=== PATIENT | female | born 2000 | race Caucasian/White ===

== ENCOUNTER 2018-07-16 19:07 | Emergency (ER) | payer MEDICAID, OTHER ==
[~2018-07-16] VITALS: Ht 167.6 cm; Wt 76.2 kg
[~2018-07-16 19:07] MED LIST: NORG1TAB7 PO
[2018-07-16 20:35] LABS: BASOPHILS % (AUTO) 0 % (0-10); EOSINOPHILS # (AUTO) 0.3 10^3/uL (0.0-0.3); EOSINOPHILS % (AUTO) 2 % (0-10); HEMATOCRIT 40 % (35-52); HEMOGLOBIN 13.4 G/DL (11.5-16.0); LYMPHOCYTES # (AUTO) 2.2 X 10^3 (1.0-4.0); LYMPHOCYTES % (AUTO) 22 % (12-44); MEAN CORPUSCULAR HEMOGLOBIN 30 PG (25-34); MEAN CORPUSCULAR HGB CONC 34 G/DL (32-36); MEAN CORPUSCULAR VOLUME 88 FL (80-99); MEAN PLATELET VOLUME 9.8 FL (7.4-10.4); MONOCYTES # (AUTO) 0.6 X 10^3 (0.0-1.0); MONOCYTES % (AUTO) 6 % (0-12); NEUTROPHILS # (AUTO) 7.2 X 10^3 (1.8-7.8); NEUTROPHILS % (AUTO) 70 % (42-75); PLATELET COUNT 308 10^3/uL (130-400); RED BLOOD COUNT 4.53 10^6/uL (4.35-5.85); RED CELL DISTRIBUTION WIDTH 12.2 % (10.0-14.5); WHITE BLOOD COUNT 10.3 10^3/uL (4.3-11.0)
[2018-07-16 20:56] LABS: BILIRUBIN,URINE NEGATIVE (NEGATIVE); CLARITY,URINE CLEAR; COLOR,URINE YELLOW; GLUCOSE, URINE (UA) NEGATIVE (NEGATIVE); KETONES,URINE NEGATIVE (NEGATIVE); LEUKOCYTE ESTERASE ,URINE 1+ (NEGATIVE); NITRITE,URINE NEGATIVE (NEGATIVE); PH,URINE 7 (5-9); PROTEIN,URINE NEGATIVE (NEGATIVE); UROBILINOGEN,URINE NORMAL (NORMAL)
[2018-07-16 21:00] LABS: ALANINE AMINOTRANSFERASE 8 U/L (0-55); ALBUMIN 4.4 GM/DL (3.2-4.5); ALKALINE PHOSPHATASE 69 U/L (40-136); AMYLASE 46 U/L (25-125); BILIRUBIN,TOTAL 0.4 MG/DL (0.1-1.0); CALCIUM 9.8 MG/DL (8.5-10.1); CARBON DIOXIDE 25 MMOL/L (21-32); CHLORIDE 104 MMOL/L (98-107); GLUCOSE 78 MG/DL (70-105); LIPASE 50 U/L (8-78); POTASSIUM 3.6 MMOL/L (3.6-5.0); SODIUM 141 MMOL/L (135-145); TOTAL PROTEIN 8.2 GM/DL (6.4-8.2)
[2018-07-16 21:10] LABS: AMPHETAMINE SCREEN, URINE NEGATIVE (NEGATIVE); BACTERIA,URINE FEW /HPF; BARBITURATE SCREEN URINE NEGATIVE (NEGATIVE); BENZODIAZEPINES SCREEN URINE NEGATIVE (NEGATIVE); CANNABINOID SCREEN, URINE NEGATIVE (NEGATIVE); COCAINE SCREEN URINE NEGATIVE (NEGATIVE); METHADONE STAT NEGATIVE (NEGATIVE); METHAMPHETAMINE SCREEN URINE S NEGATIVE (NEGATIVE); OPIATE SCREEN URINE NEGATIVE (NEGATIVE); OXYCODONE STAT NEGATIVE (NEGATIVE); PROPOXYPHENE STAT NEGATIVE (NEGATIVE); TRICYCLIC ANTIDEPRESSANTS SCRE NEGATIVE (NEGATIVE)
[2018-07-16 21:11] LABS: AMORPHOUS SEDIMENT,UR MOD AMOR PHOSPHATE /LPF
[2018-07-16 21:20] LABS: BUN/CREATININE RATIO 13; CREATININE SERUM 0.82 MG/DL (0.60-1.30); GFR ESTIMATED > 60; MAGNESIUM 2.3 MG/DL (1.8-2.4)
[2018-07-16] MEDS ORDERED: NS 250 ML (IVPB) BAG IV ONE (21:30)
[2018-07-16] MEDS ORDERED: IOHEXOL 350 MG/ML 100 ML (OMNIPAQUE 350) VIAL IV ONE (21:30)
[2018-07-16] MEDS ORDERED: RECEIVED CONTRAST (Hold Metformin) IV SCH (21:30)
--- NOTE | 2018-07-16 21:38 | ED General ---
General Chief Complaint: Cough/Cold/Flu Symptoms Stated Complaint: ABD PAIN Nursing Triage Note: PT STATES THAT FOR THE LAST MONTH AND A HALF, SHE HAS HAD ABDOMINAL PAIN AND NAUSEA INTERMITTENTLY. DENIES DIARRHEA OR VOMITING Source of Information: Patient (MULTIPLE COMPLAINTS, DIFFICULT TO KEEP ON SUBJECT, GIVES MUCH INCONSISTENT/CONFLICTING INFORMATION) History of Present Illness Date Seen by Provider: Jul 16, 2018 Time Seen by Provider: 20:05 Initial Comments MULTIPLE COMPLAINTS PT C/O MID ABDOMINAL PAIN OFF AND ON --STATES SHE HAS "HAD IT OFF AND ON FOR A LONG TIME" STATES IT HAS BEEN WORSE FOR THE LAST 1 1/2 MONTHS C/O NAUSEA 2 WEEKS AGO, BUT NONE SINCE. NO VOMITING NO DIARRHEA LAST BM 2 DAYS AGO, NORMAL NO URINARY SYMPTOMS C/O COUGH AND NASAL CONGESTION FOR A COUPLE OF WEEKS DOES NOT KNOW IS SHE HAS HAD FEVER OR NOT. NONE OF THESE SYMPTOMS ARE DIFFERENT TODAY IN ANY WAY HAS NOT SOUGHT CARE AT ANY TIME FOR THESE COMPLAINTS HAS NOT TAKEN ANYTHING FOR SYMPTOMS AT ANY TIME PT STATES "MY DAD WANTED ME TO SEE IF I WAS WITH TWINS" LMP BEGINNING OF JUNE. NO CONTROL. STATES PERIODS ARE ALWAYS IRREGULAR. NO PERIOD IN MAY PT MOVED HERE TO [place] FROM [place], [place] ABOUT A MONTH AGO PT'S 18 MONTH OLD CHILD WAS ADMITTED LAST WEEK 07/11 FOR PNEUMONIA AND IS STILL IN THE HOSPITAL. PT GIVES MUCH CONFLICTING INFORMATION TO WHO LIVES AT THE RESIDENCE--FIRST PT STATES "6" TOTAL, THEN STATES 5 ADULTS AND 3 KIDS. 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 REPORTEDLY ALL ADULTS IN HOME SMOKE PCP: NONE Allergies and Home Medications Allergies Coded Allergies: amoxicillin (Verified Allergy, Unknown, 05/22/15) penicillin (Verified Allergy, Unknown, 05/22/15) Home Medications Cefdinir 300 Mg Capsule, 300 MG PO BID Prescribed by: LILLY CASTREJON on 07/16/182241 Hyoscyamine Sulfate 0.125 Mg Tab.subl, 1-2 TAB SL Q4H Prescribed by: LILLY CASTREJON on 07/16/182241 Norgestimate-Ethinyl Estradiol 1 Each Tablet, 1 EACH PO UD Prescribed by: SAMANTHA FAY on 05/22/15 1725 Pantoprazole Sodium 40 Mg Tablet.dr, 40 MG PO DAILY Prescribed by: LILLY CASTREJON on 07/16/182241 Patient Home Medication List Home Medication List Reviewed: Yes Review of Systems Review of Systems Constitutional: see HPI, malaise EENTM: see HPI, nose congestion Respiratory: see HPI, cough; No short of breath, No wheezing Cardiovascular: no symptoms reported Gastrointestinal: see HPI, abdominal pain; No constipation, No diarrhea; nausea ; No vomiting Genitourinary: no symptoms reported : No LMP: Jun 24, 2018 Musculoskeletal: no symptoms reported Skin: no symptoms reported Psychiatric/Neurological: No Symptoms Reported Hematologic/Lymphatic: No Symptoms Reported Immunological/Allergic: no symptoms reported Past Vjimiin-Kdetqc-Xznicx Hx Patient Social History Alcohol Use: Denies Use Recreational Drug Use: No Smoking Status: Current Everyday Smoker (1 PPD) Type Used: Cigarettes Recent Foreign Travel: No Contact w/Someone Who Travel: No Recent Infectious Disease Expo: No Recent Hopitalizations: No Immunizations Up To Date PED Vaccines UTD: Yes Seasonal Allergies Seasonal Allergies: No Past Medical History Surgeries: No Respiratory: Yes Asthma Cardiac: No Neurological: No Reproductive Disorders: No Female Reproductive Disorders: Menstrual Problems Genitourinary: Yes Kidney Stones, UTI-Chronic Gastrointestinal: No Musculoskeletal: No Endocrine: No HEENT: No Cancer: No Psychosocial: Yes Anxiety, Depression Integumentary: No Blood Disorders: No Family Medical History No Pertinent Family Hx Physical Exam Vital Signs Vital Signs - First Documented 07/16/18 19:52 Temp 98.0 Pulse 100 Resp 20 B/P (MAP) 126/83 Pulse Ox 99 O2 Delivery Room Air Capillary Refill : Height, Weight, BMI Height: 5'6" Weight: 168lbs. oz. 76.973460ui; 27.11 BMI Method:Stated General Appearance: No Apparent Distress, WD/WN, Other ("SOBBING" BUT NO TEARS. DRAMATIC. DIFFICULT TO KEEP ON SUBJECT--ACTS VERY "SPACEY". REEKS OF CIGARETTES ) HEENT: PERRL/EOMI Neck: Full Range of Motion, Normal Inspection, Non Tender, Supple Respiratory: Normal Breath Sounds, No Accessory Muscle Use, No Respiratory Distress Cardiovascular: Regular Rate, Rhythm, No Edema, No JVD, No Murmur, Normal Peripheral Pulses Gastrointestinal: Normal Bowel Sounds, No Organomegaly, No Pulsatile Mass, Soft ; No Distended, No Guarding, No Hernia, No Mass; Tenderness (DIFFUSE TENDERNESS , MOST TENDER IN EPIGASTRIC AND RUQ. ) Back: Normal Inspection, No CVA Tenderness, No Vertebral Tenderness Extremity: Normal Capillary Refill, Normal Inspection, Normal Range of Motion, Non Tender, No Calf Tenderness, No Pedal Edema Neurologic/Psychiatric: Alert, Oriented x3, No Motor/Sensory Deficits, acid tank cleaner II- XII Norm as Tested Skin: Normal Color, Warm/Dry; No Rash Focused Exam Lactate Level 07/16/18 20:23: Lactic Acid Level 0.85 Lactic Acid Level Progress/Results/Core Measures Suspected Sepsis SIRS Temperature:98.0 Pulse: Respiratory Rate: Laboratory Tests 07/16/18 20:23: White Blood Count 10.3 Blood Pressure / Mean: 07/16/18 20:23: Lactic Acid Level 0.85 Laboratory Tests 07/16/18 20:23: Creatinine 0.82, Platelet Count 308, Total Bilirubin 0.4 Results/Orders Lab Results Laboratory Tests Test 07/16/18 20:11 07/16/18 20:23 Range/Units Urine Color YELLOW Urine Clarity CLEAR Urine pH 7 5-9 Urine Specific [place] 1.020 1.016-1.022 Urine Protein NEGATIVE NEGATIVE Urine Glucose (UA) NEGATIVE NEGATIVE Urine Ketones NEGATIVE NEGATIVE Urine Nitrite NEGATIVE NEGATIVE Urine Bilirubin NEGATIVE NEGATIVE Urine Urobilinogen NORMAL NORMAL MG/DL Urine Leukocyte Esterase 1+ H NEGATIVE Urine RBC (Auto) NEGATIVE NEGATIVE Urine RBC NONE /HPF Urine WBC 2-5 /HPF Urine Crystals PRESENT H /LPF Urine Amorphous Sediment MOD SHANIQUE PHOSPHATE H /LPF Urine Bacteria FEW H /HPF Urine Casts NONE /LPF Urine Mucus NEGATIVE /LPF Urine Culture Indicated NO Urine Opiates Screen NEGATIVE NEGATIVE Urine Oxycodone Screen NEGATIVE NEGATIVE Urine Methadone Screen NEGATIVE NEGATIVE Urine Propoxyphene Screen NEGATIVE NEGATIVE Urine Barbiturates Screen NEGATIVE NEGATIVE Ur Tricyclic Antidepressants Screen NEGATIVE NEGATIVE Urine Phencyclidine Screen NEGATIVE NEGATIVE Urine Amphetamines Screen NEGATIVE NEGATIVE Urine Methamphetamines Screen NEGATIVE NEGATIVE Urine Benzodiazepines Screen NEGATIVE NEGATIVE Urine Cocaine Screen NEGATIVE NEGATIVE Urine Cannabinoids Screen NEGATIVE NEGATIVE White Blood Count 10.3 4.3-11.0 10^3/uL Red Blood Count 4.53 4.35-5.85 10^6/uL Hemoglobin 13.4 11.5-16.0 G/DL Hematocrit 40 35-52 % Mean Corpuscular Volume 88 80-99 FL Mean Corpuscular Hemoglobin 30 25-34 PG Mean Corpuscular Hemoglobin Concent 34 32-36 G/DL Red Cell Distribution Width 12.2 10.0-14.5 % Platelet Count 308 130-400 10^3/uL Mean Platelet Volume 9.8 7.4-10.4 FL Neutrophils (%) (Auto) 70 42-75 % Lymphocytes (%) (Auto) 22 12-44 % Monocytes (%) (Auto) 6 0-12 % Eosinophils (%) (Auto) 2 0-10 % Basophils (%) (Auto) 0 0-10 % Neutrophils # (Auto) 7.2 1.8-7.8 X 10^3 Lymphocytes # (Auto) 2.2 1.0-4.0 X 10^3 Monocytes # (Auto) 0.6 0.0-1.0 X 10^3 Eosinophils # (Auto) 0.3 0.0-0.3 10^3/uL Basophils # (Auto) 0.0 0.0-0.1 10^3/uL Sodium Level 141 135-145 MMOL/L Potassium Level 3.6 3.6-5.0 MMOL/L Chloride Level 104 98-107 MMOL/L Carbon Dioxide Level 25 21-32 MMOL/L Anion Gap 12 5-14 MMOL/L Blood Urea Nitrogen 11 7-18 MG/DL Creatinine 0.82 0.60-1.30 MG/DL Estimat Glomerular Filtration Rate > 60 BUN/Creatinine Ratio 13 Glucose Level 78 70-105 MG/DL Lactic Acid Level 0.85 0.50-2.00 MMOL/L Calcium Level 9.8 8.5-10.1 MG/DL Corrected Calcium 9.5 8.5-10.1 MG/DL Magnesium Level 2.3 1.8-2.4 MG/DL Total Bilirubin 0.4 0.1-1.0 MG/DL Aspartate Amino Transf (AST/SGOT) 14 5-34 U/L Alanine Aminotransferase (ALT/SGPT) 8 0-55 U/L Alkaline Phosphatase 69 40-136 U/L Total Protein 8.2 6.4-8.2 GM/DL Albumin 4.4 3.2-4.5 GM/DL Amylase Level 46 25-125 U/L Lipase 50 8-78 U/L Serum Test, Qualitative NEGATIVE NEGATIVE Serum Alcohol < 10 <10 MG/DL Micro Results Microbiology 07/16/18 Influenza Types A,B Antigen (GABI) - Final, Complete My Orders Orders - LUCÍALILLY Katherine DO Saline Lock/Iv-Start (07/16/18 20:15) Urine Bedside (07/16/18 20:15) Amylase (07/16/18 20:15) Cbc With Automated Diff (07/16/18 20:15) Comprehensive Metabolic Panel (07/16/18 20:15) Drug Screen Stat (Urine) (07/16/18 20:15) Lactic Acid Analyzer (07/16/18 20:15) Magnesium (07/16/18 20:15) Ua Culture If Indicated (07/16/18 20:15) Blood Culture (07/16/18 20:15) Influenza A And B Antigens (07/16/18 20:15) Chest Pa/Lat (2 View) (07/16/18 20:15) Alcohol (07/16/18 20:15) Lipase (07/16/18 20:15) Hcg,Qualitative Serum (07/16/18 20:48) Ct Abdomen/Pelvis W (07/16/18 21:17) Iohexol Injection (Omnipaque 350 Mg/Ml 1 (07/16/18 21:30) Contrast Received (Contrast Received) (07/16/18 21:30) Ns (Ivpb) (Sodium Chloride 0.9%) (07/16/18 21:30) Medications Given in ED Current Medications Medications Dose Ordered Sig/Albin Route Start Time Stop Time Status Last Admin Dose Admin Iohexol 100 ml ONCE ONCE IV 07/16/18 21:30 07/16/18 21:45 DC 07/16/18 21:36 100 ML Sodium Chloride 250 ml ONCE ONCE IV 07/16/18 21:30 07/16/18 21:45 DC 07/16/18 21:36 80 ML Vital Signs/I&O 07/16/18 07/16/18 19:52 23:10 Temp 98.0 98.0 Pulse 100 100 Resp 20 20 B/P (MAP) 126/83 Pulse Ox 99 99 O2 Delivery Room Air Room Air Capillary Refill : Progress Note : Progress Note NO COUGH NOTED AT ANY TIME NO FURTHER C/O ABDOMINAL PAIN OR ANY OTHER SYMPTOMS FOR REMAINDER OF ER STAY STRESSED THE IMPORTANCE OF ESTABLISHING WITH LOCAL DR SOON POSSIBLE--PT SEEMED TO HAVE DIFFICULTY UNDERSTANDING THIS CONCEPT. Diagnostic Imaging Comments CT ABDOMEN/PELVIS--NO ACUTE PROCESS, SMALL RIGHT OVARIAN CYST AND TRACE FREE PELVIC FLUID, PER RADIOLOGIST REPORT @ 2238 CXR-NO ACUTE PROCESS, PER RADIOLOGIST REPORT AT 2238 Reviewed: Reviewed by Me Departure Impression Primary Impression: Abdominal pain Additional Impression: Upper respiratory infection Disposition: HOME, SELF-CARE Condition: Stable Departure-Patient Inst. Referrals: NO,LOCAL PHYSICIAN (PCP/Family) Primary Care Physician Patient Instructions: Acute Abdomen (Belly Pain), Adult (DC), Cough, Runny Nose , and the Common Cold (DC) Add. Discharge Instructions: LOTS OF CLEAR LIQUIDS TYLENOL AND MOTRIN NEEDED FOR PAIN OR FEVER OVER THE COUNTER MEDICATIONS FOR COUGH AND CONGESTION FOLLOW UP WITH DR. OF [place] IN 4-5 DAYS IF NO BETTER, OTHERWISE CALL IN AM TO ARRANGE FOR FOLLOW UP APPOINTMENT TO ESTABLISH CARE WITH DR OF CHOICE All discharge instructions reviewed with patient and/or family. Voiced understanding. Scripts Pantoprazole Sodium (Protonix) 40 Mg Tablet.dr 40 MG PO DAILY, #15 TAB Prov: LILLY CASTREJON DO 07/16/18 Hyoscyamine Sulfate (Levsin-Sl) 0.125 Mg Tab.subl 1-2 TAB SL Q4H for Abdominal Pain, #10 TAB Prov: LILLY CASTREJON DO 07/16/18 Cefdinir (Cefdinir) 300 Mg Capsule 300 MG PO BID for FOR INFECTION, #20 CAP Prov: LILLY CASTREJON DO 07/16/18 LILLY CASTREJON DO Jul 16, 2018 21:37
--- NOTE | 2018-07-16 21:41 | Diagnostic Imaging Report ---
INDICATION: Cough. Fever. Shortness of air. COMPARISON: None FINDINGS: Frontal and lateral views of the chest demonstrate normal heart size and pulmonary vascularity. The lungs are clear. There are no signs of infiltrate, pleural effusions or pneumothoraces. The visualized osseous structures show no acute abnormalities. IMPRESSION: 1. No acute process. No signs of infiltrates, effusions or pneumothoraces. Dictated by: Dictated on workstation # [id number]
--- NOTE | 2018-07-16 22:32 | Diagnostic Imaging Report ---
PROCEDURE: CT abdomen and pelvis with contrast. TECHNIQUE: Multiple contiguous axial images were obtained through the abdomen and pelvis after administration of intravenous contrast. INDICATION: Right upper quadrant and right-sided flank pain. COMPARISON: None. FINDINGS: The included portions of the lung bases are clear. CT ABDOMEN: Small bowel loops are nondistended. Normal appendix is identified. Bilateral kidneys, adrenal glands, spleen, pancreas, and liver have an unremarkable CT appearance. There is focal fatty infiltrate of the liver along the falciform ligament anteriorly. There is no loculated fluid collection, free fluid, or free air within the abdomen. No abnormal mesenteric or retroperitoneal adenopathy is seen. Bony structures show no acute abnormalities. CT PELVIS: Right adnexal cystic structure measures 1.7 x 2.5 cm. There is small amount of free fluid within the pelvis. There is no loculated fluid collection or free air. No abnormal adenopathy is seen. Bony structures show no acute abnormalities. IMPRESSION: 1. Small amount of free fluid in the pelvis; likely physiologic. 2. Probable right ovarian cyst. Dictated by: Dictated on workstation # [id number]
[2018-07-16] MEDS ORDERED: HYOS0.1283 SL (22:42)
[2018-07-16] MEDS ORDERED: PANT40TA2 PO (22:42)
[2018-07-16] MEDS ORDERED: CEFD300C3 PO (22:42)
== END 2018-07-16 23:14 | disposition home or self-care (01) ==
LOC: EDUNIT# 19:07 → ER 19:08
DX: R10.13 Epigastric pain (principal); J06.9 Acute upper respiratory infection, unspecified; J45.909 Unspecified asthma, uncomplicated; F41.9 Anxiety disorder, unspecified; F32.9 Major depressive disorder, single episode, unspecified; F17.210 Nicotine dependence, cigarettes, uncomplicated; Z88.0 Allergy status to penicillin; Z87.442 Personal history of urinary calculi; Z87.440 Personal history of urinary (tract) infections
CPT/HCPCS: 36415; 71046; 74177; 80053; 80306; 80320; 81000; 82150; 83605; 83690; 83735; 84703; 85025; 87040; 87804

== ENCOUNTER → 2018-08-20 | Emergency (ER) | payer MEDICAID ==
[~2018-08-20] VITALS: Ht 167.6 cm; Wt 76.2 kg
[~2018-08-20] MED LIST changes: +CEFD300C3 PO; +HYOS0.1283 SL; +NITR-65 PO; +ONDANSETRON 4 MG (ZOFRAN) ORAL DISSOLVE TAB PO ONE; +PANT40TA2 PO; +RX-NITROFURANTOIN 100 MG (MACROBID) CAP PPK#2 PO STA
--- OUTSIDE RECORDS SUMMARY | 2018-08-20 18:18 | XMS REPORT | Referral Summary ---
Author Author [facility] Organization [facility] Address Unknown Phone Unavailable Care Team Providers Care Adjunct Instructor Name Role Phone Kosta Painter PCP Encounter VC Date(s): 12/14/16 - 12/14/16 [facility] [address] [place], [place] [address] Discharge Disposition: 01-Home or Self Care Attending Physician: Kosta Painter MD Admitting Physician: Kosta Painter MD Vital Signs Most recent to 1 oldest [Reference Range]: Temperature Oral 36.4 degC [35.8-37.3 degC] (12/14/16 6:38 PM) Peripheral Pulse 75 bpm Rate [60-100 bpm] (12/14/16 6:38 PM) Heart Rate Monitored 67 bpm [60-100 bpm] (12/14/16 8:15 PM) Respiratory Rate 18 br/min [14-20 br/min] (12/14/16 6:38 PM) Blood Pressure 88/59 mmHg [90-140/60-90 mmHg] *LOW* (12/14/16 8:15 PM) Problem List Condition Effective Dates Status Health Status Informant Beta lactam Active resistant bacterial infection(Confirmed) 1 Methicillin Active resistant Staphylococcus aureus(Confirmed)2 (Confirmed) 03/21/16 Active 1Skin from Arm L collected 07/11/16 16:06:00 CERTIFIED ATHLETIC TRAINER 2Skin from Arm L collected 07/11/16 16:06:00 CERTIFIED ATHLETIC TRAINER Allergies, Adverse Reactions, Alerts Substance Reaction Severity Status amoxicillin HIVES Active Medications ferrous sulfate Oral, 0 Refill(s) Start Date: 11/04/16 Status: Ordered FLUoxetine Oral, 0 Refill(s) Start Date: 11/04/16 Status: Ordered Multivitamins 1 tabs, Oral, Daily, 0 Refill(s) Start Date: 05/26/16 Status: Ordered ProAir HFA 90 mcg/inh inhalation aerosol 2 puffs, Inhalation, QID, as needed for wheezing, # 8.5 g, 11 Refill(s), Pharmacy: [facility] Start Date: 06/17/16 Status: Ordered Results Urinalysis Most recent to 1 oldest [Reference Range]: UA Color Yellow (12/14/16 7:55 PM) UA Appear Cloudy *ABN* (12/14/16 7:55 PM) UA pH [5.0-8.0] 6.0 (12/14/16 7:55 PM) UA Leuk Est Negative [Negative] (12/14/16 7:55 PM) UA Nitrite Negative [Negative] (12/14/16 7:55 PM) UA Protein Negative [Negative] (12/14/16 7:55 PM) UA Glucose Pos 1+ [Negative] *ABN* (12/14/16 7:55 PM) UA Ketones Negative [Negative] (12/14/16 7:55 PM) UA Urobilinogen Negative [<1.0] (12/14/16 7:55 PM) UA Bili [Negative] Negative (12/14/16 7:55 PM) UA Blood [Negative] Negative (12/14/16 7:55 PM) UA Spec Grav 1.015 [1.003-1.030] (12/14/16 7:55 PM) Type Clean Catch (12/14/16 7:55 PM) Microbiology Reports TEST: Affirm Vaginitis Panel STATUS: Auth (Verified) BODY SITE: SOURCE: Cervix/Vaginal COLLECTED DATE/TIME: 12/14/16 7:55 PM Affirm Vaginitis Panel Negative for Trichomonas vaginalis Negative for Gardnerella vaginalis Negative for Shira species Immunizations Given and Recorded Vaccine Date Status Refusal Reason tetanus/diphth/pertuss (Tdap) adult/adol 11/23/16 Given influenza virus vaccine, inactivated 05/26/16 Given Procedures No data available for this section Social History Social History Type Response Smoking Status Never smoker Assessment and Plan No data available for this section
--- OUTSIDE RECORDS SUMMARY | 2018-08-20 18:18 | XMS REPORT | Referral Summary ---
Author Author [facility] Organization [facility] Address Unknown Phone Unavailable Care Team Providers Care Hammer Fitter Name Role Phone Kosta Painter PCP Encounter VC Date(s): 01/04/17 - 01/04/17 [facility] [address], [address] [address] Discharge Diagnosis: Superficial thrombophlebitis Discharge Disposition: 01-Home or Self Care Attending Physician: Kosta Painter MD Vital Signs Most recent to 1 oldest [Reference Range]: Blood Pressure 100/70 mmHg [90-140/60-90 mmHg] (01/04/17 4:15 PM) Problem List Condition Effective Dates Status Health Status Informant Acute Active pain(Confirmed) Beta lactam Active resistant bacterial infection(Confirmed) 1 Methicillin Active resistant Staphylococcus aureus(Confirmed)2 (Confirmed) 03/21/16 - 12/31/16 Resolved 1Skin from Arm L collected 07/11/16 16:06:00 SENIOR GL ACCOUNTANT 2Skin from Arm L collected 07/11/16 16:06:00 SENIOR GL ACCOUNTANT Allergies, Adverse Reactions, Alerts Substance Reaction Severity Status amoxicillin HIVES Active Medications Colace 100 mg oral capsule 100 mg 1 caps, Oral, Daily, as needed for constipation, # 30 caps, 5 Refill(s) Start Date: 01/01/17 Status: Ordered FLUoxetine 10 mg oral capsule 10 mg 1 caps, Oral, Daily, # 30 caps, 0 Refill(s) Start Date: 01/02/17 Status: Ordered ibuprofen 800 mg oral tablet 800 mg 1 tabs, Oral, q8hr, as needed for pain, # 30 tabs, 0 Refill(s) Start Date: 01/01/17 Stop Date: 02/01/17 Status: Ordered Keflex 500 mg oral capsule 500 mg 1 caps, Oral, TID, X 7 days, # 21 caps, 0 Refill(s), Pharmacy: [facility], 1 caps Oral TID,x7 days Start Date: 01/04/17 Stop Date: 01/11/17 Status: Ordered Results No data available for this section Immunizations Given and Recorded Vaccine Date Status Refusal Reason tetanus/diphth/pertuss (Tdap) adult/adol 11/23/16 Given influenza virus vaccine, inactivated 05/26/16 Given Procedures No data available for this section Social History Social History Type Response Smoking Status Never smoker Assessment and Plan Extracted from: Title: Office Visit Note Author: Kosta Painter MD Date: 01/04/17 Assessment/Plan Superficial thrombophlebitis Keflex for a week and warm compresses, careful observation and call if this persists or worsens, her baby is still in the NICU at with suspected congenital CMV. Ordered: Office Visit Level 3 Est [address]902
--- OUTSIDE RECORDS SUMMARY | 2018-08-20 18:18 | XMS REPORT | Referral Summary ---
Author Author [facility] Organization [facility] Address Unknown Phone Unavailable Care Team Providers Care Synthetic Staple Extruder Name Role Phone Kosta Painter PCP Encounter VC Date(s): 05/27/16 - 05/27/[address] [facility] [address] [place], [place] [address] Discharge Diagnosis: Threatened miscarriage Final: Threatened Final: Less than 8 weeks gestation of Discharge Diagnosis: Threatened miscarriage Discharge Disposition: 01-Home or Self Care Attending Physician: Shannen Choudhury MD Admitting Physician: Shannen Choudhury MD Vital Signs Most recent to 1 oldest [Reference Range]: Temperature Oral 37.0 degC [36.0-37.6 degC] (05/27/16 11:42 AM) Peripheral Pulse 78 bpm Rate [55-90 bpm] (05/27/16 2:39 PM) Respiratory Rate 16 br/min [14-20 br/min] (05/27/16 2:39 PM) Blood Pressure 101/60 mmHg [90-138/45-84 mmHg] (05/27/16 2:39 PM) SpO2 100 % (05/27/16 2:39 PM) Problem List Condition Effective Dates Status Health Status Informant (Confirmed) 03/21/16 Active Allergies, Adverse Reactions, Alerts Substance Reaction Severity Status amoxicillin HIVES Active Medications Multivitamins 1 tabs, Oral, Daily, 0 Refill(s) Start Date: 05/26/16 Status: Ordered Zofran 0 Refill(s) Start Date: 05/27/16 Status: Ordered Results Chemistry Most recent to 1 oldest [Reference Range]: [place] [address] mIU/mL 1 (05/27/16 12:40 PM) 1Result Comment: Normal Ranges for Quantitative Beta-HCG are as follows: Non- Females: 0 - 5 Gestation Wks 95% Range 0.2 - 1 4 - 50 1 - 2 50 - 500 2 - 3 100 - 5000 3 - 4 500 - 10,000 4 - 5 1,000 - 50,000 5 - 6 10,000 - 100,000 6 - 8 15,000 - 200,000 8 - 12 10,000 - 100,000 Urinalysis Most recent to 1 oldest [Reference Range]: UA Color Yellow (05/27/16 12:22 PM) UA Appear Clear (05/27/16 12:22 PM) UA pH [5.0-8.0] 6.0 (05/27/16 12:22 PM) UA Leuk Est Pos 1+ [Negative] *ABN* (05/27/16 12:22 PM) UA Nitrite Negative [Negative] (05/27/16 12:22 PM) UA Protein Negative [Negative] (05/27/16 12:22 PM) UA Glucose Negative [Negative] (05/27/16 12:22 PM) UA Ketones Negative [Negative] (05/27/16 12:22 PM) UA Urobilinogen Negative [<1.0] (05/27/16 12:22 PM) UA Bili [Negative] Negative (05/27/16 12:22 PM) UA Blood [Negative] Negative (05/27/16 12:22 PM) UA Spec Grav 1.010 [1.003-1.030] (05/27/16 12:22 PM) Type Clean Catch (05/27/16 12:22 PM) UA WBC [0-4] 0-2 (05/27/16 12:22 PM) UA RBC [0-2] 0-2 (05/27/16 12:22 PM) Epithelial Cells 0-2 (05/27/16 12:22 PM) UA Bacteria Moderate *ABN* (05/27/16 12:22 PM) UA Mucous Present (05/27/16 12:22 PM) Blood Bank Results Most recent to 1 oldest [Reference Range]: Rh Type POS (05/27/16 12:40 PM) Microbiology Reports TEST: Affirm Vaginitis Panel STATUS: Auth (Verified) BODY SITE: SOURCE: Cervix/Vaginal COLLECTED DATE/TIME: 05/27/16 12:40 PM Affirm Vaginitis Panel Negative for Trichomonas vaginalis Negative for Gardnerella vaginalis Negative for Shira species Immunizations Vaccine Date Refusal Reason influenza virus vaccine, inactivated 05/26/16 Procedures No data available for this section Social History Social History Type Response Smoking Status Never smoker Assessment and Plan No data available for this section
--- OUTSIDE RECORDS SUMMARY | 2018-08-20 18:18 | XMS REPORT | Referral Summary ---
Author Author [facility] Organization [facility] Address Unknown Phone Unavailable Care Team Providers Care Print Finishing Worker Name Role Phone Kosta Painter PCP Encounter VC Date(s): 07/11/16 - 07/11/16 [facility] [address], [facility] [address] [place], [place] [address] Discharge Disposition: 01-Home or Self Care Attending Physician: Subhash Watts MD Admitting Physician: Subhash Watts MD Referring Physician: Kosta Painter MD Vital Signs No data available for this section Problem List Condition Effective Dates Status Health Status Informant (Confirmed) 03/21/16 Active Allergies, Adverse Reactions, Alerts Substance Reaction Severity Status amoxicillin HIVES Active Medications Bactrim DS 800 mg-160 mg oral tablet 1 tabs, Oral, BID, X 10 days, # 20 tabs, 0 Refill(s), Pharmacy: [facility] Start Date: 07/06/16 Stop Date: 07/16/16 Status: Ordered clindamycin 300 mg oral capsule 300 mg 1 caps, Oral, q8hr, # 30 caps, 0 Refill(s), Pharmacy: [facility], 1 caps Oral q8hr Start Date: 07/11/16 Stop Date: 07/21/16 Status: Ordered Multivitamins 1 tabs, Oral, Daily, 0 Refill(s) Start Date: 05/26/16 Status: Ordered ProAir HFA 90 mcg/inh inhalation aerosol 2 puffs, Inhalation, QID, as needed for wheezing, # 8.5 g, 11 Refill(s), Pharmacy: [facility] Start Date: 06/17/16 Status: Ordered Zofran 0 Refill(s) Start Date: 05/27/16 Status: Ordered Results No data available for this section Immunizations Vaccine Date Refusal Reason influenza virus vaccine, inactivated 05/26/16 Procedures No data available for this section Social History Social History Type Response Smoking Status Never smoker Assessment and Plan No data available for this section
--- OUTSIDE RECORDS SUMMARY | 2018-08-20 18:18 | XMS REPORT | Referral Summary ---
Author Author [facility] Organization [facility] Address Unknown Phone Unavailable Care Team Providers Care Director Targeted Marketing Name Role Phone Kosta Painter PCP Encounter VC Date(s): 08/16/16 - 08/16/16 [facility] [address], [facility] [address] [place], [place] [address] Discharge Diagnosis: Primigravida in second trimester Discharge Disposition: 01-Home or Self Care Attending Physician: Kosta Painter MD Admitting Physician: Kosta Painter MD Vital Signs Most recent to 1 oldest [Reference Range]: Blood Pressure 110/60 mmHg [90-138/45-84 mmHg] (08/16/16 3:55 PM) Problem List Condition Effective Dates Status Health Status Informant Beta lactam Active resistant bacterial infection(Confirmed) 1 Methicillin Active resistant Staphylococcus aureus(Confirmed)2 (Confirmed) 03/21/16 Active 1Skin from Arm L collected 07/11/16 16:06:00 LEGAL ANALYST 2Skin from Arm L collected 07/11/16 16:06:00 LEGAL ANALYST Allergies, Adverse Reactions, Alerts Substance Reaction Severity Status amoxicillin HIVES Active Medications Multivitamins 1 tabs, Oral, Daily, 0 Refill(s) Start Date: 05/26/16 Status: Ordered ProAir HFA 90 mcg/inh inhalation aerosol 2 puffs, Inhalation, QID, as needed for wheezing, # 8.5 g, 11 Refill(s), Pharmacy: [facility] Start Date: 06/17/16 Status: Ordered Zofran 0 Refill(s) Start Date: 05/27/16 Status: Ordered Results No data available for this section Immunizations Given and Recorded Vaccine Date Status Refusal Reason influenza virus vaccine, inactivated 05/26/16 Given Procedures No data available for this section Social History Social History Type Response Smoking Status Never smoker Assessment and Plan Extracted from: Title: Office Visit Note Author: Kosta Painter MD Date: 08/16/16 Assessment/Plan Primigravida in second trimester routine care, RTC 4 weeks, see ob flow Ordered: services 3003 Return to Clinic Referrals to Other Providers Referred by: Kosta Painter MD
--- OUTSIDE RECORDS SUMMARY | 2018-08-20 18:18 | XMS REPORT | Referral Summary ---
Author Author [facility] Organization [facility] Address Unknown Phone Unavailable Care Team Providers Care Wardrobe Consultant Name Role Phone Kosta Painter PCP Encounter VC Date(s): 05/26/16 - 05/26/16 [facility] [address], [facility] [address] [place], [place] [address] Discharge Diagnosis: Primigravida in first trimester Discharge Disposition: 01-Home or Self Care Attending Physician: Kosta Painter MD Admitting Physician: Kosta Painter MD Vital Signs Most recent to 1 oldest [Reference Range]: Peripheral Pulse 85 bpm Rate [55-90 bpm] (05/26/16 3:08 PM) Blood Pressure 82/50 mmHg [90-138/45-84 mmHg] *LOW* (05/26/16 3:08 PM) SpO2 98 % (05/26/16 3:08 PM) Problem List Condition Effective Dates Status Health Status Informant (Confirmed) 03/21/16 Active Allergies, Adverse Reactions, Alerts Substance Reaction Severity Status amoxicillin HIVES Active Medications Multivitamins 1 tabs, Oral, Daily, 0 Refill(s) Start Date: 05/26/16 Status: Ordered Results Hematology Most recent to 1 oldest [Reference Range]: WBC [4.5-13.0 7.0 10*3/uL 10*3/uL] (05/26/16 3:56 PM) RBC [4.10-5.10] 3.89 *LOW* (05/26/16 3:56 PM) Hgb [11.5-15.5 11.1 gm/dL gm/dL] *LOW* (05/26/16 3:56 PM) Hct [36.0-46.0 %] 32.5 % *LOW* (05/26/16 3:56 PM) MCV [78.0-102.0 fL] 83.5 fL (05/26/16 3:56 PM) MCH [25.0-35.0 pg] 28.5 pg (05/26/16 3:56 PM) MCHC [31.0-37.0 34.2 gm/dL gm/dL] (05/26/16 3:56 PM) RDW [11.5-14.5 %] 13.0 % (05/26/16 3:56 PM) Platelet [150-400 197 10*3/uL 10*3/uL] (05/26/16 3:56 PM) MPV [8.8-14.8 fL] 10.2 fL (05/26/16 3:56 PM) Neutrophils [51-75 29 % %] *LOW* (05/26/16 3:56 PM) Band Man [0-8 %] 3 % (05/26/16 3:56 PM) Lymphocytes [20-46 64 % %] *HI* (05/26/16 3:56 PM) Monocytes [4-11 %] 4 % (05/26/16 3:56 PM) Eosinophils [0-4 %] 0 % (05/26/16 3:56 PM) Basophils [0-2 %] 0 % (05/26/16 3:56 PM) Neutro Absolute 2.24 10*3 [1.80-8.00 10*3] (05/26/16 3:56 PM) Lymph Absolute 4.48 10*3 [1.20-5.20 10*3] (05/26/16 3:56 PM) [place] Absolute 0.28 10*3 [0.00-0.80 10*3] (05/26/16 3:56 PM) Eos Absolute 0.00 10*3 [0.00-0.60 10*3] (05/26/16 3:56 PM) Baso Absolute 0.00 10*3 [0.00-0.20 10*3] (05/26/16 3:56 PM) Differential Manual *ABN* (05/26/16 3:56 PM) Chemistry Most recent to 1 oldest [Reference Range]: Hep Bs Ag Negative (05/26/16 3:56 PM) HIV 1 and 2 Abs Negative (05/26/16 3:56 PM) Blood Bank Results Most recent to 1 oldest [Reference Range]: ABO/Rh B POS (05/26/16 3:56 PM) Antibody Screen Tube NEG (05/26/16 3:56 PM) Immunizations Vaccine Date Refusal Reason influenza virus vaccine, inactivated 05/26/16 Procedures No data available for this section Social History Social History Type Response Smoking Status Former smoker; Type: Cigarettes Assessment and Plan Extracted from: Title: Office Visit Note Author: Kosta Painter MD Date: 05/26/16 Assessment/Plan Primigravida in first trimester IOB, PNV, lab, instructions and booklet, RTC 3 weeks, flu shot today, call if problems. Ordered: influenza virus vaccine, inactivated, 0.5 mL, IntraMuscular, Once, First Dose: 05/26/16 15:46:00 CDT, Stop Date: 05/26/16 15:46:00 CDT Chlamydia/GC Nucleic Acid Screen HIV Antigen/Antibody Initial ob visit 3001 Obstetric Panel Return to Clinic Urine Culture
--- OUTSIDE RECORDS SUMMARY | 2018-08-20 18:18 | XMS REPORT | Referral Summary ---
Author Author [facility] Organization [facility] Address Unknown Phone Unavailable Care Team Providers Care Youth Ministry Director Name Role Phone Kosta Painter PCP Encounter VC Date(s): 11/23/16 - 11/23/16 [facility] [address], [facility] [address] [place], [place] [address] Discharge Diagnosis: Primigravida in third trimester Discharge Disposition: 01-Home or Self Care Attending Physician: Kosta Painter MD Vital Signs Most recent to 1 oldest [Reference Range]: Blood Pressure 112/60 mmHg [90-140/60-90 mmHg] (11/23/16 4:03 PM) Problem List Condition Effective Dates Status Health Status Informant Beta lactam Active resistant bacterial infection(Confirmed) 1 Methicillin Active resistant Staphylococcus aureus(Confirmed)2 (Confirmed) 03/21/16 Active 1Skin from Arm L collected 07/11/16 16:06:00 APPEALS EXAMINER 2Skin from Arm L collected 07/11/16 16:06:00 APPEALS EXAMINER Allergies, Adverse Reactions, Alerts Substance Reaction Severity Status amoxicillin HIVES Active Medications ferrous sulfate Oral, 0 Refill(s) Start Date: 11/04/16 Status: Ordered FLUoxetine Oral, 0 Refill(s) Start Date: 11/04/16 Status: Ordered Multivitamins 1 tabs, Oral, Daily, 0 Refill(s) Start Date: 05/26/16 Status: Ordered ProAir HFA 90 mcg/inh inhalation aerosol 2 puffs, Inhalation, QID, as needed for wheezing, # 8.5 g, 11 Refill(s), Pharmacy: [facility] Start Date: 06/17/16 Status: Ordered Results No data available for this section Immunizations Given and Recorded Vaccine Date Status Refusal Reason tetanus/diphth/pertuss (Tdap) adult/adol 11/23/16 Given influenza virus vaccine, inactivated 05/26/16 Given Procedures No data available for this section Social History Social History Type Response Smoking Status Never smoker Assessment and Plan Extracted from: Title: Office Visit Note Author: Kosta Painter MD Date: 11/23/16 Assessment/Plan Primigravida in third trimester routine care, Tdap, RTC 2 weeks, call if problems. Ordered: tetanus/diphth/pertuss (Tdap) adult/adol, 0.5 mL, IntraMuscular, Once, First Dose: 11/23/16 17:00:00 CDT, Stop Date: 11/23/16 17:00:00 CDT services 3003 Return to Clinic Referrals to Other Providers Referred by: Kosta Painter MD
--- OUTSIDE RECORDS SUMMARY | 2018-08-20 18:19 | XMS REPORT | Referral Summary ---
Author Author [facility] Organization [facility] Address Unknown Phone Unavailable Care Team Providers Care Cooper Apprentice Name Role Phone Kosta Painter PCP Encounter VC Date(s): 12/27/16 - 12/27/16 [facility] [address], [address] [address] Discharge Diagnosis: Primigravida in third trimester Discharge Disposition: 01-Home or Self Care Attending Physician: Kosta Painter MD Vital Signs Most recent to 1 oldest [Reference Range]: Blood Pressure 102/64 mmHg [90-140/60-90 mmHg] (12/27/16 3:00 PM) Problem List Condition Effective Dates Status Health Status Informant Beta lactam Active resistant bacterial infection(Confirmed) 1 Methicillin Active resistant Staphylococcus aureus(Confirmed)2 (Confirmed) 03/21/16 Active 1Skin from Arm L collected 07/11/16 16:06:00 CHAIR PAD MAKER 2Skin from Arm L collected 07/11/16 16:06:00 CHAIR PAD MAKER Allergies, Adverse Reactions, Alerts Substance Reaction Severity Status amoxicillin HIVES Active Medications ferrous sulfate Oral, 0 Refill(s) Start Date: 11/04/16 Status: Ordered FLUoxetine Oral, 0 Refill(s) Start Date: 11/04/16 Status: Ordered Multivitamins 1 tabs, Oral, Daily, 0 Refill(s) Start Date: 05/26/16 Status: Ordered ProAir HFA 90 mcg/inh inhalation aerosol 2 puffs, Inhalation, QID, as needed for wheezing, # 8.5 g, 11 Refill(s), Pharmacy: [facility] Start Date: 06/17/16 Status: Ordered Results Urinalysis Most recent to 1 oldest [Reference Range]: Leukocytes Urine Negative Dipstick (12/27/16 4:11 PM) Nitrite Urine Negative Dipstick (12/27/16 4:11 PM) Urobilinogen Urine 1 mg/dl Dipstick (12/27/16 4:11 PM) Protein Urine Negative Dipstick (12/27/16 4:11 PM) pH Urine Dipstick 7 (12/27/16 4:11 PM) Ketones Urine Negative Dipstick (12/27/16 4:11 PM) Blood Urine Dipstick Negative (12/27/16 4:11 PM) Bilirubin Urine Negative Dipstick (12/27/16 4:11 PM) Specific [place] 1.025 Urine Dipstick (12/27/16 4:11 PM) Glucose Urine Negative Dipstick (12/27/16 4:11 PM) Urine Color Urine Yellow Dipstick (12/27/16 4:11 PM) Urine Appearance Clear Urine Dipstick (12/27/16 4:11 PM) Immunizations Given and Recorded Vaccine Date Status Refusal Reason tetanus/diphth/pertuss (Tdap) adult/adol 11/23/16 Given influenza virus vaccine, inactivated 05/26/16 Given Procedures No data available for this section Social History Social History Type Response Smoking Status Never smoker Assessment and Plan Extracted from: Title: Office Visit Note Author: Kosta Painter MD Date: 12/27/16 Assessment/Plan Primigravida in third trimester routine care, one week, call if problems Ordered: services 3003 Return to Clinic
--- OUTSIDE RECORDS SUMMARY | 2018-08-20 18:19 | XMS REPORT | Referral Summary ---
Author Author [facility] Organization [facility] Address Unknown Phone Unavailable Care Team Providers Care Fringe Weaver Name Role Phone Kosta Painter PCP Encounter VC Date(s): 11/04/16 - 11/04/16 [facility] [address] [place], [place] [address] Discharge Disposition: 01-Home or Self Care Attending Physician: Kosta Painter MD Admitting Physician: Alannah Elkins MD Vital Signs Most recent to 1 oldest [Reference Range]: Temperature Oral 36.7 degC [35.8-37.3 degC] (11/04/16 6:38 PM) Peripheral Pulse 77 bpm Rate [60-100 bpm] (11/04/16 6:38 PM) Heart Rate Monitored 72 bpm [60-100 bpm] (11/04/16 8:30 PM) Respiratory Rate 20 br/min [14-20 br/min] (11/04/16 6:38 PM) Blood Pressure 99/56 mmHg [90-140/60-90 mmHg] (11/04/16 8:30 PM) Problem List Condition Effective Dates Status Health Status Informant Beta lactam Active resistant bacterial infection(Confirmed) 1 Methicillin Active resistant Staphylococcus aureus(Confirmed)2 (Confirmed) 03/21/16 Active 1Skin from Arm L collected 07/11/16 16:06:00 COMPUTER SYSTEMS ARCHITECT 2Skin from Arm L collected 07/11/16 16:06:00 COMPUTER SYSTEMS ARCHITECT Allergies, Adverse Reactions, Alerts Substance Reaction Severity Status amoxicillin HIVES Active Medications ferrous sulfate Oral, 0 Refill(s) Start Date: 11/04/16 Status: Ordered FLUoxetine Oral, 0 Refill(s) Start Date: 11/04/16 Status: Ordered Multivitamins 1 tabs, Oral, Daily, 0 Refill(s) Start Date: 05/26/16 Status: Ordered ProAir HFA 90 mcg/inh inhalation aerosol 2 puffs, Inhalation, QID, as needed for wheezing, # 8.5 g, 11 Refill(s), Pharmacy: [facility] Start Date: 06/17/16 Status: Ordered Results Urinalysis Most recent to 1 oldest [Reference Range]: UA Color Yellow (11/04/16 7:56 PM) UA Appear Cloudy *ABN* (11/04/16 7:56 PM) UA pH [5.0-8.0] 8.0 (11/04/16 7:56 PM) UA Leuk Est Negative [Negative] (11/04/16 7:56 PM) UA Nitrite Negative [Negative] (11/04/16 7:56 PM) UA Protein Negative [Negative] (11/04/16 7:56 PM) UA Glucose Negative [Negative] (11/04/16 7:56 PM) UA Ketones Pos 1+ [Negative] *ABN* (11/04/16 7:56 PM) UA Urobilinogen Negative [<1.0] (11/04/16 7:56 PM) UA Bili [Negative] Negative (11/04/16 7:56 PM) UA Blood [Negative] Negative (11/04/16 7:56 PM) UA Spec Grav 1.020 [1.003-1.030] (11/04/16 7:56 PM) Type Clean Catch (11/04/16 7:56 PM) Microbiology Reports TEST: Affirm Vaginitis Panel STATUS: Auth (Verified) BODY SITE: SOURCE: Vaginal COLLECTED DATE/TIME: 11/04/16 7:56 PM Affirm Vaginitis Panel Negative for Trichomonas [...]
--- OUTSIDE RECORDS SUMMARY | 2018-08-20 18:19 | XMS REPORT | Referral Summary ---
Author Author [facility] Organization [facility] Address Unknown Phone Unavailable Care Team Providers Care Dentures Lab Technician Name Role Phone Kosta Painter PCP Encounter VC Date(s): 07/06/16 - 07/06/16 [facility] [address], [facility] [address] [place], [place] [address] Discharge Diagnosis: Boil Discharge Disposition: 01-Home or Self Care Attending Physician: Kosta Painter MD Vital Signs No data available for this section Problem List Condition Effective Dates Status Health Status Informant (Confirmed) 03/21/16 Active Allergies, Adverse Reactions, Alerts Substance Reaction Severity Status amoxicillin HIVES Active Medications Bactrim DS 800 mg-160 mg oral tablet 1 tabs, Oral, BID, X 10 days, # 20 tabs, 0 Refill(s), Pharmacy: [facility] Start Date: 07/06/16 Stop Date: 07/16/16 Status: Ordered Multivitamins 1 tabs, Oral, Daily, 0 Refill(s) Start Date: 05/26/16 Status: Ordered ProAir HFA 90 mcg/inh inhalation aerosol 2 puffs, Inhalation, QID, as needed for wheezing, # 8.5 g, 11 Refill(s), Pharmacy: [facility] Start Date: 06/17/16 Status: Ordered Zofran 0 Refill(s) Start Date: 05/27/16 Status: Ordered Results No data available for this section Immunizations Vaccine Date Refusal Reason influenza virus vaccine, inactivated 05/26/16 Procedures No data available for this section Social History Social History Type Response Smoking Status Never smoker Assessment and Plan Extracted from: Title: Office Visit Note Author: Kosta Painter MD Date: 07/06/16 Assessment/Plan Boil this could be MRSA, Bactrim DS bid for 10d and RTC one week, call if problems Ordered: Office Visit Level 3 Est [id number]
--- OUTSIDE RECORDS SUMMARY | 2018-08-20 18:19 | XMS REPORT | Referral Summary ---
Author Author [facility] Organization [facility] Address Unknown Phone Unavailable Care Team Providers Care Manager State Name Role Phone Kosta Painter PCP Encounter VC Date(s): 02/13/17 - 02/13/17 [facility] [address], [address] [address] Discharge Diagnosis: exam Discharge Disposition: 01-Home or Self Care Attending Physician: Kosta Painter MD Vital Signs Most recent to 1 oldest [Reference Range]: Blood Pressure 118/78 mmHg [90-140/60-90 mmHg] (02/13/17 2:32 PM) Problem List Condition Effective Dates Status Health Status Informant Acute Active pain(Confirmed) Beta lactam Active resistant bacterial infection(Confirmed) 1 Methicillin Active resistant Staphylococcus aureus(Confirmed)2 (Confirmed) 03/21/16 - 12/31/16 Resolved 1Skin from Arm L collected 07/11/16 16:06:00 SCRUMMASTER 2Skin from Arm L collected 07/11/16 16:06:00 SCRUMMASTER Allergies, Adverse Reactions, Alerts Substance Reaction Severity Status amoxicillin HIVES Active Medications Colace 100 mg oral capsule 100 mg 1 caps, Oral, Daily, as needed for constipation, # 30 caps, 5 Refill(s) Start Date: 01/01/17 Status: Ordered FLUoxetine 10 mg oral capsule 10 mg 1 caps, Oral, Daily, # 30 caps, 0 Refill(s) Start Date: 01/02/17 Status: Ordered Results No data available for this section Immunizations Given and Recorded Vaccine Date Status Refusal Reason tetanus/diphth/pertuss (Tdap) adult/adol 11/23/16 Given influenza virus vaccine, inactivated 05/26/16 Given Procedures No data available for this section Social History Social History Type Response Smoking Status Never smoker Assessment and Plan Extracted from: Title: Office Visit Note Author: Kosta Painter MD Date: 02/13/17 Assessment/Plan exam continue current therapies and meds, sensible diet and exercise, Depo today , routine f/u Ordered: medroxyPROGESTERone, 150 mg, IntraMuscular, Once, First Dose: 02/13/17 16:00 :00 CDT, Stop Date: 02/13/17 16:00:00 CDT Services 3007
--- OUTSIDE RECORDS SUMMARY | 2018-08-20 18:19 | XMS REPORT | Referral Summary ---
Author Author [facility] Organization [facility] Address Unknown Phone Unavailable Care Team Providers Care Watermelon Harvesting Supervisor Name Role Phone Kosta Painter PCP Encounter VC Date(s): 10/11/16 - 10/11/16 [facility] [address], [facility] 100 [place], [place] [address] Discharge Diagnosis: Primigravida in second trimester Discharge Disposition: 01-Home or Self Care Attending Physician: Kosta Painter MD Vital Signs Most recent to 1 oldest [Reference Range]: Blood Pressure 120/60 mmHg [90-140/60-90 mmHg] (10/11/16 4:42 PM) Problem List Condition Effective Dates Status Health Status Informant Beta lactam Active resistant bacterial infection(Confirmed) 1 Methicillin Active resistant Staphylococcus aureus(Confirmed)2 (Confirmed) 03/21/16 Active 1Skin from Arm L collected 07/11/16 16:06:00 MEDICATION AID 2Skin from Arm L collected 07/11/16 16:06:00 MEDICATION AID Allergies, Adverse Reactions, Alerts Substance Reaction Severity Status amoxicillin HIVES Active Medications Multivitamins 1 tabs, Oral, Daily, 0 Refill(s) Start Date: 05/26/16 Status: Ordered ProAir HFA 90 mcg/inh inhalation aerosol 2 puffs, Inhalation, QID, as needed for wheezing, # 8.5 g, 11 Refill(s), Pharmacy: [facility] Start Date: 06/17/16 Status: Ordered Zofran 0 Refill(s) Start Date: 05/27/16 Status: Ordered Results Urinalysis Most recent to 1 oldest [Reference Range]: Leukocytes Urine Small Dipstick (10/11/16 4:25 PM) Nitrite Urine Negative Dipstick (10/11/16 4:25 PM) Urobilinogen Urine 0.2 mg/dl Dipstick (10/11/16 4:25 PM) Protein Urine Negative Dipstick (10/11/16 4:25 PM) pH Urine Dipstick 7 (10/11/16 4:25 PM) Ketones Urine Trace Dipstick (10/11/16 4:25 PM) Blood Urine Dipstick Negative (10/11/16 4:25 PM) Bilirubin Urine Negative Dipstick (10/11/16 4:25 PM) Specific [place] 1.025 Urine Dipstick (10/11/16 4:25 PM) Glucose Urine Negative Dipstick (10/11/16 4:25 PM) Urine Color Urine Yellow Dipstick (10/11/16 4:25 PM) Urine Appearance Cloudy Urine Dipstick (10/11/16 4:25 PM) UA WBC [0-4] 10-20 *ABN* (10/11/16 4:28 PM) UA RBC [0-4] 5-10 *ABN* (10/11/16 4:28 PM) Epithelial Cells 5-10 (10/11/16 4:28 PM) UA Bacteria Occasional *ABN* (10/11/16 4:28 PM) UA Hyal Cast [0-3] 1-3 (10/11/16 4:28 PM) Immunizations Given and Recorded Vaccine Date Status Refusal Reason influenza virus vaccine, inactivated 05/26/16 Given Procedures No data available for this section Social History Social History Type Response Smoking Status Never smoker Assessment and Plan Extracted from: Title: Office Visit Note Author: Kosta Painter MD Date: 10/11/16 Assessment/Plan Primigravida in second trimester routine care, RTC 2 weeks, glucola then, call if problems. Ordered: services 3003 Return to Clinic UTI in Ordered: Urinalysis Microscopic Urine Culture Referrals to Other Providers Referred by: Kosta Painter MD
--- OUTSIDE RECORDS SUMMARY | 2018-08-20 18:19 | XMS REPORT | Referral Summary ---
Author Author [facility] Organization [facility] Address Unknown Phone Unavailable Care Team Providers Care Vp Project Name Role Phone Kosta Painter PCP Encounter VC Date(s): 03/15/17 - 03/15/17 [facility] [address], [address] [address] Discharge Diagnosis: Headache Discharge Disposition: 01-Home or Self Care Attending Physician: Kosta Painter MD Admitting Physician: Kosta Painter MD Vital Signs Most recent to 1 oldest [Reference Range]: Temperature Oral 36.9 degC [35.8-37.3 degC] (03/15/17 10:59 AM) Blood Pressure 110/80 mmHg [90-140/60-90 mmHg] (03/15/17 10:59 AM) Problem List Condition Effective Dates Status Health Status Informant Acute Active pain(Confirmed) Beta lactam Active resistant bacterial infection(Confirmed) 1 Methicillin Active resistant Staphylococcus aureus(Confirmed)2 (Confirmed) 03/21/16 - 12/31/16 Resolved 1Skin from Arm L collected 07/11/16 16:06:00 ROVING WINDER 2Skin from Arm L collected 07/11/16 16:06:00 ROVING WINDER Allergies, Adverse Reactions, Alerts Substance Reaction Severity [...] Visit Note Author: Kosta Painter MD Date: 03/15/17 Assessment/Plan Headache this may be a viral illness or stress, reassured, observe, RTC one week and call any time Ordered: Office Visit Level 3 Est 14483 Return to Clinic
--- OUTSIDE RECORDS SUMMARY | 2018-08-20 18:19 | XMS REPORT | Referral Summary ---
Author Author [facility] Organization [facility] Address Unknown Phone Unavailable Care Team Providers Care Highway Commissioner Name Role Phone Kosta Painter PCP Encounter VC Date(s): 06/02/16 - 06/02/16 [facility] [address], [facility] 100 [place], [place] [address] Discharge Disposition: 01-Home or Self [...]
--- OUTSIDE RECORDS SUMMARY | 2018-08-20 18:19 | XMS REPORT | Referral Summary ---
Author Author [facility] Organization [facility] Address Unknown Phone Unavailable Care Team Providers Care Ground Control Approach Technician Name Role Phone Kosta Painter PCP Encounter VC Date(s): 06/17/16 - 06/17/16 [facility] [address], [place] [address] [place], [place] [address] Discharge Diagnosis: Primigravida in first trimester Discharge Disposition: 01-Home or Self Care Attending Physician: Kosta Painter MD Admitting Physician: Kosta Painter MD Vital Signs Most recent to 1 oldest [Reference Range]: Blood Pressure 94/60 mmHg [90-138/45-84 mmHg] (06/17/16 11:28 AM) Problem List Condition Effective Dates Status [...] Visit Note Author: Kosta Painter MD Date: 06/17/16 Assessment/Plan Primigravida in first trimester routine care, recheck 3 weeks for FHTs, see ob flow Ordered: services 3003 Return to Clinic
--- OUTSIDE RECORDS SUMMARY | 2018-08-20 18:19 | XMS REPORT | Referral Summary ---
Author Author [facility] Organization [facility] Address Unknown Phone Unavailable Care Team Providers Care Analysis Director Name Role Phone Kosta Painter PCP Encounter VC Date(s): 12/31/16 - 01/02/17 [facility] [address], [place] [address] Discharge Diagnosis: Depression Discharge Diagnosis: Spontaneous vaginal delivery Discharge Disposition: 01-Home or Self Care Attending Physician: Kosta Painter MD Admitting Physician: Kosta Painter MD Vital Signs Most recent to 1 oldest [Reference Range]: Temperature Oral 36.8 degC [35.8-37.3 degC] (01/02/17 4:15 PM) Peripheral Pulse 88 bpm Rate [60-100 bpm] (12/31/16 4:28 AM) Heart Rate Monitored 98 bpm [60-100 bpm] (01/02/17 4:15 PM) Respiratory Rate 18 br/min [14-20 br/min] (01/02/17 4:15 PM) Blood Pressure 109/65 mmHg [90-140/60-90 mmHg] (01/02/17 4:15 PM) SpO2 100 % (01/01/17 3:00 PM) Problem List Condition Effective Dates Status Health Status Informant Acute Active pain(Confirmed) Beta lactam Active resistant bacterial infection(Confirmed) 1 Methicillin Active resistant Staphylococcus aureus(Confirmed)2 (Confirmed) 03/21/16 - 12/31/16 Resolved 1Skin from Arm L collected 07/11/16 16:06:00 SENIOR CONTROLS ANALYST 2Skin from Arm L collected 07/11/16 16:06:00 SENIOR CONTROLS ANALYST Allergies, Adverse Reactions, Alerts Substance Reaction [...] Date: 01/01/17 Stop Date: 02/01/17 Status: Ordered Percocet 5/325 oral tablet 1-2 tabs, Oral, q4hr, as needed for pain, # 15 tabs, 0 Refill(s) Start Date: 01/01/17 Stop Date: 02/01/17 Status: Ordered Results Blood Gases Most recent to 1 oldest [Reference Range]: Arterial Cord Blood 7.22 PH [7.10-7.35] (12/31/16 10:06 AM) Arterial Cord Blood 66 mmHg PCO2 [5-15 mmHg] *HI* (12/31/16 10:06 AM) Arterial Cord Blood 12 mmHg PO2 [5-25 mmHg] (12/31/16 10:06 AM) Arterial Cord Blood 27 mEq/L Bicarbonate [22-26 *HI* mEq/L] (12/31/16 10:06 AM) Arterial Cord Blood -2 Base Excess (12/31/16 10:06 AM) Spec Site ACB cord gas (12/31/16 10:06 AM) Venous Cord Blood PH 7.31 [7.20-7.45] (12/31/16 10:04 AM) Venous Cord Blood 50 mmHg PCO2 [5-15 mmHg] *HI* (12/31/16 10:04 AM) Venous Cord Blood 25 mmHg PO2 [5-25 mmHg] (12/31/16 10:04 AM) Venous Cord Blood 24 mEq/L Bicarbonate [21-25 (12/31/16 10:04 AM) mEq/L] Venous Cord Blood -2 Base Excess (12/31/16 10:04 AM) Spec Site CB cord gas (12/31/16 10:04 AM) Hematology Most recent to 1 oldest [Reference Range]: WBC [4.8-10.8 15.1 10*3/uL 10*3/uL] *HI* (12/31/16 8:04 AM) RBC [4.00-5.20] 4.25 (12/31/16 8:04 AM) Hgb [12.0-16.0 12.8 gm/dL gm/dL] (12/31/16:04 AM) Hct [37.0-47.0 %] 37.5 % (12/31/16:04 AM) MCV [82.0-99.0 fL] 88.2 fL (12/31/16: AM) MCH [27.0-32.0 pg] 30.1 pg (12/31/16:04 AM) MCHC [32.0-36.0 34.1 gm/dL gm/dL] (12/31/16 8:04 AM) RDW [11.5-14.5 %] 12.9 % (12/31/16:04 AM) Platelet [150-400 159 10*3/uL 10*3/uL] (12/31/16 8:04 AM) MPV [9.4-12.4 fL] 10.5 fL (12/31/16 8:04 AM) Immature 0.5 % Granulocytes (12/31/16:04 AM) [0.0-1.0 %] Neutrophils [51-75 90 % %] *HI* (12/31/16:04 AM) Lymphocytes [20-46 8 % %] *LOW* (12/31/16:04 AM) Monocytes [4-11 %] 2 % *LOW* (12/31/16 8:04 AM) Eosinophils [0-4 %] 0 % (12/31/16:04 AM) Basophils [0-2 %] 0 % (12/31/16 8:04 AM) Neutro Absolute 13.52 [1.90-7.00] *HI* (12/31/16 8:04 AM) Lymph Absolute 1.16 [0.80-3.30] (12/31/16 8:04 AM) [place] Absolute 0.30 [0.30-1.00] (12/31/16 8:04 AM) Eos Absolute 0.01 [0.00-0.50] (12/31/16 8:04 AM) Baso Absolute 0.01 [0.00-0.20] (12/31/16 8:04 AM) Nucleated RBC 0.0 /100 WBC Automated [0 /100 (12/31/16 8:04 AM) WBC] Coagulation Most recent to 1 oldest [Reference Range]: Col/ADP [71.0-118.0 77.0 seconds 1 seconds] (12/31/16 5:13 PM) Col/EPI [94.0-193.0 94.0 seconds seconds] (12/31/16 5:13 PM) 1Result Comment: Col/EPI normal and Col/ADP normal - Platelet function is normal. If patient history/physical examinations give strong indication of a bleeding disorder repeat testing for confirmation. If still normal, consider testing for factor deficiencies. Col/EPI abnormal and Col/ADP normal - This pattern is indicative of drug induced platelet dysfunction most commonly seen after aspirin ingestions. Col/EPI abnormal and Col/ADP abnormal - Platelet function is abnormal and may indicate the following: Anemia (hematocrit <35) Thrombocytopenia (platelet count <150) A significant platelet function defect other than aspirin. Once anemia and thrombocytopenia have been excluded, further evaluation to exclude von Willebrand disease and inherited/acquired platelet dysfunction such as renal failure storage pool disease, release defect, Calderon-Soulier disease, and Glanzmann thromboasthenia should be considered. Long-term aspirin therapy may modestly prolong the Col/ADP. Blood Bank Results Most recent to 1 oldest [Reference Range]: ABO/Rh B POS (12/31/16 8:04 AM) Antibody Screen Tube NEG (12/31/16 8:04 AM) Immunizations Given and Recorded Vaccine Date Status Refusal Reason tetanus/diphth/pertuss (Tdap) adult/adol 11/23/16 Given influenza virus vaccine, inactivated 05/26/16 Given Procedures No data available for this section Social History Social History Type Response Smoking Status Never smoker Assessment and Plan No data available for this section
--- OUTSIDE RECORDS SUMMARY | 2018-08-20 18:19 | XMS REPORT | Referral Summary ---
Author Author [facility] Organization [facility] Address Unknown Phone Unavailable Care Team Providers Care Manager Of Internal Name Role Phone Kosta Painter PCP Encounter VC Date(s): 07/08/17 - 07/09/17 [facility] [address] [place] [address] Discharge Diagnosis: Abdominal cramps Discharge Disposition: 01-Home or Self Care Attending Physician: Carroll Painting MD Admitting Physician: Carroll Painting MD Referring Physician: Self Referred, X Vital Signs Most recent to 1 oldest [Reference Range]: Temperature Oral 36.8 degC [35.8-37.3 degC] (07/08/17 11:20 PM) Peripheral Pulse 74 bpm Rate [60-100 bpm] (07/08/17 11:20 PM) Respiratory Rate 16 br/min [14-20 br/min] (07/08/17 11:20 PM) Blood Pressure 100/63 mmHg [90-140/60-90 mmHg] (07/08/17 11:20 PM) SpO2 100 % (07/08/17 11:20 PM) Problem List Condition Effective Dates Status Health Status Informant Acute Active pain(Confirmed) Beta lactam Active resistant bacterial infection(Confirmed) 1 Methicillin Active resistant Staphylococcus aureus(Confirmed)2 (Confirmed) 03/21/16 - 12/31/16 Resolved 1Skin from Arm L collected 07/11/16 16:06:00 RACK MAKER 2Skin from Arm L collected 07/11/16 16:06:00 RACK MAKER Allergies, Adverse Reactions, Alerts Substance Reaction Severity Status amoxicillin HIVES Active Medications Colace 100 mg oral capsule 100 mg 1 caps, Oral, Daily, as needed for constipation, # 30 caps, 5 Refill(s) Start Date: 01/01/17 Status: Ordered FLUoxetine 10 mg oral capsule 10 mg 1 caps, Oral, Daily, # 30 caps, 2 Refill(s), Pharmacy: [id number], 1 caps Oral Daily Start Date: 05/10/17 Status: Ordered Levsin 0.125 mg oral tablet 0.125 mg 1 tabs, Oral, QID, as needed for spasm, # 40 tabs, 0 Refill(s) Start Date: 07/09/17 Status: Ordered Zofran 4 mg oral tablet 4 mg 1 tabs, Oral, q4hr, Nausea or Vomiting | as needed for nausea/vomiting, # 10 tabs, 0 Refill(s) Start Date: 07/09/17 Status: Ordered Results Hematology Most recent to 1 oldest [Reference Range]: WBC [4.8-10.8 6.5 10*3/uL 10*3/uL] (07/09/17 12:33 AM) RBC [4.00-5.20] 4.36 (07/09/17 12:33 AM) Hgb [12.0-16.0 12.8 gm/dL gm/dL] (07/09/17 12:33 AM) Hct [37.0-47.0 %] 38.2 % (07/09/17 12:33 AM) MCV [82.0-99.0 fL] 87.6 fL (07/09/17 12:33 AM) MCH [27.0-32.0 pg] 29.4 pg (07/09/17 12:33 AM) MCHC [32.0-36.0 33.5 gm/dL gm/dL] (07/09/17 12:33 AM) RDW [11.5-14.5 %] 12.0 % (07/09/17 12:33 AM) Platelet [150-400 276 10*3/uL 10*3/uL] (07/09/17 12:33 AM) MPV [9.4-12.4 fL] 9.8 fL (07/09/17 12:33 AM) Immature 0.2 % Granulocytes (07/09/1733 AM) [0.0-1.0 %] Neutrophils [51-75 44 % %] *LOW* (07/09/17:33 AM) Lymphocytes [20-46 46 % %] (07/09/17 AM) Monocytes [4-11 %] 5 % (07/09/17 AM) Eosinophils [0-4 %] 4 % (07/09/17 AM) Basophils [0-2 %] 0 % (07/09/17 AM) Neutro Absolute 2.87 [1.90-7.00] (07/09/17 AM) Lymph Absolute 3.01 [0.80-3.30] (07/09/17 AM) Mcpherson Absolute 0.33 [0.30-1.00] (07/09/17 AM) Eos Absolute 0.28 [0.00-0.50] (07/09/17 AM) Baso Absolute 0.02 [0.00-0.20] (07/09/17 AM) Nucleated RBC 0.0 /100 WBC Automated [0 /100 (07/09/17 AM) WBC] Chemistry Most recent to 1 oldest [Reference Range]: Sodium Lvl [136-144 137 mEq/L mEq/L] (07/09/17 AM) Potassium Lvl 3.9 mEq/L [3.6-5.1 mEq/L] (07/09/17 AM) Chloride [99-109 107 mEq/L mEq/L] (07/09/17 AM) CO2 [22-32 mEq/L] 25 mEq/L (07/09/17 AM) AGAP [3-20 mEq/L] 5 mEq/L (07/09/17 AM) BUN [4-20 mg/dL] 9 mg/dL (07/09/17 AM) Glucose Lvl [70-100 94 mg/dL mg/dL] (07/09/17 AM) Creatinine Lvl 0.66 mg/dL [0.44-1.03 mg/dL] (07/09/17 AM) eGFR [>60 mL/min] >60 mL/min 1 (07/09/17 AM) Calcium Lvl 9.1 mg/dL [8.6-10.0 mg/dL] (11/19/17 12:33 AM) Albumin Lvl [3.5-4.8 3.5 gm/dL gm/dL] (07/09/17 12:33 AM) Total Protein 6.4 gm/dL [6.1-7.9 gm/dL] (07/09/17 12:33 AM) Globulin [1.9-4.3 2.9 gm/dL gm/dL] (07/09/17 12:33 AM) ALT [14-54 U/L] 15 U/L (07/09/17 12:33 AM) AST [15-41 U/L] 19 U/L (07/09/17 12:33 AM) Alk Phos [26-104 47 U/L U/L] (07/09/17 12:33 AM) Bili Total [0.2-1.2 0.5 mg/dL 2 mg/dL] (07/09/17 12:33 AM) Lipase Lvl [8-48 36 U/L U/L] (07/09/17 12:33 AM) Screen, Negative Urine NPT (07/08/17 11:34 PM) 1Result Comment: Multiply eGFR results by 1.21 for race. 2Result Comment: Naproxen, specifically the metabolite O-desmethylnaproxen, may cause spurious elevation in Total Bilirubin levels. Urinalysis Most recent to 1 oldest [Reference Range]: UA Color Yellow (07/08/17 11:00 PM) UA Appear Cloudy *ABN* (07/08/17 11:00 PM) UA pH [5.0-8.0] 7.0 (07/08/17 11:00 PM) UA Leuk Est Trace [Negative] *ABN* (07/08/17 11:00 PM) UA Nitrite Negative [Negative] (07/08/17 11:00 PM) UA Protein Negative [Negative] (07/08/17 11:00 PM) UA Glucose Negative [Negative] (07/08/17 11:00 PM) UA Ketones Negative [Negative] (07/08/17 11:00 PM) UA Urobilinogen Negative [<1.0] (07/08/17 11:00 PM) UA Bili [Negative] Negative (07/08/17 11:00 PM) UA Blood [Negative] Negative (07/08/17 11:00 PM) UA Spec Grav 1.020 [1.003-1.030] (07/08/17 11:00 PM) Type Catheter (07/08/17 11:00 PM) UA WBC [0-4] 0-2 (07/08/17 11:00 PM) UA RBC [0-2] 0-2 (07/08/17 11:00 PM) Epithelial Cells 2-5 (07/08/17 11:00 PM) UA Bacteria Rare (07/08/17 11:00 PM) Crystals Amorphous (07/08/17 11:00 PM) UA Mucous Present (07/08/17 11:00 PM) Immunizations Given and Recorded Vaccine Date Status Refusal Reason tetanus/diphth/pertuss (Tdap) adult/adol 11/23/16 Given influenza virus vaccine, inactivated 05/26/16 Given Procedures No data available for this section Social History Social History Type Response Smoking Status Never smoker entered on: 05/27/16 Assessment and Plan No data available for this section"
--- OUTSIDE RECORDS SUMMARY | 2018-08-20 18:20 | XMS REPORT | Referral Summary ---
Author Author [facility] Organization [facility] Address Unknown Phone Unavailable Care Team Providers Care Jig Mill Operator Name Role Phone Kosta Painter PCP Encounter VC [facility] [id number] Date(s): 07/13/16 - 07/13/16 [facility] [address], [facility] [address] [place], [place] [address] Discharge Diagnosis: Abscess Discharge Disposition: 01-Home or Self Care Attending [...] Visit Note Author: Kosta Painter MD Date: 07/13/16 Assessment/Plan Abscess improving, cultures pending, call if problems, RTC next week for ob check Ordered: Office Visit Level 3 Est [id number]
--- OUTSIDE RECORDS SUMMARY | 2018-08-20 18:20 | XMS REPORT ---
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 Active 42600778 Problem Abdominal pain, right upper quadrant R10.11 Active 487790320 Problem Mastodynia N64.4 Active 60839124 Problem Generalized anxiety disorder F41.1 Active 13526383 Problem Oral contraceptive pill surveillance Z30.41 Active 593836210 Problem Abdominal pain, unspecified abdominal location R10.9 Active 29280118 ALLERGIES Substance Reaction Event Type Date Status Amoxicillin Unknown Drug Allergy May, Active Lemon hives Non Drug Allergy May, Active ENCOUNTERS Encounter Location Date Diagnosis [facility] [id number], [place] [address] May, 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 [facility] [address] [id number], [place] [address] May, Genital ulcer, female N76.6 [facility] [address] [id number], [place] [address] May, Pelvic pain R10.2 [facility] [id number], [place] [address] Mar, Urticaria L50.9 and Insect bite, subsequent encounter W57.XXXD [place] [address] [place] [address] [id number] [id number] 09 Apr, 2016 control counseling Z30.9 ; Encounter for Depo-Provera contraception Z30.42 and Generalized anxiety disorder F41.[address] [id number] [id number] 08 Apr, 2016 Major depressive disorder, recurrent, moderate F33.1 and Impulse control disorder F63.[address] [id number][place] [phone] Apr, Oral contraceptive prescribed Z30.011 ; Generalized anxiety disorder F41.1 and Major depressive disorder with single episode, remission status unspecified F32.[address] [id number][place] [id number] Apr, Major depressive disorder, recurrent, moderate F33.1 and Impulse control disorder F63.[address] [id number][place] [id number] Mar, [facility] [id number] [place] [phone] Mar, [place] [address] [place] [id number] [place] [address] Sep, [place] [address] [place] [address] Sep, Irregular menses N92.6 and Oral contraceptive pill surveillance Z30.41 [place] [address] [place] [id number] [place] [address] Sep, 2016 Gastro-esophageal reflux disease without esophagitis K21.9 ; Generalized anxiety disorder F41.1 ; Diarrhea R19.7 ; Hematochezia K92.1 ; Menorrhagia with irregular cycle N92.1 and Abdominal pain, unspecified abdominal location R10.9 [place] [address] [place] [id number] [place] [address] Jul, [facility] [address] [address] 07 Jul, 2015 Oral contraceptive pill surveillance Z30.41 and Abdominal pain, unspecified abdominal location R10.9 [facility] [address] [place] [id number] [place] [address] 07 Jul, 2015 Encounter for well child visit with abnormal findings Z00.121 ; Exercise counseling Z71.89 ; Encounter for immunization Z23 ; Dietary counseling Z71.3 ; High risk medication use Z79.899 and Generalized anxiety disorder F41.1 [facility] [address] [place] [id number] [place] [address] 14 Apr, 2015 [place] [address] [place] [id number] [place] [address] 15 Jan, 2015 Constipation 564.00 ; GERD (gastroesophageal reflux disease ) 530.81 ; Depression 311 and Anxiety 300.00 [place] [address] [place] [id number] [place] [address] Nov, [facility] [address] [place] [id number] [place] [address] Nov, [place] [address] [place] [id number] [place] [address] Aug, [place] [id number] [place] [phone] Aug, [place] [id number] [place] [phone] Aug, [facility] [address] [place] [id number] [place] [address] Aug, [place] [id number] [place] [phone] Aug, [facility] [address] [place] [id number] [place] [address] Aug, [facility] [address] [address] Feb, [facility] [address] [facility] [id number] [id number] Feb, [facility] [address] [facility] [id number] [address] Jan, [facility] [address] [facility] [id number] [address] Jan, [facility] [address] [facility] [id number] [phone] December, [facility] [address] [facility] [id number] [address] December, IMMUNIZATIONS No Known Immunizations SOCIAL HISTORY Never Assessed REASON FOR VISIT Lab f/u- Here for STD test results. Kassidy Hatch MA PLAN OF CARE Activity Details Follow Up 2 Weeks, prn Reason: VITAL SIGNS Height 66 in 2018-06-14 Weight 167 lbs 2018-06-14 Temperature 97.8 degrees Fahrenheit 2018-06-14 Heart Rate 78 bpm 2018-06-14 Respiratory Rate 18 2018-06-14 Oximetry 98 % 2018-06-14 BMI 26.95 kg/m2 2018-06-14 Blood pressure systolic 90 mmHg 2018-06-14 Blood pressure diastolic 62 mmHg 2018-06-14 MEDICATIONS Medication Instructions Dosage Frequency Start Date End Date Duration Status Doxycycline Hyclate 100 mg Orally twice a day 1 capsule 12h May, May, Active Acyclovir 400 mg Orally 3 times a day 1 tablet 8h May, 10 day(s ) Active RESULTS No Results PROCEDURES No Known procedures INSTRUCTIONS MEDICATIONS ADMINISTERED No Known Medications MEDICAL (GENERAL) HISTORY Type Description Date Medical History indigestion problems Medical History menstrual problems Medical History anxiety Surgical History oral surgery Hospitalization History attempting to commit suicide 2013
--- OUTSIDE RECORDS SUMMARY | 2018-08-20 18:20 | XMS REPORT | Referral Summary ---
Author Author [facility] Organization [facility] Address Unknown Phone Unavailable Care Team Providers Care Analyst Business Analysis Name Role Phone Kosta Painter PCP Encounter [facility] Date(s): 09/13/16 - 09/13/16 [facility] [address], [facility] [address] [place], [place] [address] Discharge Diagnosis: Primigravida in second trimester Discharge Disposition: 01-Home or Self Care Attending Physician: Kosta Painter MD Admitting Physician: Kosta Painter MD Vital Signs Most recent to 1 oldest [Reference Range]: Blood Pressure 90/60 mmHg [90-138/45-84 mmHg] (09/13/16 4:27 PM) Problem List Condition Effective Dates Status Health Status Informant Beta lactam Active resistant bacterial infection(Confirmed) 1 Methicillin Active resistant Staphylococcus aureus(Confirmed)2 (Confirmed) 03/21/16 Active 1Skin from Arm L collected 07/11/16 16:06:00 GEOTECHNICAL ENGINEER 2Skin from Arm L collected 07/11/16 16:06:00 GEOTECHNICAL ENGINEER Allergies, Adverse Reactions, Alerts Substance Reaction Severity Status amoxicillin HIVES Active Medications Multivitamins 1 tabs, Oral, Daily, 0 Refill(s) Start Date: 05/26/16 Status: Ordered ProAir HFA 90 mcg/inh inhalation aerosol 2 puffs, Inhalation, QID, as needed for wheezing, # 8.5 g, 11 Refill(s), Pharmacy: [facility] Start Date: 06/17/16 Status: Ordered Zofran [...] Visit Note Author: Kosta Painter MD Date: 09/13/16 Assessment/Plan Primigravida in second trimester routine care, RTC 4 weeks, increase her intake, call if problems Ordered: services 3003 Return to Clinic Referrals to Other Providers Referred by: Kosta Painter MD
--- OUTSIDE RECORDS SUMMARY | 2018-08-20 18:20 | XMS REPORT ---
Author Author HERNAN HUTCHISON Organization [facility] Address [address] [place] [address] Care Team Providers Care Dragline Engineer Name Role Phone HERNAN HUTCHISON Unavailable PROBLEMS Type Condition ICD9-CM Code [id number] Code Onset Dates Condition Status SNOMED Code Problem Major depressive disorder, recurrent, moderate F33.1 Active 291393882 Problem Excessive or frequent menstruation 626.2 Active 363698685 Problem Dysuria 788.1 Active 46305809 Problem Mastodynia N64.4 Active 52103065 Problem Abdominal pain, right upper quadrant R10.11 Active 748394867 Problem Generalized anxiety disorder F41.1 Active 08257702 Problem Impulse control disorder F63.9 Active 33360133 Problem Oral contraceptive pill surveillance Z30.41 Active 554296039 Problem Abdominal pain, unspecified abdominal location R10.9 Active 77657861 ALLERGIES Substance Reaction Event Type Date Status Amoxicillin Unknown Drug Allergy Mar, Active ENCOUNTERS Encounter Location Date Diagnosis [facility] [id number] [address] Mar, Urticaria L50.9 and Insect bite, subsequent encounter W57.XXXD [facility] [address] [id number] Apr, control counseling Z30.9 ; Encounter for Depo-Provera contraception Z30.42 and Generalized anxiety disorder F41.1 [facility] [id number] [place] [id number] Apr, Major depressive disorder, recurrent, moderate F33.1 and Impulse control disorder F63.9 [facility] [id number] [place] [id number] Apr, Oral contraceptive prescribed Z30.011 ; Generalized anxiety disorder F41.1 and Major depressive disorder with single episode, remission status unspecified F32.9 [facility] [address] [place] [address] [id number] [id number] Apr, Major depressive disorder, recurrent, moderate F33.1 and Impulse control disorder F63.9 [facility] [address] [place] [address] [id number] [place] [phone] Mar, [facility] [address] [id number] [id number] Mar, [place] [address] [place] [address] Sep, [place] [address] [id number] [place] [address] Sep, Irregular menses N92.6 and Oral contraceptive pill surveillance Z30.41 [place] [id number] [place] [address]85- 69[address] 18 Sep, 2015 Gastro-esophageal reflux disease without esophagitis K21.9 ; Generalized anxiety disorder F41.1 ; Diarrhea R19.7 ; Hematochezia K92.1 ; Menorrhagia with irregular cycle N92.1 and Abdominal pain, unspecified abdominal location R10.9 [place] [address] [place] [address] Jul, [place] [id number] [place] [address] 21647[address] 9267 Jul, Oral contraceptive pill surveillance Z30.41 and Abdominal pain, unspecified abdominal location R10.9 [place] [id number] [place] [address]64- 6[address] Jul, Encounter for well child visit with abnormal findings Z00.121 ; Exercise counseling Z71.89 ; Encounter for immunization Z23 ; Dietary counseling Z71.3 ; High risk medication use Z79.899 and Generalized anxiety disorder F41.1 [place] [id number] [place] [address]2585- 3476 Apr, [facility] [address] [address] Jan, Constipation 564.00 ; GERD (gastroesophageal reflux disease ) 530.81 ; Depression 311 and Anxiety 300.00 [facility] [address] [address] Nov, [facility] [id number] [place] [address]5877[address] 9236 Nov, [facility] [address] [address] Aug, [place] [id number] [place] [phone] Aug, [place] [id number] [place] [address] [phone] Aug, [facility] [address] [place] [address] Aug, [facility] [address] [place], [place] [id number] [place] [phone] Aug, [facility] [address] [address] Aug, [facility] [address] [address] Feb, [facility] [address] [place] [address] [place] [address] [phone] Feb, [facility] [address] [address] Jan, [facility] [address] [place] [address] 94594- 2546 Jan, [address]65100[place] [phone] December, [facility] [id number] [address] December, IMMUNIZATIONS No Known Immunizations SOCIAL HISTORY Never Assessed REASON FOR VISIT Allergic reaction, possible. Went to the ER last night for hives Giovanni LEE PLAN OF CARE Activity Details Follow Up 2 Weeks, prn Reason: VITAL SIGNS Height 66 in 2018-04-03 Temperature 98.1 degrees Fahrenheit 2018-04-03 Heart Rate 80 bpm 2018-04-03 Respiratory Rate 18 2018-04-03 Blood pressure systolic 126 mmHg 2018-04-03 Blood pressure diastolic 70 mmHg 2018-04-03 MEDICATIONS Medication Instructions Dosage Frequency Start Date End Date Duration Status Triamcinolone Acetonide 0.5 % Externally Twice a day 1 application to affected area 12h 14 Mar, 2018 14 days Active PredniSONE 10 MG Day 1, 6 tabs, day 2, 5 tabs, day3, 4 tabs, day 4, 3 tabs , day5, 2 tabs, day 6 1 tab Active RESULTS No Results PROCEDURES No Known procedures INSTRUCTIONS MEDICATIONS ADMINISTERED No Known Medications MEDICAL (GENERAL) HISTORY Type Description Date Medical History indigestion problems Medical History menstrual problems Surgical History oral surgery Hospitalization History attempting to commit suicide 2013
--- OUTSIDE RECORDS SUMMARY | 2018-08-20 18:20 | XMS REPORT | Referral Summary ---
Author Author [facility] Leo [facility], [facility] Organization [facility] Address Unknown Phone Unavailable Care Team Providers Care Blowing Engineer Name Role Phone Kosta Painter PCP Encounter [facility] [id number] Date(s): 05/31/16 - 05/31/16 [facility] Angelo [facility], Family Medicine [address], [facility] [address] [place], [place] [address] Discharge Disposition: 01-Home or Self Care [...]
--- OUTSIDE RECORDS SUMMARY | 2018-08-20 18:20 | XMS REPORT | Referral Summary ---
Author Author [facility] Angelo [facility], Family Medicine Organization [facility] Address Unknown Phone Unavailable Care Team Providers Care Group Art Supervisor Name Role Phone Kosta Painter PCP Encounter [facility] Date(s): 12/20/16 - 12/20/16 [facility] Angelo [facility], Family Medicine [address], [address] [email or web address] Discharge Diagnosis: Primigravida in third trimester Discharge Disposition: 01-Home or Self Care Attending Physician: Kosta Painter MD Admitting Physician: Kosta Painter MD Vital Signs Most recent to 1 oldest [Reference Range]: Blood Pressure 110/76 mmHg [90-140/60-90 mmHg] (12/20/16 4:03 PM) Problem List Condition Effective Dates Status Health Status Informant Beta lactam Active resistant bacterial infection(Confirmed) 1 Methicillin Active resistant Staphylococcus aureus(Confirmed)2 (Confirmed) 03/21/16 Active 1Skin from Arm L collected 07/11/16 16:06:00 CASHIER CHECKER 2Skin from Arm L collected 07/11/16 16:06:00 CASHIER CHECKER Allergies, Adverse Reactions, Alerts Substance Reaction Severity Status amoxicillin HIVES Active Medications ferrous sulfate Oral, 0 Refill(s) Start Date: 11/04/16 Status: Ordered FLUoxetine Oral, 0 Refill(s) Start Date: 11/04/16 Status: Ordered Multivitamins 1 tabs, Oral, Daily, 0 Refill(s) Start Date: 05/26/16 Status: Ordered ProAir HFA 90 mcg/inh inhalation aerosol 2 puffs, Inhalation, QID, as needed for wheezing, # 8.5 g, 11 Refill(s), Pharmacy: [facility] Start Date: 06/17/16 Status: Ordered Results Urinalysis Most recent to 1 oldest [Reference Range]: UA WBC [0-4] 2-4 (12/20/16 4:20 PM) UA RBC [0-4] 0-4 (12/20/16 4:20 PM) Epithelial Cells 2-5 (12/20/16 4:20 PM) UA Bacteria Rare (12/20/16 4:20 PM) UA Hyal Cast [0-3] 1-3 (12/20/16 4:20 PM) Immunizations Given and Recorded Vaccine Date Status Refusal Reason tetanus/diphth/pertuss (Tdap) adult/adol 11/23/16 Given influenza virus vaccine, inactivated 05/26/16 Given Procedures No data available for this section Social History Social History Type Response Smoking Status Never smoker Assessment and Plan Extracted from: Title: Office Visit Note Author: Kosta Painter MD Date: 12/20/16 Assessment/Plan Abnormal urine Ordered: Urinalysis Microscopic Urine Dipstick POC Primigravida in third trimester routine care, check GBS, one week, call if problems Ordered: Group B Strep by PCR services 3003 Return to Clinic
--- OUTSIDE RECORDS SUMMARY | 2018-08-20 18:20 | XMS REPORT | Referral Summary ---
Author Author [facility] Angelo [facility], Family Medicine Organization [facility] Gusman [facility], [facility] Address Unknown Phone Unavailable Care Team Providers Care Senior Informatica Developer Name Role Phone Kosta Painter PCP Encounter [facility] Date(s): 07/18/16 - 07/18/16 [facility] Angelo N [facility], Family Medicine [address], [facility] [address] [place], [place] [address] Discharge Diagnosis: Primigravida in second trimester Discharge Disposition: 01-Home or Self Care Attending Physician: Kosta Painter MD Admitting Physician: Kosta Painter MD Vital Signs Most recent to 1 oldest [Reference Range]: Blood Pressure 98/60 mmHg [90-138/45-84 mmHg] (07/18/16 3:55 PM) Problem List Condition Effective Dates Status Health Status Informant Beta lactam Active resistant bacterial infection(Confirmed) 1 Methicillin Active resistant Staphylococcus aureus(Confirmed)2 (Confirmed) 03/21/16 Active 1Skin from Arm L collected 07/11/16 16:06:00 PHOTOGRAPHIC PRINTER 2Skin from Arm L collected 07/11/16 16:06:00 PHOTOGRAPHIC PRINTER Allergies, Adverse Reactions, Alerts Substance Reaction Severity Status amoxicillin HIVES Active Medications Bactroban 2% topical ointment 1 haile, Topical, BID, apply a thin film to prevent recurrance, X 5 days, # 22 g, 0 Refill(s), Pharmacy: [facility] Start Date: 07/18/16 Stop Date: 07/23/16 Status: Ordered clindamycin 300 mg oral capsule [...] Visit Note Author: Kosta Painter MD Date: 07/18/16 Assessment/Plan Hematuria Ordered: Urine Culture Primigravida in second trimester routine care, RTC 4 weeks for visit and complete sono, see ob flow Ordered: services 3003 Return to Clinic US Complete w/ Detail
--- OUTSIDE RECORDS SUMMARY | 2018-08-20 18:20 | XMS REPORT ---
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 Active 66226075 Problem Abdominal pain, right upper quadrant R10.11 Active 777415001 Problem Mastodynia N64.4 Active 55390847 Problem Generalized anxiety disorder F41.1 Active 31419978 Problem Oral contraceptive pill surveillance Z30.41 Active 517665118 Problem Abdominal pain, unspecified abdominal location R10.9 Active 31382166 ALLERGIES Substance Reaction Event Type Date Status Amoxicillin Unknown Drug Allergy May, Active Lemon hives Non Drug Allergy May, Active ENCOUNTERS Encounter Location Date Diagnosis [facility] [id number] [address] May, 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 [facility] [address] [id number], [place] [address] May, Genital ulcer, female N76.6 [facility] [address] [id number] [address] May, Pelvic pain R10.2 [facility] [id number], [place] [address] Mar, Urticaria L50.9 and Insect bite, subsequent encounter W57.XXXD [place] [address] [place] [address] [id number] [id number] 09 Apr, 2016 control counseling Z30.9 ; Encounter for Depo-Provera contraception Z30.42 and Generalized anxiety disorder F41.[address] [id number] [id number] 08 Apr, 2016 Major depressive disorder, recurrent, moderate F33.1 and Impulse control disorder F63.[address] [id number][place] [id number] Apr, Oral contraceptive prescribed Z30.011 ; Generalized anxiety disorder F41.1 and Major depressive disorder with single episode, remission status unspecified F32.[address] [id number][place] [phone] Apr, Major depressive disorder, recurrent, moderate F33.1 and Impulse control disorder F63.[address] [id number] [id number] Mar, [facility] [id number] [place] [address] [id number] Mar, [place] [place] [id number] [place] [address]24- 28[address] Sep, [place] [address] [place] [address]3841- 0217 Sep, Irregular menses N92.6 and Oral contraceptive pill surveillance Z30.41 [place] [id number] [place] [address] 19239- 9383 Sep, 2016 Gastro-esophageal reflux disease without esophagitis K21.9 ; Generalized anxiety disorder F41.1 ; Diarrhea R19.7 ; Hematochezia K92.1 ; Menorrhagia with irregular cycle N92.1 and Abdominal pain, unspecified abdominal location R10.9 [place] [id number] [place] [address]5639- [address] Jul, [facility] [address]65[address], [place] [address] 07 Jul, 2015 Oral contraceptive pill surveillance Z30.41 and Abdominal pain, unspecified abdominal location R10.9 [facility] [id number] [place] [address] 28326- 79[address] 07 Jul, 2015 Encounter for well child visit with abnormal findings Z00.121 ; Exercise counseling Z71.89 ; Encounter for immunization Z23 ; Dietary counseling Z71.3 ; High risk medication use Z79.899 and Generalized anxiety disorder F41.1 [facility] [id number] [place] [address] 19903- 3133 14 Apr, 2015 [place] [place] [id number] [place] [address]16- 0319 15 Jan, 2015 Constipation 564.00 ; GERD (gastroesophageal reflux disease ) 530.81 ; Depression 311 and Anxiety 300.00 [place] [id number] [place] [address] 50350- 388[address] Nov, [facility] [id number] [place] [address] 62492- 2640 Nov, [place] [id number] [place] [address] 10552- 3615 Aug, [address] [place] [id number] [place] [address] [phone] Aug, [address] [place] [id number] [place] [address] [phone] Aug, [facility] [id number] [place] [address] 29862- 8[address] Aug, [address] [place] [id number] [place] [address] [phone] Aug, [facility] [id number] [place] [address] 72020- 5757 Aug, [facility] [address] [address] Feb, [facility] [address] [facility] [id number] [phone] Feb, [facility] [address] [facility] [id number], [place] [address] Jan, [facility] [address] [facility] [id number], [place] [address] Jan, [facility] [address] [facility] [id number] [phone] December, [facility] [address] [facility] [id number], [place] [address] December, IMMUNIZATIONS No Known Immunizations SOCIAL HISTORY Never Assessed REASON FOR VISIT Went to the ER last night, dysuria for one weeek. States she was given several injections in the ER. Hx of intermittant abdominal pain over the past year- JESUS Valentin PLAN OF CARE Activity Details Follow Up prn Reason: VITAL SIGNS Height 66 in 2018-06-06 Weight 165.9 lbs 2018-06-06 Temperature 97.7 degrees Fahrenheit 2018-06-06 Heart Rate 68 bpm 2018-06-06 Respiratory Rate 20 2018-06-06 BMI 26.77 kg/m2 2018-06-06 Blood pressure systolic 104 mmHg 2018-06-06 Blood pressure diastolic 66 mmHg 2018-06-06 MEDICATIONS Medication Instructions Dosage Frequency Start Date End Date Duration Status Ibuprofen 800 MG Orally Three times a day with food 1 tablet with food or milk as needed May, May, 5 days Active Doxycycline Hyclate 100 mg Orally twice a day 1 capsule 12h May, May, Active Ketorolac Tromethamine 10 MG Orally every 6 hrs 1 tablet with food or milk as needed 6h May, 5 day(s) Active RESULTS No Results PROCEDURES No Known procedures INSTRUCTIONS MEDICATIONS ADMINISTERED No Known Medications MEDICAL (GENERAL) HISTORY Type Description Date Medical History indigestion problems Medical History menstrual problems Medical History anxiety Surgical History oral surgery Hospitalization History attempting to commit suicide 2013
--- OUTSIDE RECORDS SUMMARY | 2018-08-20 18:20 | XMS REPORT | Referral Summary ---
Author Author [facility] Angelo N [facility], Family Medicine Organization [facility] Gusman N [facility], Family Medicine Address Unknown Phone Unavailable Care Team Providers Care Lead Laying And Gluing Machine Operator Name Role Phone Kosta Painter PCP Encounter [facility] Date(s): 06/30/16 - 06/30/16 [facility] Angelo N [facility], Family Medicine [address], [facility] [address] [place], [place] [address] Discharge Diagnosis: Bee sting Discharge Disposition: 01-Home or Self Care Attending Physician: Kosta Painter MD Vital Signs Most recent to 1 oldest [Reference Range]: Blood Pressure 100/70 mmHg [90-138/45-84 mmHg] (06/30/16 11:04 AM) Problem List Condition Effective Dates Status Health Status Informant (Confirmed) 03/21/16 Active Allergies, Adverse Reactions, Alerts Substance Reaction Severity Status amoxicillin HIVES Active Medications Multivitamins 1 tabs, Oral, Daily, 0 Refill(s) Start Date: 05/26/16 Status: Ordered ProAir HFA 90 mcg/inh inhalation aerosol 2 puffs, Inhalation, QID, as needed for wheezing, # 8.5 g, 11 Refill(s), Pharmacy: [facility] Start Date: 06/17/16 [...] Visit Note Author: Kosta Painter MD Date: 06/30/16 Assessment/Plan Bee sting reassured, observe, she may take Benadryl prn and apply hydrocortisone cream if needed, routine f/u for ob care, I couldn't hear the FHTs with the Doppler today Ordered: Office Visit Level 3 Est 83040
--- OUTSIDE RECORDS SUMMARY | 2018-08-20 18:21 | XMS REPORT ---
Author Author GRZEGORZ CRABTREE Organization [employer] Address Unknown Phone Unavailable Care Team Providers Care Director Export Name Role Phone GRZEGORZ CRABTREE CP Unavailable Allergies, Adverse Reactions, Alerts Substance Reaction Event Type Amoxicillin Info Not Available Drug Allergy Problems Problem Type Condition Code Onset Dates Condition Status Assessment Major depressive disorder with single episode, remission status unspecified F32.9 Active Problem Abdominal pain, right upper quadrant R10.11 Active Problem Oral contraceptive pill surveillance Z30.41 Active Problem Mastodynia N64.4 Active Assessment Oral contraceptive prescribed Z30.011 Active Assessment Generalized anxiety disorder F41.1 Active Problem Abdominal pain, unspecified abdominal location R10.9 Active Problem Generalized anxiety disorder F41.1 Active Medications Medication Code System Code Instructions Start Date End Date Status Dosage Prozac [facility] [address]-04 10 MG Orally Once a day Apr 21, 2016 1 capsule in the morning Sprintec 28 [facility] [address]-00 0.25-35 MG-MCG Orally Once a day Apr 21, 2016 1 tablet Procedures Procedure Coding System Code Date Office Visit, Est Pt., Level 3 CPT-4 30290 Apr 21, 2016 Vital Signs Date/Time: Apr 21, 2016 Cardiac Monitoring Heart Rate 88 bpm Weight 158 lbs Height 66 in Ht Percentile 76.18 % BMI 25.50 Index Blood Pressure Diastolic 52 mmHg Blood Pressure Systolic 90 mmHg BMIPercentile 85.29 % Wt Percentile 89.53 % Results No Known Results Summary Purpose [employer] Submission
--- OUTSIDE RECORDS SUMMARY | 2018-08-20 18:21 | XMS REPORT ---
Author Author GRZEGORZ CRABTREE [facility] Address [address] [address] Care Team Providers Care Direct Mail Clerk Name Role Phone GRZEGORZ CRABTREE Unavailable PROBLEMS Type Condition ICD9-CM Code HTI79-GE Code Onset Dates Condition Status SNOMED Code Problem Impulse control disorder F63.9 Active 99871011 Problem Dysuria 788.1 Active 08229655 Problem Major depressive disorder, recurrent, moderate F33.1 Active 409073486 Assessment Encounter for Depo-Provera contraception Z30.42 Apr, Active 750995697 Assessment control counseling Z30.9 Apr, Active 37152229 Problem Mastodynia N64.4 Active 55171408 Problem Abdominal pain, right upper quadrant R10.11 Active 952176861 Problem Generalized anxiety disorder F41.1 Active 89246832 Problem Excessive or frequent menstruation 626.2 Active 034424445 Problem Oral contraceptive pill surveillance Z30.41 Active 242383678 Problem Abdominal pain, unspecified abdominal location R10.9 Active 70136687 ALLERGIES Substance Reaction Event Type Date Status Amoxicillin Unknown Drug Allergy Apr, Active SOCIAL HISTORY No smoking Hx information available PLAN OF CARE VITAL SIGNS Height 66 in 2016-04-29 Weight 154.8 lbs 2016-04-29 Heart Rate 86 bpm 2016-04-29 Respiratory Rate 20 2016-04-29 BMI 24.98 kg/m2 2016-04-29 Blood pressure systolic 126 mmHg 2016-04-29 Blood pressure diastolic 54 mmHg 2016-04-29 MEDICATIONS Medication Instructions Dosage Frequency Start Date End Date Duration Status Sprintec 28 0.25-35 MG-MCG Orally Once a day 1 tablet 24h Apr, 28 day(s) Active Prozac 10 MG Orally Once a day 1 capsule in the morning 24h Apr, 30 day(s) Active RESULTS Name Result Date Reference Range TEST, URINE (IN HOUSE) 2016-04-29 RESULTS negative Lot # [id number] Control + Exp date 02/04 PROCEDURES Procedure Date Ordered Related Diagnosis Body Site Office Visit, Est Pt., Level 3 Apr 29, 2016 URINE TEST Apr 29, 2016 THER/PROPH/DIAG INJ, SC/IM Apr 29, 2016 DEPO PROVERA (150 MG/ML) Apr 29, 2016 IMMUNIZATIONS Vaccine Route Administration Date Status DEPO PROVERA (150 MG/ML) IM Intramuscular Apr 29, 2016 Administered
--- OUTSIDE RECORDS SUMMARY | 2018-08-20 18:21 | XMS REPORT ---
Author Author LI GUZMAN Organization e[employer] Address Unknown Phone Unavailable Care Team Providers Care Reticle Printer Name Role Phone LI GUZMAN Unavailable Allergies No Known Allergies Problems Problem Type Condition Code Onset Dates Condition Status Problem Abdominal pain, right upper quadrant R10.11 Active Problem Oral contraceptive pill surveillance Z30.41 Active Problem Mastodynia N64.4 Active Problem Abdominal pain, unspecified abdominal location R10.9 Active Problem Generalized anxiety disorder F41.1 Active Medications No Known Medications Procedures Procedure Coding System Code Date Psych diagnostic evaluation, established patient CPT-4 98521 Apr 19, 2016 Results No Known Results Summary Purpose eClinicalWorks Submission
--- OUTSIDE RECORDS SUMMARY | 2018-08-20 18:21 | XMS REPORT ---
Author Author HERNAN HUTCHISON Organization [facility] Address [address] [place] [address] Care Team Providers Care Airflight Attendants Supervisor Name Role Phone HERNAN HUTCHISON Unavailable PROBLEMS Type Condition ICD9-CM Code [id number] Code Onset Dates Condition Status SNOMED Code Problem Major depressive disorder, recurrent, moderate F33.1 Active 363986074 Problem Excessive or frequent menstruation 626.2 Active 771178820 Problem Dysuria 788.1 Active 88626860 Problem Mastodynia N64.4 Active 62709424 Problem Abdominal pain, right upper quadrant R10.11 Active 334820815 Problem Generalized anxiety disorder F41.1 Active 05490001 Problem Impulse control disorder F63.9 Active 67002301 Problem Oral contraceptive pill surveillance Z30.41 Active 227262642 Problem Abdominal pain, unspecified abdominal location R10.9 Active 30596239 ALLERGIES Substance Reaction Event Type Date Status Amoxicillin Unknown Drug Allergy May, Active Lemon hives Non Drug Allergy May, Active ENCOUNTERS Encounter Location Date Diagnosis [facility] [address] [place] [id number] [place] [phone] May, [facility] [address] [place] [id number] [place] [address] May, Genital ulcer, female N76.6 [facility] [address] [place] [id number] [place] [address] May, Pelvic pain R10.2 [facility] [address] [place] [id number] [place] [address] Mar, Urticaria L50.9 and Insect bite, subsequent encounter W57.XXXD [facility] [address] [place] [id number] [place] [phone] Apr, control counseling Z30.9 ; Encounter for Depo-Provera contraception Z30.42 and Generalized anxiety disorder F41.[address] [id number] [id number] Apr, Major depressive disorder, recurrent, moderate F33.1 and Impulse control disorder F63.[address] [id number][place] [id number] Apr, Oral contraceptive prescribed Z30.011 ; Generalized anxiety disorder F41.1 and Major depressive disorder with single episode, remission status unspecified F32.[address] [id number][place] [id number] Apr, Major depressive disorder, recurrent, moderate F33.1 and Impulse control disorder F63.[address] [id number][place] [id number] Mar, [facility] [id number] [place] [id number] Mar, [place] [address] [place] [id number] [place] [phone] Sep, [place] [address] [place] [id number] [place] [phone] Sep, Irregular menses N92.6 and Oral contraceptive pill surveillance Z30.41 [place] [address] [place] [id number] [place] [phone] Sep, Gastro-esophageal reflux disease without esophagitis K21.9 ; Generalized anxiety disorder F41.1 ; Diarrhea R19.7 ; Hematochezia K92.1 ; Menorrhagia with irregular cycle N92.1 and Abdominal pain, unspecified abdominal location R10.9 [place] [address] [place] [id number] [place] [address] Jul, [place] [address] [phone] 07 Jul, 2015 Oral contraceptive pill surveillance Z30.41 and Abdominal pain, unspecified abdominal location R10.9 [place] [address] [place] [id number] [place] [phone] 07 Jul, 2015 Encounter for well child visit with abnormal findings Z00.121 ; Exercise counseling Z71.89 ; Encounter for immunization Z23 ; Dietary counseling Z71.3 ; High risk medication use Z79.899 and Generalized anxiety disorder F41.1 [place] [address] [address] 14 Apr, 2015 [place] [address] [phone] 15 Jan, 2015 Constipation 564.00 ; GERD (gastroesophageal reflux disease ) 530.81 ; Depression 311 and Anxiety 300.00 [place] [address] [phone] Nov, [place] [address] [address] Nov, [place] [address] [place] [id number] [place] [phone] Aug, [place] [id number] [place] [id number] Aug, [place] [id number] [place] [phone] Aug, [place] [address] [place] [id number] [place] [phone] Aug, [place] [id number] [place] [phone] Aug, [place] [address] [address] Aug, [place] [address] [place] [id number] [place] [address] Feb, [address] [place], [place] [phone] Feb, [facility] [place] [address] [facility] [id number], [place] [address] Jan, [facility] [place] [address] [facility] [id number], [place] [address] Jan, [facility] [address] [facility] [id number] [phone] December, [facility] [place] [address] [facility] [id number], [place] [address] December, IMMUNIZATIONS No Known Immunizations SOCIAL HISTORY Never Assessed REASON FOR VISIT Pelvic pain/heaviness. Seen in ER 3 days ago and had STD check. Exam was unremarkable. Continues with pelvic pain that started about 10 days ago. Kassidy Hatch MA PLAN OF CARE Activity Details Follow Up 2 Weeks, prn Reason: Pending Test HSV 1/2 ANTIBODY IgM Pending Test HSV 1 IGM TITER Pending Test HSV 2 IGM TITER VITAL SIGNS Height 66 in 2018-06-08 Weight 167.4 lbs 2018-06-08 Temperature 97.7 degrees Fahrenheit 2018-06-08 Heart Rate 75 bpm 2018-06-08 Respiratory Rate 16 2018-06-08 Oximetry 98 % 2018-06-08 BMI 27.02 kg/m2 2018-06-08 Blood pressure systolic 106 mmHg 2018-06-08 Blood pressure diastolic 58 mmHg 2018-06-08 MEDICATIONS Medication Instructions Dosage Frequency Start Date End Date Duration Status Ketorolac Tromethamine 10 MG Orally every 6 hrs 1 tablet with food or milk as needed 6h May, 5 day(s) Active Ibuprofen 800 MG Orally Three times a day with food 1 tablet with food or milk as needed May, May, 5 days Not-Taking Doxycycline Hyclate 100 mg Orally twice a day 1 capsule 12h May, May, Active RESULTS No Results PROCEDURES Procedure Date Ordered Result Body Site HERPES SIMPLEX TYPE 2 Jun 08, 2018 HERPES SIMPLEX TEST Jun 08, 2018 VENIPUNCT, ROUTINE* Jun 08, 2018 INSTRUCTIONS MEDICATIONS ADMINISTERED No Known Medications MEDICAL (GENERAL) HISTORY Type Description Date Medical History indigestion problems Medical History menstrual problems Medical History anxiety Surgical History oral surgery Hospitalization History attempting to commit suicide 2013
--- OUTSIDE RECORDS SUMMARY | 2018-08-20 18:21 | XMS REPORT ---
Author ROMY Meehan eClinicalWorks Address Unknown Phone Unavailable Care Team Providers Care Case Investigator Name Role Phone ROMY HOLT CP Unavailable Allergies, Adverse Reactions, Alerts Substance Reaction Event Type Amoxicillin Info Not Available Drug Allergy Problems Problem Type Condition Code Onset Dates Condition Status Assessment High risk medication use Z79.899 Active Assessment Encounter for immunization Z23 Active Assessment Dietary counseling Z71.3 Active Assessment Generalized anxiety disorder F41.1 Active Problem Abdominal pain, right upper quadrant R10.11 Active Problem Oral contraceptive pill surveillance Z30.41 Active Problem Mastodynia N64.4 Active Assessment Encounter for well child visit with abnormal findings Z00.121 Active Assessment Exercise counseling Z71.89 Active Problem Abdominal pain, unspecified abdominal location R10.9 Active Problem Generalized anxiety disorder F41.1 Active Medications Medication Code System Code Instructions Start Date End Date Status Dosage Prozac [facility] [address]-53 40 MG Orally Once a day 1 capsule in the morning MiraLax [facility] [address]-33 17 gm/dose Orally Once a day February 02, 2015 17 grams mixed in 8 oz of water or juice Tri-Previfem [facility] [address]-20 0.18/0.215/0.25 MG-35 MCG Orally Once a day 1 tablet Vistaril [facility] [address]-48 25 MG Orally every 8 hrs as needed 1 capsule as needed Procedures Procedure Coding System Code Date AUDIOMETRY-SCREEN CPT-4 56397 Jul 27, 2015 VISUAL ACUITY SCREEN CPT-4 19819 Jul 27, 2015 Preventive Care Est Pt. Age 12-17 CPT-4 17882 Jul 27, 2015 Office Visit, Est Pt., Level 3 CPT-4 83892 Jul 27, 2015 MENINGOCOCCAL (MENVEO) CPT-4 97067 Jul 27, 2015 FLUZONE QUAD (3 & UP)-SINGLE DOSE VIAL-SANOFI PASTEUR-2014 CPT-4 89417 Jul 27, 2015 IMMUNIZATION ADMIN, EACH ADD (please include units) CPT-4 62799 Jul 27, 2015 SINGLE IMMUNIZATION ADMIN CPT-4 14365 Jul 27, 2015 Vital Signs Date/Time: Jul 27, 2015 BMIPercentile 94.6 % Temperature 97.7 F Wt Percentile 95.08 % Weight 175lbs 2oz lbs Height 65 in Hearing Pass P / L Blood Pressure Diastolic 64 mmHg Blood Pressure Systolic 120 mmHg Cardiac Monitoring Heart Rate 86 bpm Ht Percentile 63.5 % BMI 29.14 Index Results No Known Results Immunizations Vaccine Administration Date FLUZONE QUAD (3 & UP)-SINGLE DOSE VIAL-SANOFI PASTEUR-2014Jul 27, 2015 MENINGOCOCCAL (MENVEO) Jul 27, 2015 Summary Purpose eClinicalWorks Submission
--- OUTSIDE RECORDS SUMMARY | 2018-08-20 18:21 | XMS REPORT ---
Author Author MARCELINO SINGH [facility] eClinicalWorks Address Unknown Phone Unavailable Care Team Providers Care Integrated Logistics Programs Director Name Role Phone MARCELINO SINGH Unavailable Allergies No Known Allergies Problems Problem Type Condition Code Onset Dates Condition Status Problem Abdominal pain, right upper quadrant R10.11 Active Problem Oral contraceptive pill surveillance Z30.41 Active Problem Mastodynia N64.4 Active Problem Abdominal pain, unspecified abdominal location R10.9 Active Problem Generalized anxiety disorder F41.1 Active Medications No Known Medications Results No Known Results Summary Purpose eClinicalWorks Submission
--- OUTSIDE RECORDS SUMMARY | 2018-08-20 18:21 | XMS REPORT ---
Author Author SYLVIA NEAL [facility] eClinicalWorks Address Unknown Phone Unavailable Care Team Providers Care Manager Packaging Name Role Phone SYLVIA NEAL Unavailable Allergies No Known Allergies Problems Problem Type Condition ICD-9 Code Onset Dates Condition Status Problem Abdominal pain, right upper quadrant 789.01 Active Problem Mastodynia 611.71 Active Medications No Known Medications Results No Known Results Summary Purpose eClinicalWorks Submission
--- OUTSIDE RECORDS SUMMARY | 2018-08-20 18:21 | XMS REPORT ---
Author Author LI GUZMAN Organization [employer] Address Unknown Phone Unavailable Care Team Providers Care House Painter Helper Name Role Phone LI GUZMAN CP Unavailable Allergies No Known Allergies Problems Problem Type Condition Code Onset Dates Condition Status Problem Major depressive disorder, recurrent, moderate F33.1 Active Problem Impulse control disorder F63.9 Active Problem Abdominal pain, right upper quadrant R10.11 Active Problem Oral contraceptive pill surveillance Z30.41 Active Problem Mastodynia N64.4 Active Problem Excessive or frequent menstruation 626.2 Active Problem Dysuria 788.1 Active Problem Abdominal pain, unspecified abdominal location R10.9 Active Problem Generalized anxiety disorder F41.1 Active Medications No Known Medications Results No Known Results Summary Purpose eClinicalWorks Submission
--- OUTSIDE RECORDS SUMMARY | 2018-08-20 18:21 | XMS REPORT | Continuity of Care Document ---
Author Author [facility] Organization [facility] Address [facility] [address] [place] [address] Phone Unavailable Support Name Relationship Address Phone VICTORIA FULLER MD Caregiver [address] [place], [place] [address] DR CHELA Caregiver Unknown Unavailable GIANLUCA BROWN Next Of Kin [address] [place] [id number] Insurance Providers Guarantor Rebecca Brown Address [address] [place] [phone] Email NO Payer [facility] Policy Number [id number] Subscriber's Name Rebecca Brown Relationship 18 Self / Same As Patient Advance Directives Directive Response Recorded Date/Time Do you have an Advanced Directive? No 05/03/05 10:45am Advance Directives No 08/23/12 7:10am Living Will No 08/23/12 7:10am Health Care Proxy No 06/05/18 5:07pm Power of Accounts Specialist for Health Care No 08/23/12 7:10am Organ, Tissue, or Eye Donor No 08/23/12 7:10am Do you have a signed organ donor card? No 05/03/05 10:45am Chief Complaint and Reason for Visit Chief Complaint VAGINAL PAIN Reason for Visit Vaginal pain Problems Medical Problem Onset Date Status Abdominal pain Unknown Acute Anxiety and depression Unknown Acute Anxiety and depression Unknown Acute Overdose on Tylenol Unknown Acute Past Problems Medical Problem Onset Date Status Allergic reaction Unknown Acute Cervical strain Unknown Acute Contusion of head Unknown Acute Urticaria Unknown Acute Vaginal pain Unknown Acute Medications Current Home Medications Medication Dose Units Route Directions Days Qty Instructions Start Date Control 1 Tab ORAL Daily for Prevention Doxycycline Hyclate (Doxycycline Hyclate*) 100 Mg Tablet 100 Mg ORAL Twice A Day 28 Tablet 06/05/18 Ketorolac Tromethamine 10 Mg Tablet 10 Mg ORAL Every 6 Hours as needed for Pain 14 Tablet 06/05/18 Prednisone (Prednisone 20 Mg Tab*) 20 Mg Tablet 40 Mg ORAL Daily 5 Days 04/02/18 Past Home Medications Medication Directions Ordered Status Albuterol (Proair 17GM Hfa Inhaler*) 1 Puff Inh, 2 Puff Inhalation Every 6 Hours As Needed for Activity Induced Asthma Discontinued Amoxicillin/Clavulanate Potassium (Augmentin 875 Tab*) 1 Tab Tablet, 1 Tab Oral Twice A Day 08/23/12 Discontinued Clonazepam (Clonazepam*) 0.5 Mg Tablet, 2.5 Mg Oral Twice A Day as needed for Anxiety Discontinued Fluoxetine Hcl (Prozac 20 Mg*) 20 Mg Capsule, 20 Mg Oral Daily for Depression Discontinued Hydroxyzine Hcl (Atarax 25 Mg Tab*) 25 Mg Tablet, 25 Mg Oral Twice A Day for Anxiety Discontinued Melatonin 10 Mg Tablet, 10 Mg Oral Bedtime for Sleep Aid Discontinued Meloxicam (Mobic 7.6 Mg Tab*) 7.5 Mg Tablet, 7.5 Mg Oral Twice A Day Discontinued Polyethylene Glycol (Miralax*) 17 Gm Powd.pack, 17 Gm Oral Daily for Constipation Discontinued Social History Social History Problem Response Recorded Date/Time Onset Date Status Smoking Status Current every day smoker 04/29/2016 11:33pm Not Applicable Not Applicable Tobacco Use Cigarettes 04/29/2016 11:33pm Not Applicable Not Applicable Smoking Status Start Date Stop Date Current every day smoker Hospital Discharge Instructions No hospital discharge instruction information available. Plan of Care Discharge Date 06/05/18 7:40pm Disposition 01 HOME, GROUP HOME,ASSISTED LIVING Condition at Discharge Improved Instructions/Education Provided Pelvic Pain (ED) Prescriptions See Medication Section Additional Instructions/Education Emergency Department as soon as possible if any worse. See your doctor tomorrow as scheduled. Take your medicines as directed. Functional Status Query Response Date Recorded Patient Behavior Appropriate June 05, 2018 5:04pm Allergies, Adverse Reactions, Alerts Allergen Type Severity Reaction Status Last Updated NO KNOWN ALLERGIES Allergy Unknown Active 06/05/18 Immunizations Immunization Event Date Type Not Given Reason Dose Number Lot Number Android Programmer VIS Given DTP 08/23/12 Administered 1 Query Response on File Recorded Date/Time Hx Diphtheria, Pertussis, Tetanus Vaccination Up To Date 06/05/18 5:04pm Hx Influenza Vaccination No 06/05/18 5:04pm Hx Pneumococcal Vaccination No 04/16/18 12:30am Hx Tetanus, Diphtheria Vaccination Y - 200508/23/12 2:17am Vital Signs Acute Vital Signs Vital Response Date/Time Temperature (Fahrenheit) 97.7 degrees F (97.6 - 99.5) 06/05/2018 7:40pm Temperature Source Temporal Artery 06/05/2018 7:40pm Pulse Rate (adult) 90 bpm (60 - 90) 06/05/2018 7:40pm Respiratory Rate 18 bpm (12 - 24) 06/05/2018 7:40pm Blood Pressure 97/59 mm Hg 06/05/2018 7:40pm O2 Sat by Pulse Oximetry 98 % (90 - 100) 06/05/2018 7:40pm Oxygen Delivery Method Room Air 06/05/2018 7:40pm Height 5 ft 2 in 06/05/2018 5:04pm Weight 143.30 lb 06/05/2018 5:04pm Body Mass Index 26.0 kg/m^2 06/05/2018 5:04pm Results Laboratory Results Test Name Result Units Flags Reference Collection Date/Time Result Date/ Time Comments White Blood Count 6.2 K/uL 4.8-10.8 06/05/2018 6:05pm 06/05/2018 6: 11pm Red Blood Count 4.25 M/uL 4.20-5.40 06/05/2018 6:05pm 06/05/2018 6: 11pm Hemoglobin 12.8 gm/dL 12.0-16.0 06/05/2018 6:05pm 06/05/2018 6:11pm Hematocrit 38.0 % 37.0-47.0 06/05/2018 6:05pm 06/05/2018 6:11pm Mean Corpuscular Volume 89.4 fL 81.0-99.0 06/05/2018 6:05pm 06/05/2018 6:11pm Mean Corpuscular Hemoglobin 30.1 pg 27.0-31.0 06/05/2018 6:05pm 2017 6:11pm Mean Corpuscular Hemoglobin Concent 33.7 g/dL 30.0-37.0 06/05/2018 6: 05pm 06/05/2018 6:11pm Red Cell Distribution Width 12.5 % 11.5-14.5 06/05/2018 6:05pm 2017 6:11pm Platelet Count 270 K/uL 130-400 06/05/2018 6:05pm 06/05/2018 6:11pm Mean Platelet Volume 9.2 fL 7.4-10.4 06/05/2018 6:05pm 06/05/2018 6: 11pm Neutrophils (%) (Auto) 55.6 % 42.2-75.2 06/05/2018 6:05pm 06/05/2018 6: 11pm Lymphocytes (%) (Auto) 37.5 % 20.5-51.1 06/05/2018 6:05pm 06/05/2018 6: 11pm Monocytes (%) (Auto) 3.5 % 0-10 06/05/2018 6:05pm 06/05/2018 6:11pm Eosinophils (%) (Auto) 2.8 % 0-3 06/05/2018 6:05pm 06/05/2018 6:11pm Basophils (%) (Auto) 0.7 % 0.0-1.0 06/05/2018 6:05pm 06/05/2018 6:11pm Neutrophils # (Auto) 3.4 K/uL 2.0-6.9 06/05/2018 6:05pm 06/05/2018 6: 11pm Lymphocytes # (Auto) 2.3 K/uL 1.2-3.4 06/05/2018 6:05pm 06/05/2018 6: 11pm Monocytes # (Auto) 0.2 K/uL 0.1-0.6 06/05/2018 6:05pm 06/05/2018 6: 11pm Eosinophils # (Auto) 0.2 K/uL 0.0-0.7 06/05/2018 6:05pm 06/05/2018 6: 11pm Basophils # (Auto) 0.0 K/uL 0.0-0.2 06/05/2018 6:05pm 06/05/2018 6: 11pm Random Glucose 97 mg/dL 70-110 06/05/2018 6:05pm 06/05/2018 6:31pm Blood Urea Nitrogen 7 mg/dL 7-18 06/05/2018 6:05pm 06/05/2018 6:31pm Creatinine 0.8 mg/dL 0.55-1.02 06/05/2018 6:05pm 06/05/2018 6:31pm Glomerular Filtration Rate Calc 92.4 mL/min 06/05/2018 6:05pm 2017 6:31pm Sodium Level 139 mEq/L 136-145 06/05/2018 6:05pm 06/05/2018 6:31pm Potassium Level 3.4 mEq/L L 3.5-5.0 06/05/2018 6:05pm 06/05/2018 6:31pm Chloride Level 106 mEq/L 98-107 06/05/2018 6:05pm 06/05/2018 6:31pm Carbon Dioxide Level 26.2 mEq/L 21-32 06/05/2018 6:05pm 06/05/2018 6: 31pm Calcium Level 8.5 mg/dL L 8.8-10.5 06/05/2018 6:05pm 06/05/2018 6:31pm Total Protein 6.8 gm/dL 6.4-8.2 06/05/2018 6:05pm 06/05/2018 6:31pm Albumin 3.4 gm/dL 3.4-5.0 06/05/2018 6:05pm 06/05/2018 6:31pm Total Bilirubin 0.40 mg/dL 0.00-1.00 06/05/2018 6:05pm 06/05/2018 6: 31pm Aspartate Amino Transf (AST/SGOT) 12 U/L L 15-37 06/05/2018 6:05pm 06/05 6:31pm Alanine Aminotransferase (ALT/SGPT) 13 U/L 12-78 06/05/2018 6:05pm 6:31pm Total Alkaline Phosphatase 53 U/L 46-116 06/05/2018 6:05pm 06/05/2018 6 :31pm Urine Color YELLOW YELLOW 06/05/2018 6:20pm 06/05/2018 6:44pm Urine Appearance CLEAR CLEAR 06/05/2018 6:20pm 06/05/2018 6:44pm Urine Glucose (UA) NEGATIVE mg/dL NEGATIVE 06/05/2018 6:20pm 2017 6:44pm Urine Bilirubin NEGATIVE NEGATIVE 06/05/2018 6:20pm 06/05/2018 6: 44pm Urine Ketones NEGATIVE mg/dL NEGATIVE 06/05/2018 6:20pm 06/05/2018 6: 44pm Urine Specific [place] 1.015 1.010-1.025 06/05/2018 6:20pm 2017 6:44pm Urine Occult Blood 2+ (Moderate) H NEGATIVE 06/05/2018 6:20pm 2017 6:44pm URINE CULTURE ORDERED PER MEDICAL STAFF-APPROVED PROTOCOL FOR LAB. Urine pH 7.0 5.0-8.0 06/05/2018 6:20pm 06/05/2018 6:44pm Urine Protein NEGATIVE mg/dL NEGATIVE 06/05/2018 6:20pm 06/05/2018 6: 44pm Urine Urobilinogen 0.2 mg/dL E.U./dL 0.2-1.0 06/05/2018 6:20pm 2017 6:44pm Urine Nitrate NEGATIVE NEGATIVE 06/05/2018 6:20pm 06/05/2018 6:44pm Urine Leukocyte Esterase TRACE H NEGATIVE 06/05/2018 6:20pm 2017 6:44pm Urine RBC 1-2 /hpf H 0 06/05/2018 6:20pm 06/05/2018 6:47pm Urine WBC 3-4 /hpf 0-4 06/05/2018 6:20pm 06/05/2018 6:47pm Urine Squamous Epithelial Cells 0-1 /hpf 0-1 06/05/2018 6:20pm 2017 6:47pm Urine Bacteria TRACE H NEGATIVE 06/05/2018 6:20pm 06/05/2018 6:47pm Urine Mucus TRACE H NEGATIVE 06/05/2018 6:20pm 06/05/2018 6:47pm Urine HCG, Qualitative NEGATIVE NEG 06/05/2018 6:20pm 06/05/2018 6: 47pm Procedures Procedure Status Date Provider(s) Computed tomography of head without contrast Completed 04/16/18 BERRY GARCIA D.O. Computed tomography of cervical spine without contrast Completed 04/16/18 BERRY GARCIA D.O. Encounters Encounter Location Arrival/Admit Date Discharge/Depart Date Attending Provider Departed Emergency Room [place] 06/05/18 5:03pm 06/05/18 7:40pm VICTORIA FULLER MD Departed Emergency Room [place] 04/16/18 12:26am 04/16/18 1:30am BERRY GARCIA D.O. Departed Emergency Room [place] 04/02/18 5:00am 04/02/18 6:15am PATRICK SOTO MD Recent Diagnosis
--- OUTSIDE RECORDS SUMMARY | 2018-08-20 18:21 | XMS REPORT ---
Author Author MARCELINO SINGH eClinicalWorks Address Unknown Phone Unavailable Care Team Providers Care Farrowing Manager Name Role Phone MARCELINO SINGH Unavailable Allergies, Adverse Reactions, Alerts Substance Reaction Event Type Amoxicillin Info Not Available Drug Allergy Problems Problem Type Condition Code Onset Dates Condition Status Problem Abdominal pain, right upper quadrant R10.11 Active Problem Oral contraceptive pill surveillance Z30.41 Active Problem Mastodynia N64.4 Active Assessment Oral contraceptive pill surveillance Z30.41 Active Assessment Abdominal pain, unspecified abdominal location R10.9 Active Problem Abdominal pain, unspecified abdominal location R10.9 Active Problem Generalized anxiety disorder F41.1 Active Medications Medication Code System Code Instructions Start Date End Date Status Dosage Prozac [facility] [address]-84 40 MG Orally Once a day 1 capsule in the morning MiraLax [facility] [address]-21 17 gm/dose Orally Once a day February 02, 2015 17 grams mixed in 8 oz of water or juice Tri-Previfem [facility] [address]-39 0.18/0.215/0.25 MG-35 MCG Orally Once a day 1 tablet Vistaril [facility] [address]-88 25 MG Orally every 8 hrs as needed 1 capsule as needed Procedures Procedure Coding System Code Date No Charge CPT-4 04931 Jul 27, 2015 Office Visit, Est Pt., Level 3 CPT-4 48713 Jul 27, 2015 URINE TEST CPT-4 66888 Jul 27, 2015 Vital Signs Date/Time: Jul 27, 2015 Temperature 97.7 F BMIPercentile 94.61 % Weight 175.2 lbs Height 65 in BMI 29.15 Index Blood Pressure Diastolic 64 mmHg Blood Pressure Systolic 120 mmHg Cardiac Monitoring Heart Rate 86 bpm Wt Percentile 95.09 % Ht Percentile 63.5 % Results Name Result Date Reference Range Unit Abnormality Flag TEST, URINE (IN HOUSE) ----RESULTS negative [id number] ----Lot # [id number] ----Control + [id number] ----Exp date [id number] Summary Purpose eClinicalWorks Submission
--- OUTSIDE RECORDS SUMMARY | 2018-08-20 18:22 | XMS REPORT ---
Author Author [facility] Medical Staff Organization [facility] Address [address], [place] [address] Phone [phone] Summary purpose TRANSITION OF CARE AUTO GENERATION Chief Complaint and Reason for Visit Admit Diagnosis 1 CERVICALGIA Problem list No authorized problems tracked for continuity of care are available for this visit. Encounters No authorized problems tracked for encounter diagnoses are available for this visit. Medications No home medications recorded for this patient visit Allergies, adverse reactions, alerts Allergen Category Ingredient Status Reaction Severity Onset Amoxicillin Drug Allergy Amoxicillin Confirmed or Verified Immunizations No immunizations recorded for this patient visit Relevant diagnostic tests and/or laboratory data RESULTS Chemistry [id number]:00:00 Result Normal Range Units Sodium 139 134-145 mEq/l Potassium 3.7 3.5-5.1 mEq/l Chloride 105 98-107 mEq/l CO2 25.7 22-28 mEq/l Glucose H 124 70-105 mg/dl BUN 12 7-18 mg/dl Creatinine 0.82 0.6-1.0 mg/dl Calcium 9.5 8.4-10.2 mg/dl TP - Total Protein 7.7 6.0-8.3 g/dl Albumin 3.9 3.5-5 g/dl Bilirubin - Total 0.3 0.1-1.0 mg/dl AST 15 10-42 IU/L ALT 17 12-65 IU/L ALP L 54 55-179 IU/L Osmolality L 278.7 280-300 mOsm/L Albumin/Globulin Ratio 1.0 0-8 Anion GAP 8.3 8-16 BUN/Creatinine Ratio 14.6 10-20 Estimated GFR 94 >=60 mL/min/1.7 Hematology [id number]:00:00 Result Normal Range Units WBC 7.2 4.8-10.8 103/uL RBC 4.6 4.2-5.4 106/uL HGB 13.0 12.0-16.0 g/dl HCT 39.8 36.9-47.0 % MCV 86.7 81-99 FL MCH 28.3 27-31 pg MCHC L 32.7 33-37 g/dl RDW 12.6 11.5-15.5 % PLT 339 130-400 103/uL MPV 9.6 7.3-10.4 FL Neutro % H 75.2 40-70 % Lymph % 21.6 20-40 % Whiteside % 2.5 0-10.0 % Eos % 0.4 0-7.0 % Baso % 0.3 0-2 % Neutro # 5.4 1.5-7.5 103/uL Lymph # 1.6 0.9-4.0 103/uL Whiteside # 0.2 0-0.8 103/uL Eos # 0.0 0-0.6 103/uL Baso # 0.0 0-0.1 103/uL Radiology Results [id number]:00 Result Normal Range Units MPV 9.6 7.3-10.4 FL History of procedures Procedure Code Code Type Description Date Performed Performing Physician 11421 CPT-4 COMPLETE CBC W/AUTO DIFF WBC 05-12-2014 PHI ASHBY 23290 CPT-4 COMPREHEN METABOLIC PANEL 05-12-2014 PHI ASHBY 28449 CPT-4 ROUTINE VENIPUNCTURE 05-12-2014 ROBERT TORRES 32522 CPT-4 EMERGENCY DEPT VISIT 05-12-2014 ROBERT TORRES 01981 CPT-4 EMERGENCY DEPT VISIT 05-12-2014 ROBERT TORRES Functional status No functional or cognitive status observations are available for this visit. Vital signs Type Value Date Respiration Rate 20breaths per minute 98-85-091387:00 Pulse 79beats per minute [id number]:00 Oxygen Saturation 99% 69-73-631011:00 BP Systolic 114mmHg 76-31-133225:00 BP Diastolic 74mmHg 97-49-764254:00 Temperature 98.0F 77-11-316228:00 Social history Type Value Smoking Status CURRENT SOME DAY SMOKER Treatment Plan No treatment plan text is available for this visit. Hospital discharge instructions Dismissal Condition fair Disposition on DC home DC Inst/Educ Give yes Med/Side Effects Rev yes
--- OUTSIDE RECORDS SUMMARY | 2018-08-20 18:22 | XMS REPORT | Continuity of Care Document ---
Author Author [facility] Organization [facility] Address [facility] [address] [place] [address] Phone Unavailable Support Name Relationship Address Phone PATRICK SOTO MD Caregiver [address] [place], [place] [phone] PEARL BROWN Next Of Kin [address] [place], [place] [phone] Insurance Providers Guarantor William Brown Address [address] [place] [address] Payer [facility] Policy Number [id number] Subscriber's Name William Brown Relationship 19 Child Group Number [id number] Group Name [facility] Payer [facility] Policy Number [id number] Subscriber's Name Rebecca Brown Relationship 18 Self / Same As Patient Advance Directives Directive Response Recorded Date/Time Do you have an Advanced Directive? No 05/03/05 10:45am Advance Directives No 08/23/12 7:10am Living Will No 08/23/12 7:10am Health Care Proxy No 04/02/18 5:05am Power of Irrigation District Manager for Health Care No 08/23/12 7:10am Organ, Tissue, or Eye Donor No 08/23/12 7:10am Do you have a signed organ donor card? No 05/03/05 10:45am Chief Complaint and Reason for Visit Chief Complaint ALLERGIC REACTION Reason for Visit Urticaria Allergic reaction Problems Medical Problem Onset Date Status Abdominal pain Unknown Acute Anxiety and depression Unknown Acute Anxiety and depression Unknown Acute Overdose on Tylenol Unknown Acute Past Problems Medical Problem Onset Date Status Allergic reaction Unknown Acute Urticaria Unknown Acute Medications Current Home Medications Medication Dose Units Route Directions Days Qty Instructions Start Date Control 1 Tab ORAL Daily for Prevention Prednisone (Prednisone 20 Mg Tab*) 20 Mg Tablet 40 Mg ORAL Daily 5 Days 08/13/18 Past Home Medications Medication Directions Ordered Status [...] information available. Plan of Care Discharge Date 04/02/18 6:15am Condition at Discharge Improved Instructions/Education Provided Urticaria (DC) General Allergic Reaction (ED) Prescriptions See Medication Section Referrals Your PCP Order Date: 2-3 Days Additional Instructions/Education Return to the ED for shortness of breath, abdominal pain, vomiting, diarrhea, return of symptoms, worsening symptoms, or any other concerns. Follow up with your PCP in 2-3 days. Functional Status Query Response Date Recorded Iban Coma Scale Total 15 April 02, 2018 5:00am Patient Behavior Cooperative Appropriate April 02, 2018 5:00am Allergies, Adverse Reactions, Alerts Allergen Type Severity Reaction Status Last Updated NO KNOWN ALLERGIES Allergy Active 08/23/12 Immunizations Immunization Event Date Type Not Given Reason Dose Number Lot Number Ocular Care Technician VIS Given DTP 08/23/12 Administered 1 Query Response on File Recorded Date/Time Hx Diphtheria, Pertussis, Tetanus Vaccination Unknown 04/02/18 5:00am Hx Influenza Vaccination No 04/02/18 5:00am Hx Pneumococcal Vaccination No 08/13/18 5:00am Hx Tetanus, Diphtheria Vaccination Y - 2006 08/23/12 2:17am Vital Signs Acute Vital Signs Vital Response Date/Time Temperature (Fahrenheit) 97.6 degrees F (97.6 - 99.5) 04/02/2018 5:00am Temperature Source Temporal Artery 04/02/2018 5:00am Pulse Rate (adult) 68 bpm (60 - 90) 04/02/2018 6:10am Respiratory Rate 18 bpm (12 - 24) 04/02/2018 6:10am Blood Pressure 110/68 mm Hg 04/02/2018 6:10am O2 Sat by Pulse Oximetry 98 % (90 - 100) 04/02/2018 6:10am Oxygen Delivery Method Room Air 04/02/2018 6:10am Height 5 ft 5 in 04/02/2018 5:00am Weight 175.27 lb 04/02/2018 5:00am Body Mass Index 29.0 kg/m^2 04/02/2018 5:00am Results No relevant diagnostic test, laboratory data and/or discharge summary information available. Procedures No procedure information available. Encounters Encounter Location Arrival/Admit Date Discharge/Depart Date Attending Provider Departed Emergency Room [place] 04/02/18 5:00am 04/02/18 6:15am PATRICK SOTO MD Recent Diagnosis
--- OUTSIDE RECORDS SUMMARY | 2018-08-20 18:22 | XMS REPORT | Continuity of Care Document ---
Author Author [facility] Organization [facility] Address [facility] [address] [place] [address] Phone Unavailable Support Name Relationship Address Phone ANAIS KNAPP DO Caregiver [address] [place], [place] [phone] JESUS PHILLIPS MD Caregiver [address] [place] [address] Unavailable PEARL BELLE Next Of Kin [address] [place] [address] Insurance Providers Payer Name Policy Number Subscriber Name Relationship [facility] [id number] William Belle 19 Child Advance Directives Directive Response Recorded Date/Time Do you have an Advanced Directive? No 05/03/05 10:45am Advance Directives No 08/23/12 7:10am Living Will No 08/23/12 7:10am Health Care Proxy No 04/29/16 7:06pm Power of Power Saw Operator for Health Care No 08/23/12 7:10am Organ, Tissue, or Eye Donor No 08/23/12 7:10am Do you have a signed organ donor card? No 05/03/05 10:45am Chief Complaint and Reason for Visit Chief Complaint OVERDOSE Reason for Visit [id number] Abdominal pain Problems Active Problems Medical Problem Onset Date Status Abdominal pain Unknown Acute Anxiety and depression Unknown Acute Anxiety and depression Unknown Acute Overdose on Tylenol Unknown Acute Medications Current Home Medications Medication Dose Units Route Directions Days/Qty Instructions Start Date Hydroxyzine Hcl 25 Mg 25 Mg Oral Twice A Day for Anxiety 60 07/18/14 Fluoxetine Hcl 20 Mg 20 Mg Oral Daily for Depression 30 07/18/14 [ Control] 1 Tab Oral Daily for Prevention 07/18/14 Clonazepam 0.5 Mg 2.5 Mg Oral Twice A Day as needed for Anxiety Polyethylene Glycol 17 Gm 17 Gm Oral Daily for Constipation 07/18/14 Melatonin 10 Mg 10 Mg Oral Bedtime for Sleep Aid 07/18/14 Albuterol (Ventolin 17GM Hfa Inhaler*) 1 Puff 2 Puff Inhalation Every 6 Hours As Needed for Activity Induced Asthma INHALE 2 PUFFS 07/18/14 Past Home Medications Medication Directions Ordered Status Amoxicillin/Clavulanate Potassium 1 Tab Tablet, 1 Tab Oral Twice A Day Discontinued Meloxicam 7.5 Mg Tablet, 7.5 Mg Oral Twice A Day 08/23/12 Discontinued Social History Social History Problem Response Recorded Date/Time Smoking Status Current every day smoker 04/29/2016 11:33pm Tobacco Use Cigarettes 04/29/2016 11:33pm Alcohol Use none 04/29/2016 11:33pm Drug Use none 04/29/2016 11:33pm Query Response Start Date Stop Date Smoking Status Current every day smoker Hospital Discharge Instructions No hospital discharge instructions. Plan of Care Discharge Date 04/29/16 11:35pm Condition at Discharge Stable Instructions/Education Provided Acetaminophen Overdose (ED) Prescriptions See Medication Section Additional Instructions/Education Please follow-up with primary care doctor in 1-2 days Functional Status Query Response Date Recorded Iban Coma Scale Total 15 April 29, 2016 7:20pm Patient Behavior Anxious April 29, 2016 7:20pm Allergies, Adverse Reactions, Alerts Allergen Type Severity Reaction Status Last Updated NO KNOWN ALLERGIES Allergy Active 08/23/12 Immunizations Name Given Type Hx Diphtheria, Pertussis, Tetanus Vaccination Up To Date Historical Hx Influenza Vaccination Yes Historical Hx Pneumococcal Vaccination No Historical Hx Tetanus, Diphtheria Vaccination Y 2006 Historical Vital Signs Acute Vital Signs Vital Response Date/Time Temperature (Fahrenheit) 98.3 degrees F (97.6 - 99.5) 04/29/2016 11:30pm Temperature Source Temporal Artery 04/29/2016 11:30pm Pulse Rate (adult) 70 bpm (60 - 90) 04/29/2016 11:30pm Respiratory Rate 25 bpm (12 - 24) 04/29/2016 11:30pm Blood Pressure 106/58 mm Hg 04/29/2016 11:30pm O2 Sat by Pulse Oximetry 97 % (90 - 100) 04/29/2016 11:30pm Oxygen Delivery Method 04/29/2016 11:30pm Height 5 ft 5 in Weight 149 lb Body Mass Index 24.0 kg/m^2 Results Laboratory Results Test Name Result Units Flags Reference Collection Date/Time Result Date/ Time Comments White Blood Count 8.2 K/uL 4.8-10.8 04/29/2016 7:45pm 04/29/2016 8: 13pm Red Blood Count 4.67 M/uL 4.20-5.40 04/29/2016 7:45pm 04/29/2016 8: 13pm Hemoglobin 14.2 gm/dL 12.0-16.0 04/29/2016 7:45pm 04/29/2016 8:13pm Hematocrit 40.3 % 37.0-47.0 04/29/2016 7:45pm 04/29/2016 8:13pm Mean Corpuscular Volume 86.2 fL 81.0-99.0 04/29/2016 7:45pm 04/29/2016 8:13pm Mean Corpuscular Hemoglobin 30.4 pg 27.0-31.0 04/29/2016 7:45pm 2015 8:13pm Mean Corpuscular Hemoglobin Concent 35.3 g/dL 30.0-37.0 04/29/2016 7: 45pm 04/29/2016 8:13pm Red Cell Distribution Width 13.1 % 11.5-14.5 04/29/2016 7:45pm 2015 8:13pm Platelet Count 263 K/uL 130-400 04/29/2016 7:45pm 04/29/2016 8:13pm Mean Platelet Volume 8.3 fL 7.4-10.4 04/29/2016 7:45pm 04/29/2016 8: 13pm Neutrophils (%) (Auto) 75.6 % H 42-59 04/29/2016 7:45pm 04/29/2016 8: 13pm Lymphocytes (%) (Auto) 18.0 % L 34-50 04/29/2016 7:45pm 04/29/2016 8: 13pm Monocytes (%) (Auto) 4.7 % 4-5 04/29/2016 7:45pm 04/29/2016 8:13pm Eosinophils (%) (Auto) 1.2 % L 2-3 04/29/2016 7:45pm 04/29/2016 8:13pm Basophils (%) (Auto) 0.4 % 0.0-1.0 04/29/2016 7:45pm 04/29/2016 8:13pm Neutrophils # (Auto) 6.2 K/uL 2.0-6.9 04/29/2016 7:45pm 04/29/2016 8: 13pm Lymphocytes # (Auto) 1.5 K/uL 1.2-3.4 04/29/2016 7:45pm 04/29/2016 8: 13pm Monocytes # (Auto) 0.4 K/uL 0.1-0.6 04/29/2016 7:45pm 04/29/2016 8: 13pm Eosinophils # (Auto) 0.1 K/uL 0.0-0.7 04/29/2016 7:45pm 04/29/2016 8: 13pm Basophils # (Auto) 0.0 K/uL 0.0-0.2 04/29/2016 7:45pm 04/29/2016 8: 13pm Random Glucose 98 mg/dL 70-110 04/29/2016 7:50pm 04/29/2016 8:33pm Blood Urea Nitrogen 8 mg/dL 7-18 04/29/2016 7:50pm 04/29/2016 8:33pm Creatinine 0.7 mg/dL 0.5-1.0 04/29/2016 7:50pm 04/29/2016 8:33pm Sodium Level 138 mEq/L 135-145 04/29/2016 7:50pm 04/29/2016 8:33pm Potassium Level 3.6 mEq/L 3.5-5.0 04/29/2016 7:50pm 04/29/2016 8:33pm Chloride Level 103 mEq/L 98-107 04/29/2016 7:50pm 04/29/2016 8:33pm Carbon Dioxide Level 25.2 mEq/L 18-27 04/29/2016 7:50pm 04/29/2016 8: 33pm Calcium Level 8.9 mg/dL 8.6-10.3 04/29/2016 7:50pm 04/29/2016 8:33pm Total Protein 7.9 gm/dL 5.7-8.0 04/29/2016 7:50pm 04/29/2016 8:33pm Albumin 4.1 gm/dL 3.2-4.5 04/29/2016 7:50pm 04/29/2016 8:33pm Total Bilirubin 0.63 mg/dL 0.00-1.00 04/29/2016 7:50pm 04/29/2016 8: 33pm Aspartate Amino Transf (AST/SGOT) 22 U/L 15-37 04/29/2016 7:50pm 2015 8:33pm Alanine Aminotransferase (ALT/SGPT) 29 U/L 12-78 04/29/2016 7:50pm 04/2016 8:33pm Total Alkaline Phosphatase 69 U/L 47-119 04/29/2016 7:50pm 04/29/2016 8 :33pm Salicylates Level 1.0 mg/dl L 20.0-25.0 04/29/2016 7:50pm 04/29/2016 8: 33pm Acetaminophen Level 66.7 mcg/mL H 1030 04/29/2016 9:12pm 04/29/2016 9: 35pm Tricyclic Antidepressants NEGATIVE 04/29/2016 8:25pm 04/29/2016 8: 53pm Phencyclidine (PCP) Screen NEGATIVE 04/29/2016 8:25pm 04/29/2016 8: 53pm Barbiturates NEGATIVE 04/29/2016 8:25pm 04/29/2016 8:53pm Urine Marijuana (THC) Screen NEGATIVE 04/29/2016 8:25pm 04/29/2016 8:53pm Urine Opiates Screen NEGATIVE 04/29/2016 8:25pm 04/29/2016 8:53pm Urine Cocaine Level NEGATIVE 04/29/2016 8:25pm 04/29/2016 8:53pm Urine Amphetamines Screen NEGATIVE 04/29/2016 8:25pm 04/29/2016 8: 53pm Urine Methamphetamines Screen NEGATIVE 04/29/2016 8:25pm 2015 8:53pm Urine Benzodiazepines Screen NEGATIVE 04/29/2016 8:25pm 04/29/2016 8:53pm Urine Color YELLOW YELLOW 04/29/2016 8:25pm 04/29/2016 9:25pm Urine Appearance CLEAR CLEAR 04/29/2016 8:25pm 04/29/2016 9:25pm Urine Glucose (UA) NEGATIVE mg/dL NEGATIVE 04/29/2016 8:25pm 2015 9:25pm Urine Bilirubin NEGATIVE NEGATIVE 04/29/2016 8:25pm 04/29/2016 9: 25pm Urine Ketones TRACE mg/dL H NEGATIVE 04/29/2016 8:25pm 04/29/2016 9: 25pm Urine Specific [place] 1.025 1.010-1.025 04/29/2016 8:25pm 2015 9:25pm Urine Occult Blood NEGATIVE NEGATIVE 04/29/2016 8:25pm 04/29/2016 9: 25pm Urine pH 6.0 5.0-8.0 04/29/2016 8:25pm 04/29/2016 9:25pm Urine Protein 1+ (30 mg/dl) mg/dL H NEGATIVE 04/29/2016 8:25pm 2015 9:25pm Urine Urobilinogen 0.2 mg/dL E.U./dL 0.2-1.0 04/29/2016 8:25pm 2015 9:25pm Urine Nitrate NEGATIVE NEGATIVE 04/29/2016 8:25pm 04/29/2016 9:25pm Urine Leukocyte Esterase NEGATIVE NEGATIVE 04/29/2016 8:25pm 2015 9:25pm Urine RBC NEGATIVE /hpf 0 04/29/2016 8:25pm 04/29/2016 9:29pm Urine WBC NEGATIVE /hpf 0-4 04/29/2016 8:25pm 04/29/2016 9:29pm Urine Squamous Epithelial Cells 3-5 /hpf 0-1 04/29/2016 8:25pm 2015 9:29pm Urine Bacteria NEGATIVE NEGATIVE 04/29/2016 8:25pm 04/29/2016 9:29pm Urine HCG, Qualitative NEGATIVE NEG 04/29/2016 8:25pm 04/29/2016 9: 29pm Glomerular Filtration Rate Calc 117.2 mL/min 04/29/2016 7:50pm 2015 8:33pm Procedures No known history of procedures. Encounters Encounter Location Arrival/Admit Date Discharge/Depart Date Attending Provider Departed Emergency Room [place] 04/29/16 7:07pm 04/29/16 11:35pm ANAIS KNAPP DO Recent Diagnosis
--- OUTSIDE RECORDS SUMMARY | 2018-08-20 18:22 | XMS REPORT | Clinical Summary ---
Author Author Admin, [facility]REVOR Organization [facility] Address Unknown Phone Unavailable Allergies, Adverse Reactions, Alerts Allergy Name Reaction Description Start Date Severity Status Provider AMOXIL RASH Moderate Active Subhash Crowder DO Conditions or Problems Problem Name Problem Code Onset Date Status Entry Date Provider Comment Standard Description Annotate Medication side effect 995.29 Active Subhash Crowder DO Unspecified adverse effect of other drug, medicinal and biological substance Well adolescent exam V20.2 Active Sushil STACK Routine infant or child health check Dysmenorrhea 625.3 Active Sushil STACK Dysmenorrhea Depression/anxiety 300.4 Active Suhsil STACK Dysthymic disorder Asthma, exercise induced 493.81 Active Sushil STACK Exercise induced bronchospasm Medication List Medication Instructions Start Date Stop Date Generic Name [facility] Status Provider Patient Instruction VENTOLIN HFA 108 (90 BASE) MCG/ACT AERS 2 puff q 4 - 6 hrs PRN (ok with me to fill 2 today---one for home, one for school) ALBUTEROL SULFATE 33670117722 Active Sushil STACK Active ORTHO TRI-CYCLEN (28) 0.18/0.215/0.25 MG-35 MCG TABS 1 tablet PO daily 05/02 NORGESTIM-ETH ESTRAD TRIPHASIC 41985137765 Active Sushil STACK Active BACTRIM DS 800-160 MG TABS 1 daily SULFAMETHOXAZOLE- TRIMETHOPRIM 88973583827 Active Sushil STACK Active AZO CRANBERRY TABS 1 tab daily CRANBERRY-VITAMIN C- PROBIOTIC TABS 22883610781 No Longer Active Sushil STACK Active [id number] MISC AMOXICILL- CLARITHRO-LANSOPRAZ 76771108027 No Longer Active Sushil STACK Active ZYRTEC ALLERGY 10 MG CAPS 2 tablets daily until rash resolved CETIRIZINE HCL 36718445450 No Longer Active Sushil STACK Active PROZAC 20 MG CAPS 1 tab daily FLUOXETINE HCL 02974027454 Active Subhash Crowder DO Active MIRALAX POWD 17g 1 time daily POLYETHYLENE GLYCOL 3350 84136737624 Active Subhash Crowder DO Active ZYRTEC ALLERGY 10 MG CAPS 2 tablets daily until rash resolved ZYRTEC ALLERGY 10 MG CAPS CETIRIZINE HCL Inactive [id number] MISC AMOXICILL- CLARITHRO-LANSOPRAZ MISC 684894 [id number] Inactive AZO CRANBERRY TABS 1 tab daily AZO CRANBERRY TABS CRANBERRY-VITAMIN C-PROBIOTIC TABS Inactive Advance Directives Directive Description Start Date HOME PLACEMENT AGREEMENT CONSENT TO MEDICAL CARE Vital Signs Date Name Value Unit Range Description blood pressure, diastolic - 8462-4 63 mm[Hg] BP mays blood pressure, systolic - 8480-6 97 mm[Hg] BP sys height E&M - 8302-2 64.5 [in_us] Bdy height pulse rate E&M - 8867-4 68 /min Heart rate temperature E&M 98.2 [degF] Body temperature weight E&M - 3141-9 136 [lb_av] Weight Measured blood pressure, diastolic - 8462-4 54 mm[Hg] BP mays blood pressure, systolic - 8480-6 90 mm[Hg] BP sys height E&M - 8302-2 65 [in_us] Bdy height pulse rate E&M - 8867-4 90 /min Heart rate temperature E&M 99.1 [degF] Body temperature weight E&M - 3141-9 136 [lb_av] Weight Measured Encounters Code Encounter Date Provider Facility CPT-41041 Level 3 Est. Patient 16:25:11 CDT Sushil STACK [facility] CPT-00245 Level 3 Est. Patient 18:36:14 CDT Subhash Crowder DO [facility]
--- OUTSIDE RECORDS SUMMARY | 2018-08-20 18:22 | XMS REPORT | Continuity of Care Document ---
Author Author [facility] Organization [place] [facility] Address [facility] [address] [place] [address] Phone Unavailable Support Name Relationship Address Phone SHAVON HASTINGS MD Caregiver [address] [place] [address] Ar Jackosn M.D. Caregiver [address] [place] [address] PEARL BROWN Next Of Kin [address] [place] [address] Insurance Providers Payer Name Policy Number Subscriber Name Relationship [facility] [id number] William Brown 17 Child [employer] [facility] [id number] Rebecca Brown 16 Self / Same As Patient Advance Directives Directive Response Recorded Date/Time Do you have an Advanced Directive? No 05/03/05 10:45am Advance Directives No 08/23/12 7:10am Living Will No 08/23/12 7:10am Health Care Proxy No 07/18/14 1:49pm Power of Compliance Spec for Health Care No 08/23/12 7:10am Organ, Tissue, or Eye Donor No 08/23/12 7:10am Do you have a signed organ donor card? No 05/03/05 10:45am Problems Medical Problems Problem Onset Date Status Anxiety and depression Unknown Active Abdominal pain Unknown Active Anxiety and depression Unknown Active Medications Medication Dose Route Sig Days/Qty Instructions Order Date Discontinued Date Status Amoxicillin/Clavulanate Potassium 1 Tab PO TWICE A DAY 14 Qty 08/23/12 07/18/14 Discontinued Meloxicam 7.5 Mg PO TWICE A DAY 14 Qty 08/23/12 07/18/14 Discontinued Hydroxyzine HCl 25 Mg PO TWICE A DAY For ANXIETY 60 Qty 07/18/14 Active Fluoxetine HCl 20 Mg PO DAILY For DEPRESSION 30 Qty 07/18/14 Active [ Control] 1 Tab PO DAILY For PREVENTION 07/18/14 Active Clonazepam 2.5 Mg PO TWICE A DAY PRN ANXIETY 07/18/14 Active Polyethylene Glycol 17 Gm PO DAILY For CONSTIPATION 07/18/14 Active Melatonin 10 Mg PO BEDTIME For SLEEP AID 07/18/14 Active Albuterol (VENTOLIN 17GM HFA Inhaler*) 2 Puff INH EVERY 6 HOURS NEEDED For ACTIVITY INDUCED ASTHMA INHALE 2 PUFFS 07/18/14 Active Social History Social History Problem Response Recorded Date/Time Smoking Status Never smoker 08/23/2012 2:45am Query Response Start Date Stop Date Smoking Status Never smoker Hospital Discharge Instructions No hospital discharge instructions. Plan of Care No plan of care. Functional Status Query Response Date Recorded Iban Coma Scale Total 15 July 18, 2014 2:02pm Patient Behavior Anxious Suspicious July 18, 2014 2:02pm Allergies, Adverse Reactions, Alerts Allergen Type Severity Reaction Status Last Updated NO KNOWN ALLERGIES Allergy Active 08/23/12 Immunizations Name Given Type Hx Diphtheria, Pertussis, Tetanus Vaccination Up To Date Historical Hx Influenza Vaccination Y 04/2014 Historical Hx Pneumococcal Vaccination No Historical Hx Tetanus, Diphtheria Vaccination Y 2005 Historical Vital Signs Acute Vital Signs Vital Response Date/Time Temperature (Fahrenheit) 98.1 degrees F (97.6 - 99.5) Temperature Source Temporal Artery Pulse Rate (Adolescent 12-19yrs) 98 bpm (56 - 106) Respiratory Rate (Adolescent 12-19yrs) 18 bpm (15 - 20) Blood Pressure / Blood Pressure Systolic (Adolescent 12-19yrs) 120 mm Hg (115 - 120) Blood Pressure Diastolic (Adolescent 12-19yrs) 55 mm Hg (60 - 65) O2 Sat by Pulse Oximetry 98 % (95 - 100) Oxygen Delivery Method Pain Intensity 3 Pain Location Body Site Modifier Pain Description Cramping Pain Duration > 6 Hours Height 5 ft 6 in Weight 150 lb Body Mass Index 24.0 kg/m^2 Results Test Source Date Result Interp. Ref. Range Comments Alanine Aminotransferase (ALT/SGPT) July 18, 2014 2:40pm 17 U/L N 12 -78 Albumin July 18, 2014 2:40pm 3.0 gm/dL L 3.2-4.5 Aspartate Amino Transf (AST/SGOT) July 18, 2014 2:40pm 14 U/L L 15- 37 Basophils # (Auto) July 18, 2014 2:40pm 0.1 K/uL N 0.0-0.2 Basophils (%) (Auto) July 18, 2014 2:40pm 1.4 % H 0.0-1.0 Blood Urea Nitrogen July 18, 2014 2:40pm 14 mg/dL N 7-18 Calcium Level July 18, 2014 2:40pm 8.4 mg/dL N 8.4-10.2 Carbon Dioxide Level July 18, 2014 2:40pm 27.6 mEq/L H 18-27 Chloride Level July 18, 2014 2:40pm 105 mEq/L N 98-107 Cholesterol Level October 08, 2013 9:51am 146 mg/dL N 120-200 Creatinine July 18, 2014 2:40pm 0.7 mg/dL N 0.4-0.9 Eosinophils # (Auto) July 18, 2014 2:40pm 0.2 K/uL N 0.0-0.7 Eosinophils (%) (Auto) July 18, 2014 2:40pm 4.5 % H 0.0-2.0 Glomerular Filtration Rate Calc July 18, 2014 2:40pm 120.2 mL/min N 60.0-128.0 HDL Cholesterol October 08, 2013 9:51am 70 mg/dL H 35-60 Hematocrit July 18, 2014 2:40pm 34.2 % L 37.0-47.0 Hemoglobin July 18, 2014 2:40pm 12.4 gm/dL N 12.0-16.0 LDL Cholesterol October 08, 2013 9:51am 67 mg/dL N 0-130 Lipase July 18, 2014 2:40pm 174 U/L N 65-230 Lymphocytes # (Auto) July 18, 2014 2:40pm 1.9 K/uL N 1.2-3.4 Lymphocytes (%) (Auto) July 18, 2014 2:40pm 39.5 % N 20.5-51.1 Mean Corpuscular Hemoglobin July 18, 2014 2:40pm 30.1 pg N 27.0- 31.0 Mean Corpuscular Hemoglobin Concent July 18, 2014 2:40pm 36.2 g/dL N 30.0-37.0 Mean Corpuscular Volume July 18, 2014 2:40pm 83.1 fL N 81.0-99.0 Mean Platelet Volume July 18, 2014 2:40pm 7.7 fL N 7.4-10.4 Monocytes # (Auto) July 18, 2014 2:40pm 0.2 K/uL N 0.1-0.6 Monocytes (%) (Auto) July 18, 2014 2:40pm 4.9 % N 1.7-9.3 Neutrophils # (Auto) July 18, 2014 2:40pm 2.4 K/uL N 2.0-6.9 Neutrophils (%) (Auto) July 18, 2014 2:40pm 49.7 % N 42.2-75.2 Platelet Count July 18, 2014 2:40pm 234 K/uL N 130-400 Potassium Level July 18, 2014 2:40pm 3.5 mEq/L N 3.5-5.0 Random Glucose July 18, 2014 2:40pm 133 mg/dL H 70-110 Red Blood Count July 18, 2014 2:40pm 4.11 M/uL L 4.20-5.40 Red Cell Distribution Width July 18, 2014 2:40pm 9.9 % L 11.5-14.5 Sodium Level July 18, 2014 2:40pm 142 mEq/L N 135-145 Thyroid Stimulating Hormone (TSH) October 08, 2013 9:51am 1.24 uIU/ml N 0.36-3.74 Thyroxine (T4) October 08, 2013 9:51am 8.0 UG/DL N 4.8-13.9 Total Alkaline Phosphatase July 18, 2014 2:40pm 68 U/L N 50-162 Total Bilirubin July 18, 2014 2:40pm 0.20 mg/dL N 0.00-1.00 Total Protein July 18, 2014 2:40pm 6.2 gm/dL N 5.7-8.0 Triglycerides Level October 08, 2013 9:51am 44 mg/dL N 30-200 Urine Appearance July 18, 2014 3:10pm Clear - Urine Bacteria July 18, 2014 3:10pm Trace - Urine Bilirubin July 18, 2014 3:10pm Negative - Urine Color July 18, 2014 3:10pm Lt. yellow - Urine Glucose (UA) July 18, 2014 3:10pm Negative mg/dL - Urine HCG, Qualitative July 18, 2014 3:10pm Negative - Urine Ketones July 18, 2014 3:10pm Trace mg/dL H - Urine Leukocyte Esterase July 18, 2014 3:10pm Negative - Urine Mucus July 18, 2014 3:10pm Few H - Urine Nitrate July 18, 2014 3:10pm Negative - Urine Occult Blood July 18, 2014 3:10pm Negative - Urine Protein July 18, 2014 3:10pm Negative mg/dL - Urine RBC July 18, 2014 3:10pm Negative /hpf - Urine Specific [place] July 18, 2014 3:10pm 1.025 N 1.010-1.025 Urine Squamous Epithelial Cells July 18, 2014 3:10pm 15-20 /hpf - Urine Urobilinogen July 18, 2014 3:10pm 0.2 E.U./dL - Urine WBC July 18, 2014 3:10pm Negative /hpf - Urine pH July 18, 2014 3:10pm 6.5 - White Blood Count July 18, 2014 2:40pm 4.9 K/uL N 4.8-10.8 Urine Culture Urine,Clean Catch May 03, 2005 10:56am NO GROWTH AFTER 48 HOURS Procedures No known history of procedures. Encounters Encounter Location Date/Time Departed Emergency Room [place] 07/18/14 1:56pm Recent Diagnosis
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
--- OUTSIDE RECORDS SUMMARY | 2018-08-20 18:23 | XMS REPORT ---
Author Author [facility] Medical Staff Organization [facility] Address [address] [place] [address] Phone [phone] Summary purpose TRANSITION OF CARE AUTO GENERATION Chief Complaint and Reason for Visit No authorized Reason for Visit (Admitting Diagnosis) is available for this visit. Problem list No authorized problems tracked for continuity of care are available for this visit. Encounters No authorized problems tracked for encounter diagnoses are available for this visit. Medications Home Medications Medication Directions Started Status Source clonazepam 0.5 mg tablet 0.5-1 tablet oral PRN 2 Times A Day for panic Current Medication bottle label Vistaril 25 mg capsule 1-2 capsule oral As Needed Current Medication bottle label fluoxetine 20 mg capsule 1 capsule oral 1 Daily Current Medication bottle label Ortho Tri-Cyclen (28) 0.18 mg(7)/0.215 mg(7)/0.25 mg(7)-35 mcg tablet 1 tablet oral 1 Daily for control Current Medication bottle label Ventolin HFA 90 mcg/actuation aerosol inhaler 2 puff inhl See Medication Notes Every 4-6 hours as needed Current Medication bottle label Allergies, adverse reactions, alerts Allergen Category Ingredient Status Reaction Severity Onset Amoxicillin Drug Allergy Amoxicillin Confirmed or Verified Immunizations No immunizations recorded for this patient visit Relevant diagnostic tests and/or laboratory data RESULTS Drug Screen In House [id number]:16:00 Result Normal Range Units Amphetamine Negative Negative Barbiturates AB Positive Negative Benzodiazepines AB Positive Negative Cannabinoids Negative Negative *Triage TOXis a medical drug screen to be used only for assessment and treatment of patients. This drug screen cannot be used for employment or legal purposes. Cocaine Negative Negative Mamp/MDMA Negative Negative Methadone Negative Negative Opiates Negative Negative Phencyclidine Negative Negative Tricyclic Antidepressants AB Positive Negative Therapeutic Drug Monitoring :43:00 Result Normal Range Units Acetaminophen L 0.0 10.0-30.0 ug/ml Salicylate L 1.0 2.0-20.0 mg/dl Chemistry [id number]:43:00 Result Normal Range Units Sodium 140 134-145 mEq/l Potassium 3.7 3.5-5.1 mEq/l Chloride 103 98-107 mEq/l CO2 27.4 22-28 mEq/l Glucose H 122 70-105 mg/dl BUN 10 7-18 mg/dl Creatinine 0.84 0.6-1.0 mg/dl Calcium 9.1 8.4-10.2 mg/dl TP - Total Protein 7.7 6.0-8.3 g/dl Albumin 3.8 3.5-5 g/dl Bilirubin - Total 0.3 0.1-1.0 mg/dl AST 15 10-42 IU/L ALT 15 12-65 IU/L ALP 58 39-101 IU/L Osmolality L 279.7 280-300 mOsm/L Albumin/Globulin Ratio 1.0 0-8 Anion GAP 9.6 8-16 BUN/Creatinine Ratio 11.9 10-20 Estimated GFR 90 >=60 mL/min/1.7 Hematology [id number]:43:00 Result Normal Range Units WBC 7.7 4.8-10.8 103/uL RBC 4.4 4.2-5.4 106/uL HGB 12.6 12.0-16.0 g/dl HCT 38.0 36.9-47.0 % MCV 85.6 81-99 FL MCH 28.4 27-31 pg MCHC 33.2 33-37 g/dl RDW 12.5 11.5-15.5 % PLT 351 130-400 103/uL MPV 9.5 7.3-10.4 FL Neutro % 63.6 40-70 % Lymph % 28.4 20-40 % Barber % 4.7 0-10.0 % Eos % 2.8 0-7.0 % Baso % 0.5 0-2 % Neutro # 4.9 1.5-7.5 103/uL Lymph # 2.2 0.9-4.0 103/uL Barber # 0.4 0-0.8 103/uL Eos # 0.2 0-0.6 103/uL Baso # 0.0 0-0.1 103/uL Special Chemistry [id number]:43:00 Result Normal Range Units ETOH < 3 0-5 mg/dl Radiology Results :43:00 Result Normal Range Units MPV 9.5 7.3-10.4 FL History of procedures No procedures recorded for this patient visit. Functional status Functional Status Finding Observation Time Muscle Strength RUE 5 ROM full resist :18 Muscle Strength RLE 5 ROM full resist :18 Muscle Strength LUE 5 ROM full resist :18 Muscle Strength LLE 5 ROM full resist :18 Diet regular : Abdomen Appearance round : Abdomen non-tender :18 Tafoya no :18 Urination normal :18 Quality sym/unlabored : Cough absent :18 Secretions no :18 Airway natural : Chest Tube no :18 Oxygen no : Temp >100.4 no :18 Temp <96.8 no :18 Chills with rigors no : HR > 90bpm yes :18 Respirations > 20 no :18 Systolic <90 no :18 headache stiff neck no :18 Rapid Resp no :18 Nursing Note Called et advised [facility] at [facility] that pt had left [facility]. :13 Vital signs Type Value Date Respiration Rate 20breaths per minute :03 Pulse 88beats per minute :03 Oxygen Saturation 94% :03 BP Systolic 120mmHg :03 BP Diastolic 76mmHg :03 Temperature 98.4F :03 Weight 158LB :13 Social history Type Value Smoking Status CURRENT EVERY DAY SMOKER Treatment Plan No treatment plan text is available for this visit. Hospital discharge instructions Dismissal Condition good Disposition on DC transfered Comment: to [facility] in [place] Flu Vac 2013
--- OUTSIDE RECORDS SUMMARY | 2018-08-20 18:23 | XMS REPORT | Clinical Summary ---
Author Author Admin, [facility] Address Unknown Phone Unavailable Allergies, Adverse Reactions, Alerts Allergy Name Reaction Description Start Date Severity Status Provider AMOXIL RASH Moderate Active Subhash Crowder DO Conditions or Problems Problem Name Problem Code Onset Date Status Entry Date Provider Comment Standard Description Annotate Medication side effect 995.29 Active Subhash Crowder DO Unspecified adverse effect of other drug, medicinal and biological substance Medication List Medication Instructions Start Date Stop Date Generic Name NDC Status Provider Patient Instruction ZYRTEC ALLERGY 10 MG CAPS 2 tablets daily until rash resolved CETIRIZINE HCL 44179036194 Active Subhash Crowder DO Active [id number] MISC AMOXICILL-CLARITHRO- LANSOPRAZ 00451805799 Active Subhash Crowder DO Active PROZAC 20 MG CAPS 1 tab daily FLUOXETINE HCL 42680592675 Active Subhash Crowder DO Active MIRALAX POWD 17g 1 time daily POLYETHYLENE GLYCOL 3350 15773883646 Active Subhash Crowder DO Active AZO CRANBERRY TABS 1 tab daily CRANBERRY-VITAMIN C-PROBIOTIC TABS 37628282714 Active Subhash Crowder DO Active Advance Directives Directive Description Start Date HOME PLACEMENT AGREEMENT CONSENT TO MEDICAL CARE Vital Signs Date Name Value Unit Range Description blood pressure, diastolic - 8462-4 54 mm[Hg] BP mays blood pressure, systolic - 8480-6 90 mm[Hg] BP sys height E&M - 8302-2 65 [in_us] Bdy height pulse rate E&M - 8867-4 90 /min Heart rate temperature E&M 99.1 [degF] Body temperature weight E&M - 3141-9 136 [lb_av] Weight Measured Encounters Code Encounter Date Provider Facility CPT-19374 Level 3 Est. Patient 18:36:14 CDT Subhash Crowder DO [facility]
--- OUTSIDE RECORDS SUMMARY | 2018-08-20 18:23 | XMS REPORT | Clinical Summary ---
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 Sushil STACK Exercise induced bronchospasm Medication List Medication Instructions Start Date Stop Date Generic Name [facility] Status Provider Patient Instruction VENTOLIN HFA 108 (90 BASE) MCG/ACT AERS 2 puff q 4 - 6 hrs PRN (ok with me to fill 2 today---one for home, one for school) ALBUTEROL SULFATE 46981740595 Active Sushil STACK Active ORTHO TRI-CYCLEN (28) 0.18/0.215/0.25 MG-35 MCG TABS 1 tablet PO daily 05/02 NORGESTIM-ETH ESTRAD TRIPHASIC 48427401337 Active Sushil STACK Active BACTRIM DS 800-160 MG TABS 1 daily SULFAMETHOXAZOLE- TRIMETHOPRIM 52415754690 Active Sushil STACK Active AZO CRANBERRY TABS 1 tab daily CRANBERRY-VITAMIN C- PROBIOTIC TABS 94838292820 No Longer Active Sushil STACK Active [id number] MISC AMOXICILL- CLARITHRO-LANSOPRAZ 25208030615 No Longer Active Sushil STACK Active ZYRTEC ALLERGY 10 MG CAPS 2 tablets daily until rash resolved CETIRIZINE HCL 58708697436 No Longer Active Sushil STACK Active PROZAC 20 MG CAPS 1 tab daily FLUOXETINE HCL 17517660546 Active Subhash rCowder DO Active MIRALAX POWD 17g 1 time daily POLYETHYLENE GLYCOL 3350 94677757764 Active Subhash Crowder DO Active ZYRTEC ALLERGY 10 MG CAPS 2 tablets daily until rash resolved ZYRTEC ALLERGY 10 MG CAPS CETIRIZINE HCL Inactive [id number] MISC AMOXICILL- CLARITHRO-LANSOPRAZ MISC 959838 [id number] Inactive AZO CRANBERRY TABS 1 tab daily AZO CRANBERRY TABS CRANBERRY-VITAMIN C-PROBIOTIC TABS Inactive Advance Directives Directive Description Start Date HOME PLACEMENT AGREEMENT CONSENT TO MEDICAL CARE Vital Signs Date Name Value Unit Range Description blood pressure, diastolic 63 mm[Hg] BP mays blood pressure, systolic 97 mm[Hg] BP sys height E&M 64.5 [in_us] Bdy height pulse rate E&M 68 /min Heart rate temperature E&M 98.2 [degF] Body temperature weight E&M 136 [lb_av] Weight Measured blood pressure, diastolic 54 mm[Hg] BP mays blood pressure, systolic 90 mm[Hg] BP sys height E&M 65 [in_us] Bdy height pulse rate E&M 90 /min Heart rate temperature E&M 99.1 [degF] Body temperature weight E&M 136 [lb_av] Weight Measured Encounters Code Encounter Date Provider Facility CPT-51490 Level 3 Est. Patient 16:25:[address] [facility] CPT-05864 Level 3 Est. Patient 18:36:14 CDT Subhash Crowder DO [facility] Procedures Code Procedure Name Date Entry Date Standard Description CPT-03550 Fluzone Quadrivalent Intramuscular Suspension 0.5 ML 17: 11:14 CDT
--- OUTSIDE RECORDS SUMMARY | 2018-08-20 18:23 | XMS REPORT ---
Author [facility] Medical Staff Organization [facility] Address [address], [place] [address] Phone [phone] Summary purpose TRANSITION OF CARE AUTO GENERATION Chief Complaint and Reason for Visit Admit Diagnosis 1 HEADACHE Problem list No authorized problems tracked for [...] Relevant diagnostic tests and/or laboratory data RESULTS Routine Urinalysis :30:00 Result Normal Range Units Color YELLOW Clarity Clear Specific [place] 1.015 1.003-1.035 pH 6.0 4.5-8.0 Glucose NEGATIVE Bilirubin NEGATIVE Ketones NEGATIVE Protein NEGATIVE Urobilinogen 0.2 0-0.2 E.U./dL Nitrites NEGATIVE Blood NEGATIVE Leukocytes NEGATIVE WBCs 0-5 RBCs No RBC's Seen. Squamous Epithelial Few Bacteria Rare Amount Drug Screen In House :30:00 Result Normal Range Units Amphetamine Negative Negative Barbiturates Negative Negative Benzodiazepines AB Positive Negative Cannabinoids Negative Negative *Triage TOXis a medical drug screen to be used only for assessment and treatment of patients. This drug screen cannot be used for employment or legal purposes. Cocaine Negative Negative Mamp/MDMA Negative Negative Methadone Negative Negative Opiates Negative Negative Phencyclidine Negative Negative Tricyclic Antidepressants Negative Negative Chemistry :30:00 Result Normal Range Units Sodium 143 134-145 mEq/l Potassium 4.1 3.5-5.1 mEq/l Chloride 105 98-107 mEq/l CO2 26.5 22-28 mEq/l Glucose 88 70-105 mg/dl BUN 8 7-18 mg/dl Creatinine 0.81 0.6-1.0 mg/dl Calcium 9.4 8.4-10.2 mg/dl TP - Total Protein H 8.5 6.0-8.3 g/dl Albumin 4.0 3.5-5 g/dl Bilirubin - Total 0.3 0.1-1.0 mg/dl AST 16 10-42 IU/L ALT 17 12-65 IU/L ALP 55 55-179 IU/L Osmolality 282.7 280-300 mOsm/L Albumin/Globulin Ratio 0.9 0-8 Anion GAP 11.5 8-16 BUN/Creatinine Ratio L 9.9 10-20 Estimated GFR 96 >=60 mL/min/1.7 Hematology [id number]:30:00 Result Normal Range Units WBC 7.0 4.8-10.8 103/uL RBC 4.5 4.2-5.4 106/uL HGB 13.1 12.0-16.0 g/dl HCT 39.2 36.9-47.0 % MCV 87.3 81-99 FL MCH 29.2 27-31 pg MCHC 33.4 33-37 g/dl RDW 12.8 11.5-15.5 % PLT 268 130-400 103/uL MPV 9.4 7.3-10.4 FL Neutro % H 76.6 40-70 % Lymph % L 17.1 20-40 % [place] % 3.3 0-10.0 % Eos % 2.7 0-7.0 % Baso % 0.3 0-2 % Neutro # 5.3 1.5-7.5 103/uL Lymph # 1.2 0.9-4.0 103/uL [place] # 0.2 0-0.8 103/uL Eos # 0.2 0-0.6 103/uL Baso # 0.0 0-0.1 103/uL Body Fluid [id number]:30:00 Result Normal Range Units pH 6.0 4.5-8.0 Radiology Results [id number]:17:00 CT HEAD W/O CONT PACs Image DATE OF EXAM: 2013 [id number] HEAD WO CONTRAST : RADIOLOGY REPORT DATE OF SERVICE:05/26/2014 HISTORY:Headache. NONCONTRAST CT HEAD 1409 HOURS Axial scans were obtained at 5 mm intervals. No contrast was administered. The ventricles are normal. There is no mass or midline shift. There is no hemorrhage or infarction. There are no unusual intra- or extra-axial fluid collections or pathological intracranial calcifications. The cerebellum and brain stem are normal. The bony calvarium is normal. The visualized sinuses and mastoids are clear. IMPRESSION:Negative CT head. MD IVANA Kingsley/joann05/26/2014 14:21:00 / 05/26/2014 14:59:01 cc:Dr. Sebastien Sampson family doctor This document has been electronically Signed by: On: DATE OF EXAM: 2013 [id number] HEAD WO CONTRAST : RADIOLOGY REPORT DATE OF SERVICE:05/26/2014 HISTORY:Headache. NONCONTRAST CT HEAD 1409 HOURS Axial scans were obtained at 5 mm intervals. No contrast was administered. The ventricles are normal. There is no mass or midline shift. There is no hemorrhage or infarction. There are no unusual intra- or extra-axial fluid collections or pathological intracranial calcifications. The cerebellum and brain stem are normal. The bony calvarium is normal. The visualized sinuses and mastoids are clear. IMPRESSION:Negative CT head. MD IVANA Kingsley/05/26/2014 14:21: / 05/26/2014 14:59:01 cc:Dr. Sebastien Sampson family doctor This document has been electronically Signed by: On: DATE OF EXAM: 2013 [id number] HEAD WO CONTRAST : RADIOLOGY REPORT DATE OF SERVICE:05/26/2014 HISTORY:Headache. NONCONTRAST CT HEAD 1409 HOURS Axial scans were obtained at 5 mm intervals. No contrast was administered. The ventricles are normal. There is no mass or midline shift. There is no hemorrhage or infarction. There are no unusual intra- or extra-axial fluid collections or pathological intracranial calcifications. The cerebellum and brain stem are normal. The bony calvarium is normal. The visualized sinuses and mastoids are clear. IMPRESSION:Negative CT head. MD IVANA Kingsley/joann05/26/2014 14:21: / 05/26/2014 14:59:01 cc:Dr. Sebastien Sampson family doctor This document has been electronically Signed by: DM DUPREE On: 20133:17P Result Amended on 2014-05-26 at 15:05:49. Previous status was [place]. Result Amended on 2014-05-26 at 15:17:35. Previous status was [place]. [id number]:30:00 Result Normal Range Units MPV 9.4 7.3-10.4 FL History of procedures Procedure Code Code Type Description Date Performed Performing Physician 28719 CPT-4 COMPLETE CBC W/AUTO DIFF WBC 05-26-2014 ROBERT TORRES 78230 CPT-4 COMPREHEN METABOLIC PANEL 05-26-2014 ROBERT TORRES 89752 CPT-4 URINALYSIS, AUTO W/SCOPE 05-26-2014 ROBERT TORRES 53657 CPT-4 DRUG SCRN 1+ CLASS NONCHROMO 05-26-2014 ROBERT TORRES 12879 CPT-4 CT HEAD/BRAIN W/O DYE 05-26-2014 ROBERT TORRES 48610 CPT-4 ROUTINE VENIPUNCTURE 05-26-2014 ROBERT TORRES 07601 CPT-4 EMERGENCY DEPT VISIT 05-26-2014 ROBERT TORRES 61339 CPT-4 EMERGENCY DEPT VISIT 05-26-2014 ROBERT TORRES Functional status No functional or cognitive status observations are available for this visit. Vital signs Type Value Date Respiration Rate 20breaths per minute :45 Pulse 79beats per minute :45 Oxygen Saturation 98% 91-87-735984:45 BP Systolic 95mmHg :45 BP Diastolic 53mmHg :45 Temperature 98.1F :45 Height 66inches :10 Weight 139LB 22-51-784990:10 Social history Type Value Smoking Status FORMER SMOKER Treatment Plan No treatment plan text is available for this visit. Hospital discharge instructions Dismissal Condition good Disposition on DC home DC Inst/Educ Give yes Med/Side Effects Rev yes
--- OUTSIDE RECORDS SUMMARY | 2018-08-20 18:23 | XMS REPORT | Clinical Summary ---
Author Author Admin, TREVOR Organization [facility] Address Unknown Phone Unavailable Allergies, Adverse [...] Instructions Start Date Stop Date Generic Name [facility] Status Provider Patient Instruction VENTOLIN HFA 108 (90 BASE) MCG/ACT AERS 2 puff q 4 - 6 hrs PRN (ok with me to fill 2 today---one for home, one for school) ALBUTEROL SULFATE [id number] Active Sushil STACK Active ORTHO TRI-CYCLEN (28) 0.18/0.215/0.25 MG-35 MCG TABS 1 tablet PO daily 05/02 NORGESTIM-ETH ESTRAD TRIPHASIC 63226435176 Active Sushil STACK Active BACTRIM DS 800-160 MG TABS 1 daily SULFAMETHOXAZOLE- TRIMETHOPRIM 47295867107 Active Sushil STACK Active AZO CRANBERRY TABS 1 tab daily CRANBERRY-VITAMIN C- PROBIOTIC TABS 91263517277 No Longer Active Sushil STACK Active [id number]-ANFZYMTSW-IGHXRLZCT MISC AMOXICILL- CLARITHRO-LANSOPRAZ 06901588990 No Longer Active Sushil STACK Active ZYRTEC ALLERGY 10 MG CAPS 2 tablets daily until rash resolved CETIRIZINE HCL 01387734495 No Longer Active Sushil STACK Active PROZAC 20 MG CAPS 1 tab daily FLUOXETINE HCL 27849743791 Active Subhash Crowder DO Active MIRALAX POWD 17g 1 time daily POLYETHYLENE GLYCOL 3350 22228180573 Active Subhash Crowder DO Active ZYRTEC ALLERGY 10 MG CAPS 2 tablets daily until rash resolved ZYRTEC ALLERGY 10 MG CAPS CETIRIZINE HCL Inactive ZKUSLONNB-UMLVIDNEG-YMSPXTPUD MISC AMOXICILL- CLARITHRO-LANSOPRAZ MISC 089944 [id number]-[id number]-TITKYQJHZ Inactive AZO CRANBERRY TABS 1 tab daily [...] Measured Encounters Code Encounter Date Provider Facility CPT-62458 Level 3 Est. Patient 16:25:11 CDT Sushil STACK [facility] CPT-85182 Level 3 Est. Patient 18:36:14 CDT Subhash Crowder DO [facility]
--- OUTSIDE RECORDS SUMMARY | 2018-08-20 18:23 | XMS REPORT ---
Author Author [facility] Medical Staff Organization [facility] Address [address], [place] [address] Phone [phone] Summary purpose TRANSITION OF CARE AUTO GENERATION [...] visit Relevant diagnostic tests and/or laboratory data No authorized results are available for this patient visit History of procedures No procedures recorded for this patient visit. Functional status No functional or cognitive status observations are available for this visit. Vital signs No authorized vital signs are available for this visit. Social history No Social History or smoking status observations were recorded for this visit. ( Unknown if ever smoked.) Treatment Plan No treatment plan text is available for this visit. Hospital discharge instructions No discharge instruction text is available for this visit.
--- OUTSIDE RECORDS SUMMARY | 2018-08-20 18:24 | XMS REPORT ---
Author Author [facility] [employer] [facility] Medical Staff Organization [facility] Address [address] [place] [address], [place] [address] Phone [phone] Summary purpose TRANSITION OF CARE AUTO GENERATION [...]
--- OUTSIDE RECORDS SUMMARY | 2018-08-20 18:24 | XMS REPORT ---
Author Author [facility] [facility] Medical Staff Organization [facility] Address [address], [place] [address] Phone [phone] Summary purpose TRANSITION OF CARE AUTO GENERATION [...] Range Units Color YELLOW Clarity Clear Specific [place] 1.015 1.003-1.035 pH 6.0 4.5-8.0 Glucose NEGATIVE [...] 10-20 Estimated GFR 96 >=60 mL/min/1.7 Hematology 96-25-003234:30:00 Result Normal Range Units WBC 7.0 4.8-10.8 103/uL RBC 4.5 4.2-5.4 106/uL HGB 13.1 12.0-16.0 g/dl HCT 39.2 36.9-47.0 % MCV 87.3 81-99 FL MCH 29.2 27-31 pg MCHC 33.4 33-37 g/dl RDW 12.8 11.5-15.5 % PLT 268 130-400 103/uL MPV 9.4 7.3-10.4 FL Neutro % H 76.6 40-70 % Lymph % L 17.1 20-40 % [place] % 3.3 0-10.0 % Eos % 2.7 0-7.0 % Baso % 0.3 0-2 % Neutro # 5.3 1.5-7.5 103/uL Lymph # 1.2 0.9-4.0 103/uL [place] # 0.2 0-0.8 103/uL Eos # 0.2 0-0.6 103/uL Baso # 0.0 0-0.1 103/uL Body Fluid 33-34-221975:30:00 Result Normal Range Units pH 6.0 4.5-8.0 Radiology Results 05-26-174675:17:00 CT HEAD W/O CONT PACs Image DATE OF EXAM: 2013 [id number] HEAD WO CONTRAST : RADIOLOGY REPORT DATE [...] clear. IMPRESSION:Negative CT head. MD IVANA Kingsley/05/26/2014 14:21:00 / 05/26/2014 14:59:01 cc:Dr. Sebastien Sampson family doctor This document has been electronically Signed by: On: DATE OF EXAM: 2013 [id number] HEAD WO CONTRAST : RADIOLOGY REPORT DATE [...] Signed by: On: DATE OF EXAM: 2013 [id number] HEAD WO CONTRAST : RADIOLOGY REPORT DATE [...] on 2014-05-26 at 15:05:49. Previous status was [place]. Result Amended on 2014-05-26 at 15:17:35. Previous status was [place]. :30:00 Result Normal Range Units MPV 9.4 7.3-10.4 FL History of procedures No procedures recorded for this patient visit. Functional status No functional or cognitive status observations are available for this visit. Vital signs Type Value Date Respiration Rate 20breaths per minute :45 Pulse 79beats per minute :45 Oxygen Saturation 98% :45 BP Systolic 95mmHg :45 BP Diastolic 53mmHg :45 Temperature 98.1F :45 Height 66inches :10 Weight 139LB :10 Social history Type Value Smoking Status FORMER SMOKER Treatment Plan No treatment plan text is available for this visit. Hospital discharge instructions Dismissal Condition good Disposition on DC home DC Inst/Educ Give yes Med/Side Effects Rev yes
--- OUTSIDE RECORDS SUMMARY | 2018-08-20 18:24 | XMS REPORT ---
Author [facility] [employer] [facility] Medical Staff Organization [facility] Address [address] [place], [place] [address] Phone [phone] Summary purpose TRANSITION OF CARE AUTO GENERATION Chief Complaint and Reason for Visit Admit Diagnosis 1 SUICIDE IDEATION Problem list No authorized problems tracked for [...] laboratory data RESULTS Drug Screen In House 52-92-212427:16:00 Result Normal Range Units Amphetamine Negative Negative [...] ug/ml Salicylate L 1.0 2.0-20.0 mg/dl Chemistry :43:00 Result Normal Range Units Sodium 140 134-145 [...] 10-20 Estimated GFR 90 >=60 mL/min/1.7 Hematology [id number]:43:00 Result Normal Range Units WBC 7.7 4.8-10.8 103/uL RBC 4.4 4.2-5.4 106/uL HGB 12.6 12.0-16.0 g/dl HCT 38.0 36.9-47.0 % MCV 85.6 81-99 FL MCH 28.4 27-31 pg MCHC 33.2 33-37 g/dl RDW 12.5 11.5-15.5 % PLT 351 130-400 103/uL MPV 9.5 7.3-10.4 FL Neutro % 63.6 40-70 % Lymph % 28.4 20-40 % [place] % 4.7 0-10.0 % Eos % 2.8 0-7.0 % Baso % 0.5 0-2 % Neutro # 4.9 1.5-7.5 103/uL Lymph # 2.2 0.9-4.0 103/uL [place] # 0.4 0-0.8 103/uL Eos # 0.2 0-0.6 103/uL Baso # 0.0 0-0.1 103/uL Special Chemistry [id number]:43:00 Result Normal Range Units ETOH < 3 0-5 mg/dl Radiology Results [id number]:43:00 Result Normal Range Units MPV 9.5 7.3-10.4 FL History of procedures Procedure Code Code Type Description Date Performed Performing Physician 83414 CPT-4 COMPREHEN METABOLIC PANEL 10-21-2014 ROBERT TORRES 12307 CPT-4 ANALGESICS NON-OPIOID 1 OR 2 10-21-2014 ROBERT BRIAN 69256 CPT-4 ANALGESICS NON-OPIOID 1 OR 2 10-21-2014 ROBERT TORRES 32168 CPT-4 DRUG SCREEN NON TLC DEVICES 10-21-2014 ROBERT BRIAN 15866 CPT-4 DRUG SCREEN QUANTALCOHOLS 10-21-2014 ROBERT BRIAN 81604 CPT-4 ROUTINE VENIPUNCTURE 10-21-2014 ROBERT BRIAN 74264 CPT-4 EMERGENCY DEPT VISIT 10-21-2014 ROBERT BRIAN 76600 CPT-4 EMERGENCY DEPT VISIT 10-21-2014 ROBERT TORRES Functional status Functional Status Finding Observation Time Muscle Strength RUE 5 ROM full resist 24-61-774032:18 Muscle Strength RLE 5 ROM full resist 24-13-716538:18 Muscle Strength LUE 5 ROM full resist 64-84-463895:18 Muscle Strength LLE 5 ROM full resist 84-85-989365:18 Diet regular :18 Abdomen Appearance round :18 Abdomen non-tender :18 [place]af[place] no :18 Urination normal :18 Quality sym/unlabored :18 Cough absent :18 Secretions no :18 Airway natural :18 Chest Tube no :18 Oxygen no :03 Temp >100.4 no :18 Temp <96.8 no :18 Chills with rigors no :18 HR > 90bpm yes :18 Respirations > 20 no :18 Systolic <90 no :18 headache stiff neck no :18 Rapid Resp no :18 Nursing Note Called et advised Royal at [facility] that pt had left [facility]. :13 Vital signs Type Value Date Respiration Rate 20breaths per minute 78-05-050080:03 Pulse 88beats per minute :03 Oxygen Saturation 94% :03 BP Systolic 120mmHg :03 BP Diastolic 76mmHg :03 Temperature 98.4F :03 Weight 158LB 04-92-924542:13 Social history Type Value Smoking Status CURRENT EVERY DAY SMOKER Treatment Plan No treatment plan text is available for this visit. Hospital discharge instructions Dismissal Condition good Disposition on DC transfered Comment: to [facility] in [place] Flu Vac 2013
--- OUTSIDE RECORDS SUMMARY | 2018-08-20 18:24 | XMS REPORT | Clinical Summary ---
Author Author Admin, TREVOR Wright [facility] Address Unknown Phone Unavailable Allergies, Adverse Reactions, [...] Generic Name NDC Status Provider Patient Instruction VENTOLIN HFA 108 (90 BASE) MCG/ACT AERS 2 puff q 4 - 6 hrs PRN (ok with me to fill 2 today---one for home, one for school) ALBUTEROL SULFATE 46102559769 Active Sushil STACK Active ORTHO TRI-CYCLEN (28) 0.18/0.215/0.25 MG-35 MCG TABS 1 tablet PO daily 05/02 NORGESTIM-ETH ESTRAD TRIPHASIC 67770838409 Active Sushil STACK Active BACTRIM DS 800-160 MG TABS 1 daily SULFAMETHOXAZOLE- TRIMETHOPRIM 61611749125 Active Sushil STACK Active AZO CRANBERRY TABS 1 tab daily CRANBERRY-VITAMIN C- PROBIOTIC TABS 45182460785 No Longer Active Sushil STACK Active SYYZXAMGG-WHWFDEPZP-LTEUFXYFH MISC AMOXICILL- CLARITHRO-LANSOPRAZ 03577915775 No Longer Active Sushil STACK Active ZYRTEC ALLERGY 10 MG CAPS 2 tablets daily until rash resolved CETIRIZINE HCL 81775323944 No Longer Active Sushil STACK Active PROZAC 20 MG CAPS 1 tab daily FLUOXETINE HCL 64909129359 Active Subhash Crowder DO Active MIRALAX POWD 17g 1 time daily POLYETHYLENE GLYCOL 3350 90034132521 Active Subhash Crowder DO Active ZYRTEC ALLERGY 10 MG CAPS 2 tablets daily until rash resolved ZYRTEC ALLERGY 10 MG CAPS CETIRIZINE HCL Inactive PZWLIPJRH-EXACWARFA-UCMWJEATN [facility] AMOXICILL- CLARITHRO-LANSOPRAZ [facility] 825117 VSFFSSURE-YYYXHNKDR-YMHLDKJDF Inactive AZO CRANBERRY TABS 1 tab daily [...] Measured Encounters Code Encounter Date Provider Facility CPT-36443 Level 3 Est. Patient 18:36:14 CDT Subhash Crowder DO [facility]
--- OUTSIDE RECORDS SUMMARY | 2018-08-20 18:24 | XMS REPORT ---
Author Author [facility] Staff Organization [facility] Address [address], [place] [address] Phone [phone] Summary purpose TRANSITION OF CARE AUTO GENERATION Chief Complaint and Reason for Visit Admit Diagnosis 1 PANIC ATTACK PTSD MUSCLE SPASAMS Problem list No authorized problems tracked for continuity of care are available for this visit. Encounters The following conditions tracked for encounter diagnoses were recorded for this visit: Finding or Diagnosis Status Certainty Chronicity Onset *DEPRESSION Active Medications Home Medications Medication Directions Started Status Source Prozac 20 mg capsule 1 tablet oral 1 Daily Current Patient medication list Vistaril 25 mg capsule 1 tablet oral 2 Times Daily Current Patient medication list Tri-Linyah (28) 0.18 mg(7)/0.215 mg(7)/0.25 mg(7)-35 mcg tablet 1 tablet oral 1 Daily Current Patient medication list Miralax 17 gram oral powder packet 1 applicator oral As Needed Current Patient medication list Allergies, adverse reactions, alerts Allergen Category Ingredient Status Reaction Severity Onset Amoxicillin Drug Allergy Amoxicillin Confirmed or Verified Immunizations No immunizations recorded for this patient visit Relevant diagnostic tests and/or laboratory data RESULTS Routine Urinalysis [id number]:05:00 Result Normal Range Units Color YELLOW Clarity Slighty cloudy Specific [place] 1.020 1.003-1.035 pH 8.0 4.5-8.0 Glucose NEGATIVE Bilirubin NEGATIVE Ketones NEGATIVE Protein NEGATIVE Urobilinogen 0.2 0-0.2 E.U./dL Nitrites NEGATIVE Blood NEGATIVE Leukocytes NEGATIVE WBCs 0-5 RBCs 0-5 Squamous Epithelial Few Amorphous Crystals 3+ Drug Screen In House :05:00 Result Normal Range Units Amphetamine Negative Negative Barbiturates Negative Negative Benzodiazepines Negative Negative Cannabinoids Negative Negative *Triage TOXis a medical drug screen to be used only for assessment and treatment of patients. This drug screen cannot be used for employment or legal purposes. Cocaine Negative Negative Mamp/MDMA Negative Negative Methadone Negative Negative Opiates Negative Negative Phencyclidine Negative Negative Tricyclic Antidepressants Negative Negative Chemistry :05:00 Result Normal Range Units Sodium 140 134-145 mEq/l Potassium 4.0 3.5-5.1 mEq/l Chloride H 108 98-107 mEq/l CO2 24.6 22-28 mEq/l Glucose 103 70-105 mg/dl BUN 10 7-18 mg/dl Creatinine 0.72 0.6-1.0 mg/dl Calcium 8.5 8.4-10.2 mg/dl TP - Total Protein 6.2 6.0-8.3 g/dl Albumin L 2.9 3.5-5 g/dl Bilirubin - Total 0.3 0.1-1.0 mg/dl AST 11 10-42 IU/L ALT 13 12-65 IU/L ALP L 33 55-179 IU/L Osmolality L 278.7 280-300 mOsm/L Albumin/Globulin Ratio 0.9 0-8 Anion GAP L 7.4 8-16 BUN/Creatinine Ratio 13.9 10-20 Estimated GFR 109 >=60 mL/min/1.7 Hematology :05:00 Result Normal Range Units WBC 5.3 4.8-10.8 103/uL RBC L 3.9 4.2-5.4 106/uL HGB L 11.2 12.0-16.0 g/dl HCT L 34.2 36.9-47.0 % MCV 88.1 81-99 FL MCH 28.9 27-31 pg MCHC L 32.7 33-37 g/dl RDW 12.8 11.5-15.5 % PLT 218 130-400 103/uL MPV 9.6 7.3-10.4 FL Neutro % 49.3 40-70 % Lymph % 37.6 20-40 % [place] % 6.9 0-10.0 % Eos % 5.6 0-7.0 % Baso % 0.6 0-2 % Neutro # 2.6 1.5-7.5 103/uL Lymph # 2.0 0.9-4.0 103/uL [place] # 0.4 0-0.8 103/uL Eos # 0.3 0-0.6 103/uL Baso # 0.0 0-0.1 103/uL Body Fluid [id number]:05:00 Result Normal Range Units pH 8.0 4.5-8.0 Radiology Results [id number]:05:00 Result Normal Range Units MPV 9.6 7.3-10.4 FL 16-28-050048:53:00 Abdomen 2 View PACs Image DATE OF EXAM: 2013 RAD 0037-ABDOMEN 2 VIEW : RADIOLOGY REPORT DATE OF SERVICE:05/25/2014 HISTORY:Abdominal pain. ABDOMEN 2 VIEWS; 1537 HOURS Moderate stool content is present in the colon. The small bowel is normal. There is no free air. There are no masses or pathological calcifications. The lung bases are clear. IMPRESSION:Moderate colonic waste. No acute abdominal abnormality. MD IVANA Kingsley/brissa 16:50:00 / 05/25/2014 18:51:37 cc:Dr Rahman, Attending This document has been electronically Signed by: On: DATE OF EXAM: 2013 RAD 0037-ABDOMEN 2 VIEW : RADIOLOGY REPORT DATE OF SERVICE:05/25/2014 HISTORY:Abdominal pain. ABDOMEN 2 VIEWS; 1537 HOURS Moderate stool content is present in the colon. The small bowel is normal. There is no free air. There are no masses or pathological calcifications. The lung bases are clear. IMPRESSION:Moderate colonic waste. No acute abdominal abnormality. MD IVANA Kingsley/05/25/2014 16:50:00 / 05/25/2014 18:51:37 cc:Dr Rahman, Attending This document has been electronically Signed by: On: DATE OF EXAM: 2013 RAD 0037-ABDOMEN 2 VIEW : RADIOLOGY REPORT DATE OF SERVICE:05/25/2014 HISTORY:Abdominal pain. ABDOMEN 2 VIEWS; 1537 HOURS Moderate stool content is present in the colon. The small bowel is normal. There is no free air. There are no masses or pathological calcifications. The lung bases are clear. IMPRESSION:Moderate colonic waste. No acute abdominal abnormality. MD IVANA Kingsley/brissa 16:50:00 / 05/25/2014 18:51:37 cc:Dr Rahman, Attending This document has been electronically Signed by: DM DUPREE On: 20138:53P PANIC ATTACK PTSD MUSCLE SPASA Result Amended on 2014-05-25 at 20:16:53. Previous status was HI. PANIC ATTACK PTSD MUSCLE SPASA Result Amended on 2014-05-25 at 20:53:48. Previous status was HI. PANIC ATTACK PTSD MUSCLE SPASA Chest X-Ray - 2 View PACs Image DATE OF EXAM: 2013 RAD 0300-CHEST XRAY 2 VIEW : RADIOLOGY REPORT DATE OF SERVICE: 05/25/2014 HISTORY:Bilateral chest wall pain. CHEST 2 VIEWS; 1537 HOURS The lungs are clear. There are small bilateral cervical ribs. Heart size and pulmonary vessels are normal. There is no pneumothorax or pleural effusion. IMPRESSION:No acute abnormality. MD IVANA Kingsley/pb1 16:50:00 / 05/25/2014 18:52:46 cc:Dr Rahman, Attending This document has been electronically Signed by: On: DATE OF EXAM: 2013 RAD 0300-CHEST XRAY 2 VIEW : RADIOLOGY REPORT DATE OF SERVICE: 05/25/2014 HISTORY:Bilateral chest wall pain. CHEST 2 VIEWS; 1537 HOURS The lungs are clear. There are small bilateral cervical ribs. Heart size and pulmonary vessels are normal. There is no pneumothorax or pleural effusion. IMPRESSION:No acute abnormality. MD IVANA Kingsley/pb1 16:50:00 / 05/25/2014 18:52:46 cc:Dr Rahman, Attending This document has been electronically Signed by: On: DATE OF EXAM: 2013 RAD 0300-CHEST XRAY 2 VIEW : RADIOLOGY REPORT DATE OF SERVICE: 05/25/2014 HISTORY:Bilateral chest wall pain. CHEST 2 VIEWS; 1537 HOURS The lungs are clear. There are small bilateral cervical ribs. Heart size and pulmonary vessels are normal. There is no pneumothorax or pleural effusion. IMPRESSION:No acute abnormality. MD IVANA Kingsley/pb1 16:50:00 / 05/25/2014 18:52:46 cc:Dr Rahman, Attending This document has been electronically Signed by: DM DUPREE On: 20138:53P PANIC ATTACK PTSD MUSCLE SPASA Result Amended on 2014-05-25 at 20:14:22. Previous status was HI. PANIC ATTACK PTSD MUSCLE SPASA Result Amended on 2014-05-25 at 20:53:55. Previous status was HI. PANIC ATTACK PTSD MUSCLE SPASA History of procedures No procedures recorded for this patient visit. Functional status Functional Status Finding Observation Time Hearing Prob Loc none :10 Vision Problems no :10 Range of Motion full :12 Muscle Strength RUE 5 ROM full resist :12 Muscle Strength RLE 5 ROM full resist :12 Muscle Strength LUE 5 ROM full resist :12 Muscle Strength LLE 5 ROM full resist :12 Transfers independent :12 Ambulation up ad marshall :12 Balance steady :12 Bathing Assistance none :10 Eating Assistance none :10 Dressing Assistance none :10 Toileting Assistance minimal Comment: stand by assist :10 Transfer Assistance minimal Comment: stand by assist :10 Decline Slf Care/Mob no :10 Phys Cond Stable yes :10 Cognitive Status Finding Observation Time Oriented To Date 5 Yes :[address] 5 Yes :10 Name 3 Objects 3 Yes :10 Name Object in Rm 2 Yes :10 Recall 3 Objects 3 Yes :10 Repeats a Phrase 1 Yes :10 Follows Verbal Direc 3 Yes :10 Follows Written Dire 1 Yes :10 Write a Sentance 1 Yes :10 Draw an Object 1 Yes :10 Mini Mental Total 25 points :10 Learning Ability comprehends well :11 Neurological no :11 Psychological yes :11 Physical no :11 Hearing no :11 Lithograph Designer Needed no :11 Sign Language no :11 Emotional yes :11 Vision no :11 Laguage no :11 Financial no 88-36-048454:11 Vital signs Type Value Date Respiration Rate 20breaths per minute :40 Pulse 72beats per minute :40 Oxygen Saturation 99% :40 BP Systolic 96mmHg :40 BP Diastolic 65mmHg :40 Temperature 98.7F :40 Height 66inches :16 Weight 149.5LB :16 Social history Type Value Smoking Status FORMER SMOKER Treatment Plan No treatment plan text is available for this visit. 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
--- OUTSIDE RECORDS SUMMARY | 2018-08-20 18:24 | XMS REPORT ---
Author Author [facility] Medical Staff Organization [facility] Address [address], [place] [address] Phone [phone] Summary purpose TRANSITION OF CARE AUTO GENERATION [...]
--- OUTSIDE RECORDS SUMMARY | 2018-08-20 18:24 | XMS REPORT ---
Author Author [facility] Medical Staff Organization [facility] Address [address], [place] [address] Phone [phone] Summary purpose TRANSITION OF CARE AUTO GENERATION Chief Complaint and Reason for Visit Admit Diagnosis 1 SHORTNESS OF BREATH Problem list No authorized problems tracked for [...] laboratory data RESULTS Drug Screen In House [id number]:05:00 Result Normal Range Units Amphetamine Negative Negative Barbiturates AB Positive Negative Benzodiazepines Negative Negative Cannabinoids Negative Negative *Triage TOXis a medical drug screen to be used only for assessment and treatment of patients. This drug screen cannot be used for employment or legal purposes. Cocaine Negative Negative Mamp/MDMA Negative Negative Methadone Negative Negative Opiates Negative Negative Phencyclidine Negative Negative Tricyclic Antidepressants Negative Negative Therapeutic Drug Monitoring 22-66-419103:40:00 Result Normal Range Units Acetaminophen L 0.0 10.0-30.0 ug/ml Salicylate L 1.2 2.0-20.0 mg/dl Chemistry [id number]:40:00 Result Normal Range Units Sodium 140 134-145 mEq/l Potassium L 3.4 3.5-5.1 mEq/l Chloride 101 98-107 mEq/l CO2 H 29.2 22-28 mEq/l Glucose H 116 70-105 mg/dl BUN 12 7-18 mg/dl Creatinine 0.85 0.6-1.0 mg/dl Calcium 8.7 8.4-10.2 mg/dl TP - Total Protein 7.4 6.0-8.3 g/dl Albumin 3.7 3.5-5 g/dl Bilirubin - Total 0.3 0.1-1.0 mg/dl AST 17 10-42 IU/L ALT 17 12-65 IU/L ALP 62 39-101 IU/L Osmolality 280.1 280-300 mOsm/L Albumin/Globulin Ratio 1.0 0-8 Anion GAP 9.8 8-16 BUN/Creatinine Ratio 14.1 10-20 Estimated GFR 89 >=60 mL/min/1.7 Hematology [id number]:40:00 Result Normal Range Units WBC 8.7 4.8-10.8 103/uL RBC 4.3 4.2-5.4 106/uL HGB 12.3 12.0-16.0 g/dl HCT 37.4 36.9-47.0 % MCV 87.0 81-99 FL MCH 28.6 27-31 pg MCHC L 32.9 33-37 g/dl RDW 12.3 11.5-15.5 % PLT 264 130-400 103/uL MPV 9.3 7.3-10.4 FL Special Chemistry [id number]:40:00 Result Normal Range Units ETOH < 3 0-5 mg/dl Radiology Results 77-72-911715:40:00 Result Normal Range Units MPV 9.3 7.3-10.4 FL History of procedures Procedure Code Code Type Description Date Performed Performing Physician 57274 CPT-4 ANALGESICS NON-OPIOID 1 OR 2 10-13-2014 ROBERT TORRES 13868 CPT-4 ANALGESICS NON-OPIOID 1 OR 2 10-13-2014 ROBERT TORRES 83652 CPT-4 COMPLETE CBC, AUTOMATED 10-13-2014 ROBERT TORRES 84127 CPT-4 COMPREHEN METABOLIC PANEL 10-13-2014 ROBERT TORRES 26218 CPT-4 DRUG SCREEN NON TLC DEVICES 10-13-2014 ROBERT BRIAN 25849 CPT-4 DRUG SCREEN QUANTALCOHOLS 10-13-2014 ROBERT TORRES 33707 CPT-4 ROUTINE VENIPUNCTURE 10-13-2014 ROBERT TORRES 89245 CPT-4 EMERGENCY DEPT VISIT 10-13-2014 ROBERT TORRES 14906 CPT-4 EMERGENCY DEPT VISIT 10-13-2014 ROBERT TORRES Functional status Functional Status Finding Observation Time Diet regular 03-54-512696:15 Abdomen Appearance round 72-72-983119:15 Abdomen non-tender 83-66-887140:15 [place]af[place] no 47-95-548971:15 Urination normal 05-43-896340:15 Quality sym/unlabored 12-20-988213:15 Cough absent 74-27-417664:15 Secretions no 94-09-076557:15 Airway natural 41-30-014625:15 Chest Tube no 10-51-375007:15 Temp >100.4 no 97-84-297559:15 Temp <96.8 no 93-91-314017:15 Chills with rigors no 16-99-415792:15 HR > 90bpm yes 59-79-671754:15 Respirations > 20 no 73-11-636958:15 Systolic <90 no 21-01-367771:15 headache stiff neck no 15-83-860570:15 Rapid Resp no 39-17-965264:15 Nursing Note DC instructions reviewed with pts foster mother per Maximo Knapp RN. Pts foster mother is upset about appoinments being made for her and nothing being done. Pt amb from unit in stable condition, family at side. 62-46-234798:45 Vital signs Type Value Date Respiration Rate 18breaths per minute 64-19-277203:45 Pulse 96beats per minute 12-45-182889:45 Oxygen Saturation 100% 47-94-724562:45 BP Systolic 106mmHg 41-14-844190:45 BP Diastolic 68mmHg 89-26-933742:45 Temperature 98.1F 88-60-543659:45 Height 65inches 73-37-629877:00 Weight 164LB 22-85-478306:00 Social history Type Value Smoking Status FORMER SMOKER Treatment Plan No treatment plan text is available for this visit. Hospital discharge instructions Dismissal Condition good Disposition on DC home DC Inst/Educ Give yes Med/Side Effects Rev yes Flu Vac 2013
--- OUTSIDE RECORDS SUMMARY | 2018-08-20 18:25 | XMS REPORT ---
Author Author [facility] Medical Staff Organization [facility] Address [address], [place] [address] Phone [phone] Summary purpose TRANSITION OF CARE AUTO GENERATION Chief Complaint and Reason for Visit Admit Diagnosis 1 CHEST PAIN NOS Problem list No authorized problems tracked for [...] tests and/or laboratory data RESULTS Routine Urinalysis 58-63-786333:10:00 Result Normal Range Units Color YELLOW Clarity Clear Specific [place] 1.020 1.003-1.035 pH 6.5 4.5-8.0 Glucose NEGATIVE Bilirubin NEGATIVE Ketones NEGATIVE Protein NEGATIVE Urobilinogen 0.2 0-0.2 E.U./dL Nitrites NEGATIVE Blood NEGATIVE Leukocytes NEGATIVE WBCs 0-5 RBCs No RBC's Seen. Squamous Epithelial Few Bacteria Rare Amount Drug Screen In House 17-84-601986:10:00 Result Normal Range Units Amphetamine Negative Negative Barbiturates Negative Negative Benzodiazepines Negative Negative Cannabinoids Negative Negative *Triage TOXis a medical drug screen to be used only for assessment and treatment of patients. This drug screen cannot be used for employment or legal purposes. Cocaine Negative Negative Mamp/MDMA Negative Negative Methadone Negative Negative Opiates Negative Negative Phencyclidine Negative Negative Tricyclic Antidepressants Negative Negative Body Fluid 02-56-699673:10:00 Result Normal Range Units pH 6.5 4.5-8.0 History of procedures Procedure Code Code Type Description Date Performed Performing Physician 42200 CPT-4 URINALYSIS, AUTO W/SCOPE 10-08-2014 KATIE MACEDO 72903 CPT-4 DRUG SCREEN NON TLC DEVICES 10-08-2014 KATIE MACEDO 74594 CPT-4 EMERGENCY DEPT VISIT 10-08-2014 KATIE MACEDO 35408 CPT-4 EMERGENCY DEPT VISIT 10-08-2014 KATIE MACEDO Functional status Functional Status Finding Observation Time Abdomen Appearance flat :15 Abdomen non-tender :15 Urination normal :15 Quality sym/unlabored :15 Cough absent :15 Secretions no :15 Airway natural :15 Chest Tube no :15 Temp >100.4 no :15 Temp <96.8 no :15 Chills with rigors no :15 HR > 90bpm yes :15 Respirations > 20 no :15 Systolic <90 no :15 headache stiff neck no :15 Rapid Resp no :15 Nursing Note Discharge instructions reviewed-verbalized understanding. VS obtained, dc in good condition and ambulatory. :50 Vital signs Type Value Date Respiration Rate 18breaths per minute :50 Pulse 89beats per minute :50 Oxygen Saturation 99% :50 BP Systolic 120mmHg :50 BP Diastolic 80mmHg :50 Temperature 98.4F :50 Weight 166.8LB :05 Social history Type Value Smoking Status FORMER SMOKER Treatment Plan No treatment plan text is available for this visit. Hospital discharge instructions Dismissal Condition good Disposition on DC home DC Inst/Educ Give yes Med/Side Effects Rev yes
--- OUTSIDE RECORDS SUMMARY | 2018-08-20 18:25 | XMS REPORT | Clinical Summary ---
Author Author Admin, TREVOR Wright [facility] Address Unknown Phone Unavailable Allergies, Adverse [...] tablets daily until rash resolved CETIRIZINE HCL 44410581255 Active Subhash Crowder DO Active [id number] MISC AMOXICILL-CLARITHRO- LANSOPRAZ 84622454604 Active Subhash Crowder DO Active PROZAC 20 MG CAPS 1 tab daily FLUOXETINE HCL 07518185707 Active Subhash Crowder DO Active MIRALAX POWD 17g 1 time daily POLYETHYLENE GLYCOL 3350 50360749368 Active Subhash Crowder DO Active AZO CRANBERRY TABS 1 tab daily CRANBERRY-VITAMIN C-PROBIOTIC TABS 05500268095 Active Subhash Crowder DO Active Advance Directives Directive Description Start Date HOME PLACEMENT AGREEMENT Vital Signs Date Name Value Unit Range Description blood pressure, diastolic - 8462-4 54 mm[Hg] BP mays blood pressure, systolic - 8480-6 90 mm[Hg] BP sys height E&M - 8302-2 65 [in_us] Bdy height pulse rate E&M - 8867-4 90 /min Heart rate temperature E&M 99.1 [degF] Body temperature weight E&M - 3141-9 136 [lb_av] Weight Measured Encounters Code Encounter Date Provider Facility CPT-07869 Level 3 Est. Patient 18:36:14 CDT Subahsh Crowder DO [facility]
--- OUTSIDE RECORDS SUMMARY | 2018-08-20 18:25 | XMS REPORT ---
Author Author [facility] Medical Staff Organization [facility] Address [address] [place] [address] Phone [phone] Summary purpose TRANSITION OF CARE AUTO GENERATION [...] tests and/or laboratory data RESULTS Routine Urinalysis :10:00 Result Normal Range Units Color YELLOW Clarity Clear Specific [place] 1.020 1.003-1.035 pH 6.5 4.5-8.0 Glucose NEGATIVE Bilirubin NEGATIVE Ketones NEGATIVE Protein NEGATIVE Urobilinogen 0.2 0-0.2 E.U./dL Nitrites NEGATIVE Blood NEGATIVE Leukocytes NEGATIVE WBCs 0-5 RBCs No RBC's Seen. Squamous Epithelial Few Bacteria Rare Amount Drug Screen In House :10:00 Result Normal Range Units Amphetamine Negative Negative [...] Negative Tricyclic Antidepressants Negative Negative Body Fluid :10:00 Result Normal Range Units pH 6.5 4.5-8.0 History of procedures No procedures recorded for [...]
--- OUTSIDE RECORDS SUMMARY | 2018-08-20 18:25 | XMS REPORT ---
Author Author [facility] Medical Staff Organization [facility] Address [address], [place] [address] Phone [phone] Summary purpose TRANSITION OF CARE AUTO GENERATION [...]
--- OUTSIDE RECORDS SUMMARY | 2018-08-20 18:25 | XMS REPORT | Clinical Summary ---
Author Author Admin, TREVOR Wright [facility] Address Unknown Phone Unavailable Allergies, Adverse Reactions, [...] for home, one for school) ALBUTEROL SULFATE 79975237244 Active Sushil STACK Active ORTHO TRI-CYCLEN (28) 0.18/0.215/0.25 MG-35 MCG TABS 1 tablet PO daily 05/02 NORGESTIM-ETH ESTRAD TRIPHASIC 92066512624 Active Sushil STACK Active BACTRIM DS 800-160 MG TABS 1 daily SULFAMETHOXAZOLE- TRIMETHOPRIM 53883656978 Active Sushil STACK Active AZO CRANBERRY TABS 1 tab daily CRANBERRY-VITAMIN C- PROBIOTIC TABS 18697201942 No Longer Active Sushil STACK Active TXSMZVBPI-UHLIWKXNJ-EQCPSHHOI MISC AMOXICILL- CLARITHRO-LANSOPRAZ 05213767436 No Longer Active Sushil STACK Active ZYRTEC ALLERGY 10 MG CAPS 2 tablets daily until rash resolved CETIRIZINE HCL 43666505326 No Longer Active Sushil SATCK Active PROZAC 20 MG CAPS 1 tab daily FLUOXETINE HCL 47359900927 Active Subhash Crowder DO Active MIRALAX POWD 17g 1 time daily POLYETHYLENE GLYCOL 3350 11814152699 Active Subhash Crowder DO Active ZYRTEC ALLERGY 10 MG CAPS 2 tablets daily until rash resolved ZYRTEC ALLERGY 10 MG CAPS CETIRIZINE HCL Inactive WJOAAFLGY-OIDPXORLG-FTYPZMTQA [facility] AMOXICILL- CLARITHRO-LANSOPRAZ [facility] [id number] BJXRROXKT-GODDJVSHT-BNSDUVFZC Inactive AZO CRANBERRY TABS 1 tab daily [...] Measured Encounters Code Encounter Date Provider Facility CPT-46877 Level 3 Est. Patient 18:36:14 CDT Subhash Crowder DO [facility]
--- OUTSIDE RECORDS SUMMARY | 2018-08-20 18:25 | XMS REPORT | Clinical Summary ---
Author Author Admin, TREVOR Organization [facility] Address Unknown Phone Unavailable Allergies, Adverse [...] Instructions Start Date Stop Date Generic Name [facility] Status Provider Patient Instruction VENTOLIN HFA 108 (90 BASE) MCG/ACT AERS 2 puff q 4 - 6 hrs PRN (ok with me to fill 2 today---one for home, one for school) ALBUTEROL SULFATE 86311182289 Active Sushil STACK Active ORTHO TRI-CYCLEN (28) 0.18/0.215/0.25 MG-35 MCG TABS 1 tablet PO daily 05/02 NORGESTIM-ETH ESTRAD TRIPHASIC 05325577828 Active Sushil STACK Active BACTRIM DS 800-160 MG TABS 1 daily SULFAMETHOXAZOLE- TRIMETHOPRIM 53932073029 Active Sushil STACK Active AZO CRANBERRY TABS 1 tab daily CRANBERRY-VITAMIN C- PROBIOTIC TABS 48457968748 No Longer Active Sushil STACK Active ETSAOBBLS-FWHVAAXAH-THQGITSFI MISC AMOXICILL- CLARITHRO-LANSOPRAZ 76736926175 No Longer Active Sushil STACK Active ZYRTEC ALLERGY 10 MG CAPS 2 tablets daily until rash resolved CETIRIZINE HCL 18508428004 No Longer Active Sushil STACK Active PROZAC 20 MG CAPS 1 tab daily FLUOXETINE HCL 16794607456 Active Subhash Crowder DO Active MIRALAX POWD 17g 1 time daily POLYETHYLENE GLYCOL 3350 94954034530 Active Subhash Crowder DO Active ZYRTEC ALLERGY 10 MG CAPS 2 tablets daily until rash resolved ZYRTEC ALLERGY 10 MG CAPS CETIRIZINE HCL Inactive YHLZPLFVN-ZECTSKXJJ-NAGXABYXS MISC AMOXICILL- CLARITHRO-LANSOPRAZ MISC 182260 VMXCCQBZI-ADCLMQGJW-LLGMXZBGD Inactive AZO CRANBERRY TABS 1 tab daily [...] Measured Encounters Code Encounter Date Provider Facility CPT-71884 Level 3 Est. Patient 16:25:11 CDT Sushil STACK [facility] CPT-45307 Level 3 Est. Patient 18:36:14 CDT Subhash Crowder DO [facility]
--- OUTSIDE RECORDS SUMMARY | 2018-08-20 18:26 | XMS REPORT | Clinical Summary ---
Author Author Admin, TREVOR Wright [facility] Address Unknown Phone Unavailable Allergies, Adverse Reactions, [...] tablets daily until rash resolved CETIRIZINE HCL 39209950866 Active Subhash Crowder DO Active GVKVGLCXU-QPTVSMQHD-TIGFNSPUD MISC AMOXICILL-CLARITHRO- LANSOPRAZ 38617237190 Active Subhash Crowder DO Active PROZAC 20 MG CAPS 1 tab daily FLUOXETINE HCL 71592595714 Active Subhash Crowder DO Active MIRALAX POWD 17g 1 time daily POLYETHYLENE GLYCOL 3350 92976624126 Active Subhash Crowder DO Active AZO CRANBERRY TABS 1 tab daily CRANBERRY-VITAMIN C-PROBIOTIC TABS 79688325201 Active Subhash Crowder DO Active Vital Signs Date Name Value Unit Range Description blood pressure, diastolic - 8462-4 54 mm[Hg] BP mays blood pressure, systolic - 8480-6 90 mm[Hg] BP sys height E&M - 8302-2 65 [in_us] Bdy height pulse rate E&M - 8867-4 90 /min Heart rate temperature E&M 99.1 [degF] Body temperature weight E&M - 3141-9 136 [lb_av] Weight Measured Encounters Code Encounter Date Provider Facility CPT-85755 Level 3 Est. Patient 18:36:14 CDT Subhash Crowder DO [facility]
--- OUTSIDE RECORDS SUMMARY | 2018-08-20 18:26 | XMS REPORT | Clinical Summary ---
Author Author Admin, TREVOR Organization [facility] Address Unknown Phone Unavailable Allergies, Adverse [...] Instructions Start Date Stop Date Generic Name [facility] Status Provider Patient Instruction VENTOLIN HFA 108 (90 BASE) MCG/ACT AERS 2 puff q 4 - 6 hrs PRN (ok with me to fill 2 today---one for home, one for school) ALBUTEROL SULFATE 99980112087 Active Sushil STACK Active ORTHO TRI-CYCLEN (28) 0.18/0.215/0.25 MG-35 MCG TABS 1 tablet PO daily 05/02 NORGESTIM-ETH ESTRAD TRIPHASIC 82276693555 Active Sushil STACK Active BACTRIM DS 800-160 MG TABS 1 daily SULFAMETHOXAZOLE- TRIMETHOPRIM 10898346667 Active Sushil STACK Active AZO CRANBERRY TABS 1 tab daily CRANBERRY-VITAMIN C- PROBIOTIC TABS 82804804289 No Longer Active Sushil STACK Active ZTFHSXYLB-VPKPIIGKS-JEBLLZLBM MISC AMOXICILL- CLARITHRO-LANSOPRAZ 10662455007 No Longer Active Sushil STACK Active ZYRTEC ALLERGY 10 MG CAPS 2 tablets daily until rash resolved CETIRIZINE HCL 99512030847 No Longer Active Sushil STACK Active PROZAC 20 MG CAPS 1 tab daily FLUOXETINE HCL 12206386801 Active Subhash Crowder DO Active MIRALAX POWD 17g 1 time daily POLYETHYLENE GLYCOL 3350 94426869833 Active Subhash Crowder DO Active ZYRTEC ALLERGY 10 MG CAPS 2 tablets daily until rash resolved ZYRTEC ALLERGY 10 MG CAPS CETIRIZINE HCL Inactive MUZZXSUAS-MAENPGAHK-KWZHGYWVI MISC AMOXICILL- CLARITHRO-LANSOPRAZ MISC 250352 [id number]-LJDESURCG-HOTQJQJBC Inactive AZO CRANBERRY TABS 1 tab daily [...] Measured Encounters Code Encounter Date Provider Facility CPT-35902 Level 3 Est. Patient 16:25:11 CDT Sushil STACK [facility] CPT-43919 Level 3 Est. Patient 18:36:14 CDT Subhash Crowder DO [facility]
--- OUTSIDE RECORDS SUMMARY | 2018-08-20 18:26 | XMS REPORT | Clinical Summary ---
Author Author Admin, TREVOR Organization [facility] Address Unknown Phone Unavailable [...] Instructions Start Date Stop Date Generic Name [facility] Status Provider Patient Instruction VENTOLIN HFA 108 (90 BASE) MCG/ACT AERS 2 puff q 4 - 6 hrs PRN (ok with me to fill 2 today---one for home, one for school) ALBUTEROL SULFATE 14350052192 Active Sushil STACK Active ORTHO TRI-CYCLEN (28) 0.18/0.215/0.25 MG-35 MCG TABS 1 tablet PO daily 05/02 NORGESTIM-ETH ESTRAD TRIPHASIC 02549810102 Active Sushil STACK Active BACTRIM DS 800-160 MG TABS 1 daily SULFAMETHOXAZOLE- TRIMETHOPRIM 07221549314 Active Sushil STACK Active AZO CRANBERRY TABS 1 tab daily CRANBERRY-VITAMIN C- PROBIOTIC TABS 29012059891 No Longer Active Sushil STACK Active NXAWDJOPH-TIPOOELKZ-ZDGNIKVBS MISC AMOXICILL- CLARITHRO-LANSOPRAZ 23349211277 No Longer Active Sushil STACK Active ZYRTEC ALLERGY 10 MG CAPS 2 tablets daily until rash resolved CETIRIZINE HCL 13994388233 No Longer Active Sushil STACK Active PROZAC 20 MG CAPS 1 tab daily FLUOXETINE HCL 37377862752 Active Subhash Crowder DO Active MIRALAX POWD 17g 1 time daily POLYETHYLENE GLYCOL 3350 45844740214 Active Subhash Crowder DO Active ZYRTEC ALLERGY 10 MG CAPS 2 tablets daily until rash resolved ZYRTEC ALLERGY 10 MG CAPS CETIRIZINE HCL Inactive PFXYGLUTF-AAMJLUJXS-MXBUKTGJH MISC AMOXICILL- CLARITHRO-LANSOPRAZ MISC 567775 MQMWKXEKM-IJWXORUGQ-JCUQJCFFI Inactive AZO CRANBERRY TABS 1 tab daily [...] Measured Encounters Code Encounter Date Provider Facility CPT-62115 Level 3 Est. Patient 16:25:11 CDT Sushil STACK [facility] CPT-50281 Level 3 Est. Patient 18:36:14 CDT Subhash Crowder DO [facility]
--- OUTSIDE RECORDS SUMMARY | 2018-08-20 18:26 | XMS REPORT ---
Author Author [facility] Medical Staff Organization [facility] Address [address] [place], [place] [address] Phone [phone] Summary purpose TRANSITION OF CARE AUTO GENERATION [...] laboratory data RESULTS Drug Screen In House [id number]:05:00 Result Normal Range Units Amphetamine Negative Negative [...] Tricyclic Antidepressants Negative Negative Therapeutic Drug Monitoring 53-92-600199:40:00 Result Normal Range Units Acetaminophen L 0.0 10.0-30.0 ug/ml Salicylate L 1.2 2.0-20.0 mg/dl Chemistry [id number]:40:00 Result Normal Range Units Sodium 140 134-145 [...] 10-20 Estimated GFR 89 >=60 mL/min/1.7 Hematology 56-18-922663:40:00 Result Normal Range Units WBC 8.7 4.8-10.8 103/uL RBC 4.3 4.2-5.4 106/uL HGB 12.3 12.0-16.0 g/dl HCT 37.4 36.9-47.0 % MCV 87.0 81-99 FL MCH 28.6 27-31 pg MCHC L 32.9 33-37 g/dl RDW 12.3 11.5-15.5 % PLT 264 130-400 103/uL MPV 9.3 7.3-10.4 FL Special Chemistry [id number]:40:00 Result Normal Range Units ETOH < 3 0-5 mg/dl Radiology Results [id number]:40:00 Result Normal Range Units MPV 9.3 7.3-10.4 FL History of procedures No procedures recorded for this patient visit. Functional status Functional Status Finding Observation Time Diet regular 87-73-764642:15 Abdomen Appearance round 42-51-238470:15 Abdomen non-tender 03-15-944091:15 Tafoya no 73-53-201570:15 Urination normal 32-97-134280:15 Quality sym/unlabored 21-80-553023:15 Cough absent 73-77-702824:15 Secretions no 73-94-295174:15 Airway natural 07-59-431926:15 Chest Tube no 87-61-014250:15 Temp >100.4 no 35-15-533245:15 Temp <96.8 no 08-75-938075:15 Chills with rigors no 80-13-242913:15 HR > 90bpm yes 04-79-153588:15 Respirations > 20 no 46-08-936828:15 Systolic <90 no 98-27-126606:15 headache stiff neck no 54-53-836331:15 Rapid Resp no 41-59-012873:15 Nursing Note DC instructions reviewed with pts foster mother per Maximo Knapp RN. Pts foster mother is upset about appoinments being made for her and nothing being done. Pt amb from unit in stable condition, family at side. :45 Vital signs Type Value Date Respiration Rate 18breaths per minute :45 Pulse 96beats per minute :45 Oxygen Saturation 100% :45 BP Systolic 106mmHg :45 BP Diastolic 68mmHg 88-38-144990:45 Temperature 98.1F 66-12-994222:45 Height 65inches :00 Weight 164LB :00 Social history Type Value Smoking Status FORMER SMOKER Treatment Plan No treatment plan text is available for this visit. Hospital discharge instructions Dismissal Condition good Disposition on DC home DC Inst/Educ Give yes Med/Side Effects Rev yes Flu Vac 2013
--- OUTSIDE RECORDS SUMMARY | 2018-08-20 18:26 | XMS REPORT | Clinical Summary ---
Author Author Admin, TREVOR Organization [facility] Address Unknown Phone Unavailable Allergies, Adverse Reactions, [...] Instructions Start Date Stop Date Generic Name [facility] Status Provider Patient Instruction VENTOLIN HFA 108 (90 BASE) MCG/ACT AERS 2 puff q 4 - 6 hrs PRN (ok with me to fill 2 today---one for home, one for school) ALBUTEROL SULFATE 30413969606 Active Sushil STACK Active ORTHO TRI-CYCLEN (28) 0.18/0.215/0.25 MG-35 MCG TABS 1 tablet PO daily 05/02 NORGESTIM-ETH ESTRAD TRIPHASIC 65109491988 Active Sushil STACK Active BACTRIM DS 800-160 MG TABS 1 daily SULFAMETHOXAZOLE- TRIMETHOPRIM 99240314525 Active Sushil STACK Active AZO CRANBERRY TABS 1 tab daily CRANBERRY-VITAMIN C- PROBIOTIC TABS 74570859975 No Longer Active Sushil STACK Active HHKFZPOBR-FWBSKWYLK-LEASOQHKT MISC AMOXICILL- CLARITHRO-LANSOPRAZ 83423952997 No Longer Active Sushil STACK Active ZYRTEC ALLERGY 10 MG CAPS 2 tablets daily until rash resolved CETIRIZINE HCL 74237437883 No Longer Active Sushil STACK Active PROZAC 20 MG CAPS 1 tab daily FLUOXETINE HCL 61530928071 Active Subhash Crowder DO Active MIRALAX POWD 17g 1 time daily POLYETHYLENE GLYCOL 3350 85584057133 Active Subhash Crowder DO Active ZYRTEC ALLERGY 10 MG CAPS 2 tablets daily until rash resolved ZYRTEC ALLERGY 10 MG CAPS CETIRIZINE HCL Inactive IAEFRLPGT-YHPPTOYRI-IJJXXZNJZ MISC AMOXICILL- CLARITHRO-LANSOPRAZ MISC 763279 DJTUZVMAC-PUSOQLZEO-YRXHEQJGP Inactive AZO CRANBERRY TABS 1 tab daily [...] Measured Encounters Code Encounter Date Provider Facility CPT-65093 Level 3 Est. Patient 16:25:11 CDT Sushil STACK [facility] CPT-08514 Level 3 Est. Patient 18:36:14 CDT Subhash Crowder DO [facility]
--- OUTSIDE RECORDS SUMMARY | 2018-08-20 18:26 | XMS REPORT | Clinical Summary ---
Author Author Admin, TREVOR Organization [facility] Address Unknown Phone Unavailable Allergies, Adverse [...] Start Date Stop Date Generic Name [facility] Status Provider Patient Instruction VENTOLIN HFA 108 (90 BASE) MCG/ACT AERS 2 puff q 4 - 6 hrs PRN (ok with me to fill 2 today---one for home, one for school) ALBUTEROL SULFATE 87462343310 Active Sushil STACK Active ORTHO TRI-CYCLEN (28) 0.18/0.215/0.25 MG-35 MCG TABS 1 tablet PO daily 05/02 NORGESTIM-ETH ESTRAD TRIPHASIC 57958153683 Active Sushil STACK Active BACTRIM DS 800-160 MG TABS 1 daily SULFAMETHOXAZOLE- TRIMETHOPRIM 37217941352 Active Sushil STACK Active AZO CRANBERRY TABS 1 tab daily CRANBERRY-VITAMIN C- PROBIOTIC TABS 64562160833 No Longer Active Sushil STACK Active ODXHETGIN-EWKGLBDAW-UDJQDRNVN MISC AMOXICILL- CLARITHRO-LANSOPRAZ 28348780517 No Longer Active Sushil STACK Active ZYRTEC ALLERGY 10 MG CAPS 2 tablets daily until rash resolved CETIRIZINE HCL 03754734591 No Longer Active Sushil STACK Active PROZAC 20 MG CAPS 1 tab daily FLUOXETINE HCL 71330681186 Active Subhash Crowder DO Active MIRALAX POWD 17g 1 time daily POLYETHYLENE GLYCOL 3350 18105492029 Active Subhash Crowder DO Active ZYRTEC ALLERGY 10 MG CAPS 2 tablets daily until rash resolved ZYRTEC ALLERGY 10 MG CAPS CETIRIZINE HCL Inactive NZQOXKBXE-GGDHCGDGF-ZYHJUREMM MISC AMOXICILL- CLARITHRO-LANSOPRAZ MISC 112740 LASUAVSOV-SUYFDCKIK-RRYVNFTIU Inactive AZO CRANBERRY TABS 1 tab daily [...] Measured Encounters Code Encounter Date Provider Facility CPT-52313 Level 3 Est. Patient 16:25:11 CDT Sushil STACK [facility] CPT-35713 Level 3 Est. Patient 18:36:14 CDT Subhash Crowder DO [facility]
--- OUTSIDE RECORDS SUMMARY | 2018-08-20 18:26 | XMS REPORT | Clinical Summary ---
Author Author Admin, TREVOR Organization [facility] Address Unknown Phone Unavailable Allergies, Adverse Reactions, [...] Date Generic Name [facility] Status Provider Patient Instruction VENTOLIN HFA 108 (90 BASE) MCG/ACT AERS 2 puff q 4 - 6 hrs PRN (ok with me to fill 2 today---one for home, one for school) ALBUTEROL SULFATE 23205887509 Active Sushil STACK Active ORTHO TRI-CYCLEN (28) 0.18/0.215/0.25 MG-35 MCG TABS 1 tablet PO daily 05/02 NORGESTIM-ETH ESTRAD TRIPHASIC 88922299376 Active Sushil STACK Active BACTRIM DS 800-160 MG TABS 1 daily SULFAMETHOXAZOLE- TRIMETHOPRIM 48811862913 Active Sushil STACK Active AZO CRANBERRY TABS 1 tab daily CRANBERRY-VITAMIN C- PROBIOTIC TABS 48588207295 No Longer Active Sushil STACK Active URVLCXGBB-LUCKSRZBC-RUALBNZGU MISC AMOXICILL- CLARITHRO-LANSOPRAZ 95528654321 No Longer Active Sushil STACK Active ZYRTEC ALLERGY 10 MG CAPS 2 tablets daily until rash resolved CETIRIZINE HCL 06321444072 No Longer Active Sushil STACK Active PROZAC 20 MG CAPS 1 tab daily FLUOXETINE HCL 91737352621 Active Subhash Crowder DO Active MIRALAX POWD 17g 1 time daily POLYETHYLENE GLYCOL 3350 29351757732 Active Subhash Crowder DO Active ZYRTEC ALLERGY 10 MG CAPS 2 tablets daily until rash resolved ZYRTEC ALLERGY 10 MG CAPS CETIRIZINE HCL Inactive BSSTKOCVX-PFKLSUGSF-BESQSRBLB MISC AMOXICILL- CLARITHRO-LANSOPRAZ MISC 140363 ELHTWJDXG-JMVGQVSGG-XTBMJTBDR Inactive AZO CRANBERRY TABS 1 tab daily [...] Measured Encounters Code Encounter Date Provider Facility CPT-14316 Level 3 Est. Patient 16:25:11 CDT Sushil Lopez [facility] CPT-58589 Level 3 Est. Patient 18:36:14 CDT Subhash Crowder DO [facility] Procedures Code Procedure Name Date Entry Date Standard Description CPT-00133 Fluzone Quadrivalent Intramuscular Suspension 0.5 ML 17: 11:14 CDT
[2018-08-20 18:35] LABS: BASOPHILS % (AUTO) 0 % (0-10); EOSINOPHILS # (AUTO) 0.2 10^3/uL (0.0-0.3); EOSINOPHILS % (AUTO) 2 % (0-10); HEMATOCRIT 34 % (35-52); HEMOGLOBIN 11.8 G/DL (11.5-16.0); LYMPHOCYTES # (AUTO) 1.8 X 10^3 (1.0-4.0); LYMPHOCYTES % (AUTO) 20 % (12-44); MEAN CORPUSCULAR HEMOGLOBIN 30 PG (25-34); MEAN CORPUSCULAR HGB CONC 35 G/DL (32-36); MEAN CORPUSCULAR VOLUME 86 FL (80-99); MEAN PLATELET VOLUME 9.9 FL (7.4-10.4); MONOCYTES # (AUTO) 0.4 X 10^3 (0.0-1.0); MONOCYTES % (AUTO) 5 % (0-12); NEUTROPHILS # (AUTO) 6.7 X 10^3 (1.8-7.8); NEUTROPHILS % (AUTO) 74 % (42-75); PLATELET COUNT 249 10^3/uL (130-400); RED BLOOD COUNT 3.97 10^6/uL (4.35-5.85); RED CELL DISTRIBUTION WIDTH 11.8 % (10.0-14.5); WHITE BLOOD COUNT 9.1 10^3/uL (4.3-11.0)
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
[2018-08-20 18:56] LABS: ALANINE AMINOTRANSFERASE 9 U/L (0-55); ALBUMIN 3.9 GM/DL (3.2-4.5); ALKALINE PHOSPHATASE 48 U/L (40-136); AMYLASE 38 U/L (25-125); BILIRUBIN,TOTAL 0.5 MG/DL (0.1-1.0); BUN/CREATININE RATIO 13; CALCIUM 8.7 MG/DL (8.5-10.1); CARBON DIOXIDE 18 MMOL/L (21-32); CHLORIDE 107 MMOL/L (98-107); CREATININE SERUM 0.68 MG/DL (0.60-1.30); GFR ESTIMATED > 60; GLUCOSE 91 MG/DL (70-105); LIPASE 25 U/L (8-78); POTASSIUM 3.4 MMOL/L (3.6-5.0); SODIUM 137 MMOL/L (135-145); TOTAL PROTEIN 6.9 GM/DL (6.4-8.2)
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
--- NOTE | 2018-08-20 19:34 | NUR ---
Report taken from Kay Mitchell RN.
[2018-08-20 19:53] LABS: AMPHETAMINE SCREEN, URINE NEGATIVE (NEGATIVE); BARBITURATE SCREEN URINE NEGATIVE (NEGATIVE); BENZODIAZEPINES SCREEN URINE NEGATIVE (NEGATIVE); CANNABINOID SCREEN, URINE NEGATIVE (NEGATIVE); COCAINE SCREEN URINE NEGATIVE (NEGATIVE); METHADONE STAT NEGATIVE (NEGATIVE); METHAMPHETAMINE SCREEN URINE S NEGATIVE (NEGATIVE); OPIATE SCREEN URINE NEGATIVE (NEGATIVE); OXYCODONE STAT NEGATIVE (NEGATIVE); PROPOXYPHENE STAT NEGATIVE (NEGATIVE); TRICYCLIC ANTIDEPRESSANTS SCRE NEGATIVE (NEGATIVE)
[2018-08-20 20:02] LABS: COLOR,URINE YELLOW
[2018-08-20 20:03] LABS: BILIRUBIN,URINE NEGATIVE (NEGATIVE); CLARITY,URINE VERY CLOUDY; GLUCOSE, URINE (UA) NEGATIVE (NEGATIVE); KETONES,URINE 4+ (NEGATIVE); LEUKOCYTE ESTERASE ,URINE 3+ (NEGATIVE); NITRITE,URINE NEGATIVE (NEGATIVE); PH,URINE 5 (5-9); PROTEIN,URINE 2+ (NEGATIVE); UROBILINOGEN,URINE NORMAL (NORMAL)
[2018-08-20 20:05] LABS: WBC,URINE 25-50 /HPF
[2018-08-20 20:06] LABS: BACTERIA,URINE LARGE /HPF; SQUAMOUS EPITHELIAL CELL,UR 25-50 /HPF
[2018-08-20 21:05] VITALS: BP 120/82
--- NOTE | 2018-08-20 21:06 | NUR ---
Pt. remains in the room at this time talking with [facility] deputy Katherine Monahan.
== END | disposition home or self-care (01) ==
LOC: EDUNIT# 18:05 → ER 18:06
DX: O9A.311 Physical abuse complicating pregnancy, first trimester (principal); O23.41 Unspecified infection of urinary tract in pregnancy, first trimester; O99.511 Diseases of the respiratory system complicating pregnancy, first trimester; J45.909 Unspecified asthma, uncomplicated; O99.341 Other mental disorders complicating pregnancy, first trimester; F41.9 Anxiety disorder, unspecified; F32.9 Major depressive disorder, single episode, unspecified; O26.891 Other specified pregnancy related conditions, first trimester; M54.2 Cervicalgia; R40.2142 Coma scale, eyes open, spontaneous, at arrival to emergency department; R40.2252 Coma scale, best verbal response, oriented, at arrival to emergency department; R40.2362 Coma scale, best motor response, obeys commands, at arrival to emergency department; O99.331 Smoking (tobacco) complicating pregnancy, first trimester; F17.210 Nicotine dependence, cigarettes, uncomplicated; Z87.440 Personal history of urinary (tract) infections; Z87.442 Personal history of urinary calculi; Z3A.10 10 weeks gestation of pregnancy; Z88.0 Allergy status to penicillin; Y04.8XXA Assault by other bodily force, initial encounter; Y07.03 Male partner, perpetrator of maltreatment and neglect; Y92.009 Unspecified place in unspecified non-institutional (private) residence as the place of occurrence of the external cause
CPT/HCPCS: 36415; 72040; 80053; 80306; 80320; 81000; 82150; 83690; 84702; 85025; 87088

== ENCOUNTER 2018-08-25 15:42 | Emergency (ER) | payer MEDICAID ==
[~2018-08-25] VITALS: Ht 165.1 cm; Wt 76.2 kg
[~2018-08-25 15:42] MED LIST changes: -ONDANSETRON 4 MG (ZOFRAN) ORAL DISSOLVE TAB PO ONE; -RX-NITROFURANTOIN 100 MG (MACROBID) CAP PPK#2 PO STA
[2018-08-25 16:08] LABS: BASOPHILS % (AUTO) 1 % (0-10); EOSINOPHILS # (AUTO) 0.1 10^3/uL (0.0-0.3); EOSINOPHILS % (AUTO) 1 % (0-10); HEMATOCRIT 37 % (35-52); HEMOGLOBIN 12.8 G/DL (11.5-16.0); LYMPHOCYTES # (AUTO) 1.6 X 10^3 (1.0-4.0); LYMPHOCYTES % (AUTO) 38 % (12-44); MEAN CORPUSCULAR HEMOGLOBIN 30 PG (25-34); MEAN CORPUSCULAR HGB CONC 35 G/DL (32-36); MEAN CORPUSCULAR VOLUME 85 FL (80-99); MEAN PLATELET VOLUME 10.3 FL (7.4-10.4); MONOCYTES # (AUTO) 0.3 X 10^3 (0.0-1.0); MONOCYTES % (AUTO) 6 % (0-12); NEUTROPHILS # (AUTO) 2.2 X 10^3 (1.8-7.8); NEUTROPHILS % (AUTO) 54 % (42-75); PLATELET COUNT 224 10^3/uL (130-400); RED BLOOD COUNT 4.31 10^6/uL (4.35-5.85); RED CELL DISTRIBUTION WIDTH 11.6 % (10.0-14.5); WHITE BLOOD COUNT 4.1 10^3/uL (4.3-11.0)
[2018-08-25 16:13] LABS: BILIRUBIN,URINE NEGATIVE (NEGATIVE); CLARITY,URINE CLEAR; COLOR,URINE YELLOW; GLUCOSE, URINE (UA) NEGATIVE (NEGATIVE); KETONES,URINE 2+ (NEGATIVE); LEUKOCYTE ESTERASE ,URINE 1+ (NEGATIVE); NITRITE,URINE NEGATIVE (NEGATIVE); PH,URINE 5 (5-9); PROTEIN,URINE 1+ (NEGATIVE); UROBILINOGEN,URINE 1 MG/DL (NORMAL)
[2018-08-25 16:26] LABS: ALANINE AMINOTRANSFERASE 7 U/L (0-55); ALBUMIN 3.9 GM/DL (3.2-4.5); ALKALINE PHOSPHATASE 46 U/L (40-136); BILIRUBIN,TOTAL 0.4 MG/DL (0.1-1.0); BUN/CREATININE RATIO 13; CALCIUM 9.2 MG/DL (8.5-10.1); CARBON DIOXIDE 18 MMOL/L (21-32); CHLORIDE 108 MMOL/L (98-107); CREATININE SERUM 0.64 MG/DL (0.60-1.30); GFR ESTIMATED > 60; GLUCOSE 93 MG/DL (70-105); POTASSIUM 3.3 MMOL/L (3.6-5.0); SODIUM 137 MMOL/L (135-145); TOTAL PROTEIN 6.9 GM/DL (6.4-8.2)
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
[2018-08-25 16:45] LABS: BACTERIA,URINE LARGE /HPF
--- NOTE | 2018-08-25 16:54 | Diagnostic Imaging Report ---
PROCEDURE: US OB single fetus <14 wks. TECHNIQUE: Multiple real-time grayscale images were obtained over the gravid uterus in various projections. INDICATION: Pain. FINDINGS: There is a single living intrauterine . [place]-rump length is 1.53 cm. This correlates with a gestational age of 8 weeks 0 days. Gestational sac is ovoid. There is normal volume of amniotic fluid. Placental location is indeterminate. Heart rate is 169 beats per minute. There is a 1.8 cm right ovarian cyst. Left adnexa is unremarkable. IMPRESSION: Single living intrauterine with a sonographically estimated gestational age of 8 weeks 0 days and estimated date of confinement of 04/06/2019. Dictated by: Dictated on workstation # [id number]
== END 2018-08-25 17:38 | disposition home or self-care (01) ==
LOC: ER 15:42 → EDUNIT# 15:42 → ER 17:38
DX: O9A.211 Injury, poisoning and certain other consequences of external causes complicating pregnancy, first trimester (principal); R10.30 Lower abdominal pain, unspecified; O20.0 Threatened abortion; O99.511 Diseases of the respiratory system complicating pregnancy, first trimester; J45.909 Unspecified asthma, uncomplicated; O99.331 Smoking (tobacco) complicating pregnancy, first trimester; F17.210 Nicotine dependence, cigarettes, uncomplicated; O99.341 Other mental disorders complicating pregnancy, first trimester; F41.9 Anxiety disorder, unspecified; F32.9 Major depressive disorder, single episode, unspecified; Z88.0 Allergy status to penicillin; Z3A.08 8 weeks gestation of pregnancy; Z87.448 Personal history of other diseases of urinary system; Z87.440 Personal history of urinary (tract) infections; Y04.8XXA Assault by other bodily force, initial encounter
CPT/HCPCS: 36415; 76801; 80053; 81000; 85025; 87088

== ENCOUNTER 2018-09-23 05:34 | Emergency (ER) | payer BC, MEDICAID ==
[~2018-09-23] VITALS: Ht 165.1 cm; Wt 71.2 kg
--- NOTE | 2018-09-23 06:00 | NUR ---
heart tones 150s
[2018-09-23 06:16] LABS: BILIRUBIN,URINE NEGATIVE (NEGATIVE); CLARITY,URINE CLEAR; COLOR,URINE YELLOW; GLUCOSE, URINE (UA) NEGATIVE (NEGATIVE); KETONES,URINE NEGATIVE (NEGATIVE); LEUKOCYTE ESTERASE ,URINE 3+ (NEGATIVE); NITRITE,URINE NEGATIVE (NEGATIVE); PH,URINE 5 (5-9); PROTEIN,URINE NEGATIVE (NEGATIVE); UROBILINOGEN,URINE NORMAL (NORMAL)
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
--- NOTE | 2018-09-23 06:25 | NUR ---
blood drawn out of left ac at this time
[2018-09-23 06:34] LABS: BACTERIA,URINE MODERATE /HPF; TRICHOMONAS,URINE MODERATE /HPF
[2018-09-23] MEDS ORDERED: NITR-65 PO (06:46)
--- NOTE | 2018-09-23 06:59 | NUR ---
Report was given to JESUS Navas at this time. Care was transferred at this time.
[2018-09-23 07:00] LABS: BASOPHILS % (AUTO) 0 % (0-10); EOSINOPHILS # (AUTO) 0.2 10^3/uL (0.0-0.3); EOSINOPHILS % (AUTO) 2 % (0-10); HEMATOCRIT 34 % (35-52); HEMOGLOBIN 11.7 G/DL (11.5-16.0); LYMPHOCYTES # (AUTO) 1.8 X 10^3 (1.0-4.0); LYMPHOCYTES % (AUTO) 19 % (12-44); MEAN CORPUSCULAR HEMOGLOBIN 30 PG (25-34); MEAN CORPUSCULAR HGB CONC 35 G/DL (32-36); MEAN CORPUSCULAR VOLUME 85 FL (80-99); MEAN PLATELET VOLUME 9.9 FL (7.4-10.4); MONOCYTES # (AUTO) 0.3 X 10^3 (0.0-1.0); MONOCYTES % (AUTO) 3 % (0-12); NEUTROPHILS # (AUTO) 7.4 X 10^3 (1.8-7.8); NEUTROPHILS % (AUTO) 77 % (42-75); PLATELET COUNT 240 10^3/uL (130-400); RED CELL DISTRIBUTION WIDTH 12.1 % (10.0-14.5); WHITE BLOOD COUNT 9.6 10^3/uL (4.3-11.0)
[2018-09-23 07:16] LABS: ALANINE AMINOTRANSFERASE 9 U/L (0-55); ALBUMIN 3.6 GM/DL (3.2-4.5); ALKALINE PHOSPHATASE 48 U/L (40-136); BILIRUBIN,TOTAL 0.3 MG/DL (0.1-1.0); BUN/CREATININE RATIO 10; CALCIUM 8.8 MG/DL (8.5-10.1); CARBON DIOXIDE 21 MMOL/L (21-32); CHLORIDE 107 MMOL/L (98-107); CREATININE SERUM 0.59 MG/DL (0.60-1.30); GFR ESTIMATED > 60; GLUCOSE 95 MG/DL (70-105); POTASSIUM 3.5 MMOL/L (3.6-5.0); SODIUM 138 MMOL/L (135-145); TOTAL PROTEIN 6.4 GM/DL (6.4-8.2)
[2018-09-23 08:01] LABS: AMPHETAMINE SCREEN, URINE NEGATIVE (NEGATIVE); BARBITURATE SCREEN URINE NEGATIVE (NEGATIVE); BENZODIAZEPINES SCREEN URINE NEGATIVE (NEGATIVE); CANNABINOID SCREEN, URINE NEGATIVE (NEGATIVE); COCAINE SCREEN URINE NEGATIVE (NEGATIVE); METHADONE STAT NEGATIVE (NEGATIVE); METHAMPHETAMINE SCREEN URINE S NEGATIVE (NEGATIVE); OPIATE SCREEN URINE NEGATIVE (NEGATIVE); OXYCODONE STAT NEGATIVE (NEGATIVE); PROPOXYPHENE STAT NEGATIVE (NEGATIVE); TRICYCLIC ANTIDEPRESSANTS SCRE NEGATIVE (NEGATIVE)
== END 2018-09-23 07:56 | disposition home or self-care (01) ==
LOC: EDUNIT# 05:34 → ER 05:36
DX: O23.41 Unspecified infection of urinary tract in pregnancy, first trimester (principal); O99.511 Diseases of the respiratory system complicating pregnancy, first trimester; J45.909 Unspecified asthma, uncomplicated; O99.341 Other mental disorders complicating pregnancy, first trimester; F41.9 Anxiety disorder, unspecified; F32.9 Major depressive disorder, single episode, unspecified; O99.331 Smoking (tobacco) complicating pregnancy, first trimester; F17.210 Nicotine dependence, cigarettes, uncomplicated; Z88.0 Allergy status to penicillin; Z87.442 Personal history of urinary calculi; Z87.440 Personal history of urinary (tract) infections; Z3A.11 11 weeks gestation of pregnancy
CPT/HCPCS: 36415; 80053; 80306; 81000; 83880; 85025; 87088; 87804

== ENCOUNTER 2018-10-27 15:38 | Emergency (ER) | payer BC, MEDICAID ==
[~2018-10-27] VITALS: Ht 165.1 cm; Wt 68.0 kg
--- NOTE | 2018-10-27 16:09 | ED GU-Female ---
General Chief Complaint: -Female Stated Complaint: 17 WEEKS PREG, BLEEDING,CRAMPING,NAUSEA Nursing Triage Note: TO TRIAGE WITH COMPLAINTS OF CRAMPING AND NAUSEA STARTING AT 3AM. VAGINAL BLEEDING STARTING [address]. APPX 17 WEEKS GESTATION. Nursing Sepsis Screen: No Definite Risk Source: patient Exam Limitations: no limitations History of Present Illness Date Seen by Provider: Oct 27, 2018 Time Seen by Provider: 16:04 Initial Comments 18-year-old female who presents to the emergency room with complaints of nausea , mild abdominal cramping that started at 3 AM this morning. She reports that 1 hour prior to arrival she did have a small amount of blood in the toilet when she urinated but has not had any more vaginal bleeding since. She is no longer having abdominal cramping or nausea, escribes the cramping pain is very similar to "normal -related stretching pains". She is [address] Rogers for OB. heart tones were 140 on arrival to the emergency room. Timing/Duration: just prior to arrival Associated Symptoms: other (vaginal bleeding) Allergies and Home Medications Allergies Coded Allergies: amoxicillin (Verified Allergy, Unknown, 05/22/15) penicillin (Verified Allergy, Unknown, 05/22/15) Home Medications Nitrofurantoin Monohyd/M-Cryst 100 Mg Capsule, 100 MG PO BID Prescribed by: LILLY CASTREJON on 09/23/18 0646 Patient Home Medication List Home Medication List Reviewed: Yes Review of Systems Review of Systems Constitutional: no symptoms reported, see HPI Genitourinary: see HPI, other (or vaginal bleeding) : Yes Expected Date of Delivery: Apr 06, 2019 All Other Systemes Reviewed Negative Unless Noted: Yes Past Sdgigpk-Izfefe-Iwlwbb Hx Past Med/Social Hx: Reviewed Nursing Past Med/Soc Hx Patient Social History Type Used: Cigarettes Recent Foreign Travel: No Contact w/Someone Who Travel: No Recent Infectious Disease Expo: No Recent Hopitalizations: No Immunizations Up To Date PED Vaccines UTD: Yes Seasonal Allergies Seasonal Allergies: No Past Medical History Surgeries: No Respiratory: Yes Asthma Cardiac: No Neurological: No : Yes Expected Date of Delivery: Apr 06, 2019 Reproductive Disorders: No Female Reproductive Disorders: Menstrual Problems Genitourinary: Yes Kidney Stones, UTI-Chronic Gastrointestinal: No Musculoskeletal: No Endocrine: No HEENT: No Cancer: No Psychosocial: Yes Anxiety, Depression Integumentary: No Blood Disorders: No Family Medical History Reviewed Nursing Family Hx No Pertinent Family Hx Physical Exam Vital Signs Vital Signs - First Documented 10/27/18 15:40 Temp 98.0 Pulse 87 Resp 16 B/P (MAP) 102/63 (76) Capillary Refill : Less Than 3 Seconds Height, Weight, BMI Height: 5'5.00" Weight: 150lbs. 0oz. 68.597068se; 21.09 BMI Method:Estimated General Appearance: WD/WN, no apparent distress Cardiovascular: normal peripheral pulses, regular rate, rhythm, no edema, no gallop, no JVD, no murmur Respiratory: chest non-tender, lungs clear, normal breath sounds, no respiratory distress, no accessory muscle use, respiratory distress Gastrointestinal: normal bowel sounds, non tender, soft, no organomegaly, no pulsatile mass, abnormal bowel sounds Back: normal inspection, no CVA tenderness, no vertebral tenderness, CVA tenderness (R), CVA tenderness (L) Extremities: normal capillary refill Neurologic/Psychiatric: alert, normal mood/affect, oriented x 3 Skin: normal color, warm/dry Progress/Results/Core Measures Suspected Sepsis Recent Fever Within 48 Hours: No Infection Criteria Present: Suspected New Infection New/Unexplained Altered Menta: No Sepsis Screen: No Definite Risk SIRS Temperature:98.0 Pulse: 87 Respiratory Rate: 16 Laboratory Tests 10/27/18 16:05: White Blood Count 7.0 Blood Pressure 102 /63 Mean: 76 Laboratory Tests 10/27/18 16:05: Creatinine 0.57L, Platelet Count 221, Total Bilirubin 0.4 Results/Orders Lab Results Laboratory Tests Test 10/27/18 16:05 10/27/18 16:15 Range/Units White Blood Count 7.0 4.3-11.0 10^3/uL Red Blood Count 3.94 L 4.35-5.85 10^6/uL Hemoglobin 11.5 11.5-16.0 G/DL Hematocrit 34 L 35-52 % Mean Corpuscular Volume 86 80-99 FL Mean Corpuscular Hemoglobin 29 25-34 PG Mean Corpuscular Hemoglobin Concent 34 32-36 G/DL Red Cell Distribution Width 12.8 10.0-14.5 % Platelet Count 221 130-400 10^3/uL Mean Platelet Volume 9.5 7.4-10.4 FL Neutrophils (%) (Auto) 70 42-75 % Lymphocytes (%) (Auto) 25 12-44 % Monocytes (%) (Auto) 4 0-12 % Eosinophils (%) (Auto) 1 0-10 % Basophils (%) (Auto) 0 0-10 % Neutrophils # (Auto) 4.9 1.8-7.8 X 10^3 Lymphocytes # (Auto) 1.7 1.0-4.0 X 10^3 Monocytes # (Auto) 0.3 0.0-1.0 X 10^3 Eosinophils # (Auto) 0.1 0.0-0.3 10^3/uL Basophils # (Auto) 0.0 0.0-0.1 10^3/uL Sodium Level 137 135-145 MMOL/L Potassium Level 3.4 L 3.6-5.0 MMOL/L Chloride Level 107 98-107 MMOL/L Carbon Dioxide Level 21 21-32 MMOL/L Anion Gap 9 5-14 MMOL/L Blood Urea Nitrogen 6 L 7-18 MG/DL Creatinine 0.57 L 0.60-1.30 MG/DL Estimat Glomerular Filtration Rate > 60 BUN/Creatinine Ratio 11 Glucose Level 79 70-105 MG/DL Calcium Level 9.0 8.5-10.1 MG/DL Corrected Calcium 9.4 8.5-10.1 MG/DL Total Bilirubin 0.4 0.1-1.0 MG/DL Aspartate Amino Transf (AST/SGOT) 14 5-34 U/L Alanine Aminotransferase (ALT/SGPT) 7 0-55 U/L Alkaline Phosphatase 46 40-136 U/L Total Protein 6.5 6.4-8.2 GM/DL Albumin 3.5 3.2-4.5 GM/DL Urine Color YELLOW Urine Clarity CLEAR Urine pH 8 5-9 Urine Specific [place] 1.010 L 1.016-1.022 Urine Protein NEGATIVE NEGATIVE Urine Glucose (UA) NEGATIVE NEGATIVE Urine Ketones NEGATIVE NEGATIVE Urine Nitrite NEGATIVE NEGATIVE Urine Bilirubin NEGATIVE NEGATIVE Urine Urobilinogen NORMAL NORMAL MG/DL Urine Leukocyte Esterase 2+ H NEGATIVE Urine RBC (Auto) NEGATIVE NEGATIVE Urine RBC NONE /HPF Urine WBC RARE /HPF Urine Squamous Epithelial Cells 2-5 /HPF Urine Crystals NONE /LPF Urine Bacteria TRACE /HPF Urine Casts NONE /LPF Urine Mucus SMALL H /LPF Urine Culture Indicated NO My Orders Orders - BERNOT,ANNELIESE Cbc With Automated Diff (10/27/18 15:49) Saline Lock/Iv-Start (10/27/18 15:49) Comprehensive Metabolic Panel (10/27/18 15:49) Heart Tones (10/27/18 15:51) Ua Culture If Indicated (10/27/18 16:02) Vital Signs/I&O 10/27/18 15:40 Temp 98.0 Pulse 87 Resp 16 B/P (MAP) 102/63 (76) Capillary Refill : Less Than 3 Seconds Blood Pressure Mean: 76 Progress Note : Time: 16:40 Progress Note I have seen and evaluated the patient. She has not had any more vaginal bleeding at this time. She was informed of her laboratory findings. She agrees with plan of care, plans for discharge, return precautions were given. Departure Impression Primary Impression: Threatened miscarriage Disposition: 01 HOME, SELF-CARE Condition: Stable/Unchanged Departure-Patient Inst. Decision time for Depature: 16:41 Referrals: CHELA,LOCAL PHYSICIAN (PCP) Primary Care Physician DM ROGERS DO (Family) Primary Care Physician Patient Instructions: Threatened Miscarriage (DC) Add. Discharge Instructions: You may use Tylenol for any pain or discomfort as directed by the bottle. Follow -up with Dr. ROGERS within 1 week for recheck. Return back to the emergency room if your vaginal bleeding returns, Worsening symptoms, or any other concerns as needed. All discharge instructions reviewed with patient and/or family. Voiced understanding. ANNELIESE CLARK Oct 27, 2018 16:08
[2018-10-27 16:12] LABS: BASOPHILS % (AUTO) 0 % (0-10); EOSINOPHILS # (AUTO) 0.1 10^3/uL (0.0-0.3); EOSINOPHILS % (AUTO) 1 % (0-10); HEMATOCRIT 34 % (35-52); HEMOGLOBIN 11.5 G/DL (11.5-16.0); LYMPHOCYTES # (AUTO) 1.7 X 10^3 (1.0-4.0); LYMPHOCYTES % (AUTO) 25 % (12-44); MEAN CORPUSCULAR HEMOGLOBIN 29 PG (25-34); MEAN CORPUSCULAR HGB CONC 34 G/DL (32-36); MEAN CORPUSCULAR VOLUME 86 FL (80-99); MEAN PLATELET VOLUME 9.5 FL (7.4-10.4); MONOCYTES # (AUTO) 0.3 X 10^3 (0.0-1.0); MONOCYTES % (AUTO) 4 % (0-12); NEUTROPHILS # (AUTO) 4.9 X 10^3 (1.8-7.8); NEUTROPHILS % (AUTO) 70 % (42-75); PLATELET COUNT 221 10^3/uL (130-400); RED CELL DISTRIBUTION WIDTH 12.8 % (10.0-14.5)
[2018-10-27 16:27] LABS: BILIRUBIN,URINE NEGATIVE (NEGATIVE); CLARITY,URINE CLEAR; COLOR,URINE YELLOW; GLUCOSE, URINE (UA) NEGATIVE (NEGATIVE); KETONES,URINE NEGATIVE (NEGATIVE); LEUKOCYTE ESTERASE ,URINE 2+ (NEGATIVE); NITRITE,URINE NEGATIVE (NEGATIVE); PH,URINE 8 (5-9); PROTEIN,URINE NEGATIVE (NEGATIVE); UROBILINOGEN,URINE NORMAL (NORMAL)
[2018-10-27 16:30] LABS: ALANINE AMINOTRANSFERASE 7 U/L (0-55); ALBUMIN 3.5 GM/DL (3.2-4.5); ALKALINE PHOSPHATASE 46 U/L (40-136); BILIRUBIN,TOTAL 0.4 MG/DL (0.1-1.0); BUN/CREATININE RATIO 11; CARBON DIOXIDE 21 MMOL/L (21-32); CHLORIDE 107 MMOL/L (98-107); CREATININE SERUM 0.57 MG/DL (0.60-1.30); GFR ESTIMATED > 60; GLUCOSE 79 MG/DL (70-105); POTASSIUM 3.4 MMOL/L (3.6-5.0); SODIUM 137 MMOL/L (135-145); TOTAL PROTEIN 6.5 GM/DL (6.4-8.2)
[2018-10-27 16:34] LABS: BACTERIA,URINE TRACE /HPF; WBC,URINE RARE /HPF
[2018-10-27 16:46] VITALS: BP 100/83
== END 2018-10-27 16:46 | disposition home or self-care (01) ==
LOC: EDUNIT# 15:38 → ER 15:40
DX: O20.0 Threatened abortion (principal); O99.512 Diseases of the respiratory system complicating pregnancy, second trimester; J45.909 Unspecified asthma, uncomplicated; O99.342 Other mental disorders complicating pregnancy, second trimester; F41.9 Anxiety disorder, unspecified; F32.9 Major depressive disorder, single episode, unspecified; Z87.440 Personal history of urinary (tract) infections; Z87.442 Personal history of urinary calculi; Z3A.17 17 weeks gestation of pregnancy; Z88.0 Allergy status to penicillin
CPT/HCPCS: 36415; 80053; 81000; 85025

== ENCOUNTER → 2018-11-16 | Outpatient (CLI) | payer MEDICAID ==
--- NOTE | 2018-11-16 12:59 | Diagnostic Imaging Report ---
INDICATION: survey. TECHNIQUE: Multiple real-time grayscale images were obtained over the gravid uterus. COMPARISON: 08/25/2018. FINDINGS: There is a single live fetus in cephalic presentation. heart rate was recorded at 144 beats per minute. The placenta is posterior. The amniotic fluid volume is normal. Cervical length is 4 cm. survey shows kidneys, bladder, and stomach to be unremarkable. The brain is unremarkable. There is a four-chamber heart. There is a three-vessel cord with normal insertion. The spine is unremarkable. Biometrical measurements are as follows: Biparietal 4.66 cm, age 20 weeks 1 days. Head circumference 17.33 cm, age 20 weeks 0 days. Abdominal circumference 15.50 cm, age 20 weeks 5 days. Femur length 3.22 cm, age 20 weeks 1 days. Sonographic estimate age: 20 weeks 2 days. Sonographic estimated date of delivery: 04/03/2019. Estimated Weight: 346 gm (+/- 51 gm). LMP percentile: 72%. heart rate: 144 beats per minute. number: 1 of 1. IMPRESSION: Single live IUP at 20 weeks 2 days gestational age. This demonstrates normal interval growth when compared with prior ultrasound. No complicating features are detected. Dictated by: Dictated on workstation # [id number]
== END ==
LOC: RAD 11:03
PROVIDERS: ATTEND Obstetrics & Gynecology
DX: Z36.89 Encounter for other specified antenatal screening (principal); Z3A.20 20 weeks gestation of pregnancy
CPT/HCPCS: 76805

== ENCOUNTER 2019-02-12 13:16 | Outpatient (CLI) | payer BC, MEDICAID ==
[~2019-02-12] VITALS: Ht 165.1 cm; Wt 78.9 kg
--- NOTE | 2019-02-12 13:00 | NUR ---
REBECCA BROWN presented to unit via amb from home, accompanied by s.o.and 1 yr old, with c/o BACK PAIN, HEADACHE, FEVER. REBECCA BROWN weighed, gowned, voided, and to bed. EFHM and TOCO applied, VS taken. REBECCA BROWN oriented to bed controls, call light, TV, heat, and A/C controls.
[2019-02-12 13:25] VITALS: BP 101/58
--- NOTE | 2019-02-12 14:00 | NUR ---
DR. ROGERS HERE TO SEE PT. SVE. FT/THICK/POSTERIOR AND HIGH. STOOL PALPABLE. PT STATES SHE HASN'T HAD A BM FOR 1 WEEK.
[2019-02-12 14:08] LABS: BILIRUBIN,URINE NEGATIVE (NEGATIVE); CLARITY,URINE VERY CLOUDY; COLOR,URINE YELLOW; GLUCOSE, URINE (UA) NEGATIVE (NEGATIVE); KETONES,URINE 4+ (NEGATIVE); LEUKOCYTE ESTERASE ,URINE 3+ (NEGATIVE); NITRITE,URINE POSITIVE (NEGATIVE); PH,URINE 6 (5-9); PROTEIN,URINE 3+ (NEGATIVE); UROBILINOGEN,URINE NORMAL (NORMAL)
[2019-02-12] MEDS ORDERED: D5 LR IV SOLUTION 1,000 ML IV ONE (14:14)
[2019-02-12] MEDS ORDERED: NS IV 500 ML 500 ML ONE (14:14)
[2019-02-12] MEDS ORDERED: morphine INJ 10 MG/ML 1ML (SYR OR VIAL) IVP STA (14:14)
[2019-02-12] MEDS ORDERED: ONDANSETRON 4 MG/2 ML (SDV) Z0FRAN IVP ONE (14:15)
[2019-02-12] MEDS ORDERED: D5 LR IV SOLUTION 1,000 ML IV SCH (14:15)
[2019-02-12] MEDS ORDERED: ONDANSETRON 4 MG/2 ML (SDV) Z0FRAN ONE (14:15)
[2019-02-12] MEDS ORDERED: NS IV 500 ML 500 ML IV ONE (14:15)
[2019-02-12 14:25] VITALS: BP 109/57
[2019-02-12 14:25] LABS: BACTERIA,URINE LARGE /HPF; WBC,URINE TNTC /HPF
[2019-02-12 14:48] LABS: AMPHETAMINE SCREEN, URINE NEGATIVE (NEGATIVE); BARBITURATE SCREEN URINE NEGATIVE (NEGATIVE); BENZODIAZEPINES SCREEN URINE NEGATIVE (NEGATIVE); CANNABINOID SCREEN, URINE NEGATIVE (NEGATIVE); COCAINE SCREEN URINE NEGATIVE (NEGATIVE); METHADONE STAT NEGATIVE (NEGATIVE); METHAMPHETAMINE SCREEN URINE S NEGATIVE (NEGATIVE); OPIATE SCREEN URINE NEGATIVE (NEGATIVE); OXYCODONE STAT NEGATIVE (NEGATIVE); PROPOXYPHENE STAT NEGATIVE (NEGATIVE); TRICYCLIC ANTIDEPRESSANTS SCRE NEGATIVE (NEGATIVE)
[2019-02-12 15:04] LABS: BASOPHILS % (AUTO) 0 % (0-10); EOSINOPHILS % (AUTO) 0 % (0-10); HEMATOCRIT 29 % (35-52); HEMOGLOBIN 9.7 G/DL (11.5-16.0); LYMPHOCYTES # (AUTO) 0.6 X 10^3 (1.0-4.0); LYMPHOCYTES % (AUTO) 5 % (12-44); MEAN CORPUSCULAR HEMOGLOBIN 29 PG (25-34); MEAN CORPUSCULAR HGB CONC 34 G/DL (32-36); MEAN CORPUSCULAR VOLUME 86 FL (80-99); MEAN PLATELET VOLUME 10.8 FL (7.4-10.4); MONOCYTES # (AUTO) 1.2 X 10^3 (0.0-1.0); MONOCYTES % (AUTO) 10 % (0-12); NEUTROPHILS # (AUTO) 9.8 X 10^3 (1.8-7.8); NEUTROPHILS % (AUTO) 85 % (42-75); PLATELET COUNT 137 10^3/uL (130-400); RED CELL DISTRIBUTION WIDTH 11.6 % (10.0-14.5); WHITE BLOOD COUNT 11.6 10^3/uL (4.3-11.0)
[2019-02-12 15:21] LABS: ALANINE AMINOTRANSFERASE 13 U/L (0-55); ALBUMIN 2.7 GM/DL (3.2-4.5); ALKALINE PHOSPHATASE 85 U/L (40-136); BILIRUBIN,TOTAL 0.6 MG/DL (0.1-1.0); BUN/CREATININE RATIO 14; CALCIUM 8.4 MG/DL (8.5-10.1); CARBON DIOXIDE 20 MMOL/L (21-32); CHLORIDE 99 MMOL/L (98-107); CREATININE SERUM 0.78 MG/DL (0.60-1.30); GFR ESTIMATED > 60; GLUCOSE 88 MG/DL (70-105); POTASSIUM 3.2 MMOL/L (3.6-5.0); SODIUM 130 MMOL/L (135-145)
[2019-02-12 15:33] LABS: BAND NEUTROPHILS 1 %; BASOPHILS % (MANUAL) 0 %; EOSINOPHILS % (MANUAL) 0 %; LYMPHOCYTES % (MANUAL) 6 %; MONOCYTES % (MANUAL) 2 %; NEUTROPHILS % (MANUAL) 91 %
[2019-02-12 15:34] LABS: RBC MORPH NORMAL
[2019-02-12] MEDS ORDERED: cefTRIAXone 1,000 MG IV (ROCEPHIN) VIAL ONE (15:46)
--- NOTE | 2019-02-12 15:52 | Diagnostic Imaging Report ---
INDICATION: Abdominal pain and back pain. Study is performed to evaluate amniotic fluid index as well as the placenta and growth. TECHNIQUE: Multiple real-time grayscale images were obtained over the gravid uterus. COMPARISON: 11/16/2018. FINDINGS: There is a single live fetus in cephalic presentation. heart rate was recorded at 146 beats per minute. Placenta is fundal. Amniotic fluid index is 21.7 cm. Biometrical measurements are as follows: Biparietal 8.47 cm, age 34 weeks 1 days. Head circumference 30.07 cm, age 33 weeks 3 days. Abdominal circumference 28.94 cm, age 33 weeks 0 days. Femur length 6.26 cm, age 32 weeks 3 days. Sonographic estimate age: 33 weeks 2 days. Sonographic estimated date of delivery: 03/31/2019. Estimated Weight: 2082 gm (+/- 304 gm). LMP percentile: 56%. heart rate: 146 beats per minute. number: 1 of 1. IMPRESSION: Single live IUP 33 weeks gestational age showing normal interval growth when compared with prior study from 11/16/2018. No complicating features are identified. Dictated by: Dictated on workstation # [id number]
[2019-02-12] MEDS ORDERED: WATER (STERILE) FOR INJECTION 10 ML ONE (15:57)
[2019-02-12] MEDS ORDERED: cefTRIAXone FOR IV USE 1,000 MG in WATER (STERILE) FOR INJECTION 10 ML IV NR (16:00)
[2019-02-12] MEDS ORDERED: ACETAMINOPHEN 500 MG TAB (TYLENOL) ONE (17:16)
[2019-02-12 17:25] VITALS: BP 106/55
[2019-02-12] MEDS ORDERED: ACETAMINOPHEN 500 MG TAB (TYLENOL) PO ONE (17:30)
--- NOTE | 2019-02-12 18:30 | NUR ---
EATING A REGULAR DIET. DENIES FEELING CTXS. S.O. AND 1 YR OLD AT BEDSIDE.
--- NOTE | 2019-02-12 18:52 | NUR ---
MESSAGE SENT TO DR. ROGERS WITH AN UPDATE ON PT'S CONDITION.
[2019-02-12] MEDS ORDERED: CEPH-507 PO (19:32)
--- NOTE | 2019-02-12 20:10 | NUR ---
Discharge packet given and explained, understanding voiced per pt. waiting on s/o to return from pharmacy with a/b tx. Pt discharged at this time.
== END 2019-02-12 20:10 | disposition home or self-care (01) ==
LOC: WSo 13:16 → LDRP 13:19 → WSo 20:10
PROVIDERS: ATTEND Obstetrics & Gynecology
DX: R11.0 Nausea (principal); R51 Headache; M54.9 Dorsalgia, unspecified; Z3A.32 32 weeks gestation of pregnancy
CPT/HCPCS: 36415; 76816; 80053; 80306; 81000; 85007; 85027; 87088

== ENCOUNTER 2019-03-25 09:33 | Inpatient (IN) | payer BC, MEDICAID ==
[2019-03-25] VITALS (53 sets, daily range): BP systolic 81–137; BP diastolic 49–77
[~2019-03-25] VITALS: Ht 165.1 cm; Wt 78.9 kg
--- NOTE | 2019-03-25 09:25 | NUR ---
REBECCA BROWN presented to unit via ambulation from home, accompanied by self, with c/o CONTRACTIONS. REBECCA BROWN weighed, gowned, voided, and to bed. EFHM and TOCO applied, VS taken. REBECCA BROWN oriented to bed controls, call light, TV, heat, and A/C controls.
[~2019-03-25 09:33] MED LIST changes: +CEPH-507 PO; -NORG1TAB7 PO; +NORG1TAB87 PO
--- NOTE | 2019-03-25 09:42 | NUR ---
dr manrique notified of patient arrival and c/o using SBAR. new orders received.
[2019-03-25] MEDS ORDERED: D5 LR IV SOLUTION 1,000 ML IV ONE (10:19)
[2019-03-25] MEDS ORDERED: D5 LR IV SOLUTION 1,000 ML IV SCH (10:27)
[2019-03-25] MEDS ORDERED: MINERAL OIL CONCENTRATE 99.9% 15 ML UDC TOP PRN (10:30)
[2019-03-25] MEDS ORDERED: LACTATED RINGERS 1,000 ML IV ONE (10:31)
[2019-03-25 10:38] LABS: BILIRUBIN,URINE NEGATIVE (NEGATIVE); CLARITY,URINE CLEAR; COLOR,URINE YELLOW; GLUCOSE, URINE (UA) NEGATIVE (NEGATIVE); KETONES,URINE NEGATIVE (NEGATIVE); LEUKOCYTE ESTERASE ,URINE 3+ (NEGATIVE); NITRITE,URINE NEGATIVE (NEGATIVE); PH,URINE 6.5 (5-9); PROTEIN,URINE NEGATIVE (NEGATIVE); UROBILINOGEN,URINE NORMAL (NORMAL)
[2019-03-25 10:48] LABS: BASOPHILS % (AUTO) 0 % (0-10); EOSINOPHILS # (AUTO) 0.1 10^3/uL (0.0-0.3); EOSINOPHILS % (AUTO) 1 % (0-10); HEMATOCRIT 31 % (35-52); HEMOGLOBIN 10.2 G/DL (11.5-16.0); LYMPHOCYTES # (AUTO) 3.2 X 10^3 (1.0-4.0); LYMPHOCYTES % (AUTO) 38 % (12-44); MEAN CORPUSCULAR HEMOGLOBIN 28 PG (25-34); MEAN CORPUSCULAR HGB CONC 33 G/DL (32-36); MEAN CORPUSCULAR VOLUME 87 FL (80-99); MONOCYTES # (AUTO) 0.3 X 10^3 (0.0-1.0); MONOCYTES % (AUTO) 3 % (0-12); NEUTROPHILS # (AUTO) 4.9 X 10^3 (1.8-7.8); NEUTROPHILS % (AUTO) 58 % (42-75); PLATELET COUNT 285 10^3/uL (130-400); RED CELL DISTRIBUTION WIDTH 13.5 % (10.0-14.5); WHITE BLOOD COUNT 8.5 10^3/uL (4.3-11.0)
[2019-03-25 10:56] LABS: BACTERIA,URINE FEW /HPF; RBC,URINE 0-2 /HPF; WBC,URINE >100 /HPF
[2019-03-25 10:57] LABS: TRICHOMONAS,URINE FEW /HPF
--- OUTSIDE RECORDS SUMMARY | 2019-03-25 10:59 | XMS REPORT ---
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 Welder Name Role Phone Migration, Doctor Unavailable Unavailable PROBLEMS Type Condition ICD9-CM Code TCA12-OW Code Onset Dates Condition Status SNOMED Code Problem Dysuria 788.1 Active 88064251 Problem Excessive or frequent menstruation 626.2 Active 999861529 Problem Impulse control disorder F63.9 Active 70252984 Problem Abdominal pain, right upper quadrant R10.11 Active 641646590 Problem Major depressive disorder, recurrent, moderate F33.1 Active 973727806 Problem 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 Active 63728313 Problem Generalized anxiety disorder F41.1 Active 04270457 Problem Mastodynia N64.4 Active 39015025 Problem Abdominal pain, unspecified abdominal location R10.9 Active 27692383 Problem Oral contraceptive pill surveillance Z30.41 Active 816291196 ALLERGIES No Information ENCOUNTERS Encounter Location Date Diagnosis [facility] [id number] [place] [id number] December, [facility] [id number] [place] [phone] December, [facility] [id number] [place] [phone] December, Dizziness R42 and Urinary tract infection without hematuria, site unspecified N39.0 [facility] [id number] [id number] Nov, [facility] [id number] [place] [id number] Nov, [facility] [id number] [place] [phone] Oct, [facility] [id number] [place] [id number] Oct, [facility] [address] [id number] [phone] Sep, [facility] [address] [id number] [id number] Aug, [facility] [id number] [id number] Aug, [facility] [address] [address] Jul, Encounter for test, result unknown Z32.00 [facility] [address] [place], [place] [id number] [place] [phone] May, 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 [facility] [address] [place], [place] [id number] [place] [phone] May, Genital ulcer, female N76.6 [facility] [address] [place] [id number] [place] [phone] 17 May, 2018 Pelvic pain R10.2 [facility] [address] [place], [place] [id number] [place] [phone] Mar, Urticaria L50.9 and Insect bite, subsequent encounter W57.XXXD [facility] [address] [place], [place] [id number] [place] [id number] Apr, control counseling Z30.9 ; Encounter for Depo-Provera contraception Z30.42 and Generalized anxiety disorder F41.1 [facility] [address] [place] [id number] [place] [phone] Apr, Major depressive disorder, recurrent, moderate F33.1 and Impulse control disorder F63.9 [facility] [address] [place] [id number] Apr, Oral contraceptive prescribed Z30.011 ; Generalized anxiety disorder F41.1 and Major depressive disorder with single episode, remission status unspecified F32.9 [facility] [address] [place] [phone] Apr, Major depressive disorder, recurrent, moderate F33.1 and Impulse control disorder F63.9 [facility] [address] [id number] [id number] Mar, [facility] [address] [id number] [phone] Mar, [id number] [place] [phone] Sep, [address] [place] [id number] [place] [phone] Sep, Irregular menses N92.6 and Oral contraceptive pill surveillance Z30.41 [place] [id number] [place] [phone] Sep, Gastro-esophageal reflux disease without esophagitis K21.9 ; Generalized anxiety disorder F41.1 ; Diarrhea R19.7 ; Hematochezia K92.1 ; Menorrhagia with irregular cycle N92.1 and Abdominal pain, unspecified abdominal location R10.9 [place] [address] [place] [phone] Jul, [place] [id number] [place] [phone] Jul, Oral contraceptive pill surveillance Z30.41 and Abdominal pain, unspecified abdominal location R10.9 [place] [address] [place] [phone] Jul, Encounter for well child visit with abnormal findings Z00.121 ; Exercise counseling Z71.89 ; Encounter for immunization Z23 ; Dietary counseling Z71.3 ; High risk medication use Z79.899 and Generalized anxiety disorder F41.1 [place] [address] [place] [phone] 14 Apr, 2015 [address] [place] [phone] 15 Jan, 2015 Constipation 564.00 ; GERD (gastroesophageal reflux disease) 530.81 ; Depression 311 and Anxiety 300.00 [facility] [address] [address] Nov, [facility] [address] [id number] [address] Nov, [facility] [id number] [address] Aug, [facility] [id number] [place] [phone] Aug, [facility] [address] [place] [id number] [place] [id number] Aug, [facility] [id number] [place] [phone] Aug, [id number] [place] [phone] Aug, [facility] [id number] [place] [phone] Aug, [facility] [id number] [place] [phone] Feb, [id number] [place] [phone] Feb, [facility] [address] [address] Jan, [facility] [address] [address] Jan, [id number] [phone] December, [facility] [id number] [address] December, IMMUNIZATIONS No Known Immunizations SOCIAL HISTORY Never Assessed REASON FOR VISIT PLAN OF CARE VITAL SIGNS Height 65 in 2014-09-02 Weight 162.3 lbs 2014-09-02 Temperature 97.5 degrees Fahrenheit 2014-09-02 Heart Rate 78 bpm 2014-09-02 Respiratory Rate 18 2014-09-02 Blood pressure systolic 108 mmHg 2014-09-02 Blood pressure diastolic 66 mmHg 2014-09-02 MEDICATIONS Unknown Medications RESULTS No Results PROCEDURES Procedure Date Ordered Result Body Site COMPLETE CBC W/AUTO DIFF WBC Sep 02, 2014 MEASURE BLOOD OXYGEN LEVEL Sep 02, 2014 COMPREHEN METABOLIC PANEL Sep 02, 2014 URINALYSIS, AUTO, W/O SCOPE Sep 02, 2014 VENIPUNCT, ROUTINE* Sep 02, 2014 INSTRUCTIONS MEDICATIONS ADMINISTERED No Known Medications MEDICAL (GENERAL) HISTORY Type Description Date Medical History indigestion problems Medical History menstrual problems Medical History anxiety Surgical History oral surgery Hospitalization History attempting to commit suicide 2013
--- OUTSIDE RECORDS SUMMARY | 2019-03-25 11:00 | XMS REPORT ---
Author Author Migration, Doctor Organization [facility] Address Unknown Phone Unavailable Care Team Providers Care Grout Pump Operator Name Role Phone Migration, Doctor Unavailable Unavailable PROBLEMS Type Condition ICD9-CM Code [id number] Code Onset Dates Condition Status SNOMED Code Problem Dysuria 788.1 Active 54354089 Problem Excessive or frequent menstruation 626.2 Active 309863702 Problem Impulse control disorder F63.9 Active 49700787 Problem Abdominal pain, right upper quadrant R10.11 Active 039497828 Problem Major depressive disorder, recurrent, moderate F33.1 Active 212510895 Problem 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 Active 85192956 Problem Generalized anxiety disorder F41.1 Active 91529693 Problem Mastodynia N64.4 Active 41502578 Problem Abdominal pain, unspecified abdominal location R10.9 Active 29176345 Problem Oral contraceptive pill surveillance Z30.41 Active 039870839 ALLERGIES No Information ENCOUNTERS Encounter Location Date Diagnosis [facility] [id number] [place] [address] [id number] Nov, [facility] [id number] [place] [address] [id number] Oct, [facility] [id number] [place] [address] [id number] Oct, [facility] [id number] [place] [address] [id number] Sep, [facility] [address] [id number] [phone] Aug, [facility] [id number] [place] [address] [id number] Aug, [facility] [address]00565[address], [place] [address] Jul, Encounter for test, result unknown Z32.00 [facility] [address] [id number], [place] [address] May, 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 [facility] [address] [id number] [address] May, Genital ulcer, female N76.6 [facility] [id number], [place] [address] 17 May, 2018 Pelvic pain R10.2 [facility] [address] [place], [id number], [place] [address] 14 Mar, 2018 Urticaria L50.9 and Insect bite, subsequent encounter W57.XXXD [facility] [address] [place], [place] [id number] [place] [address] [id number] 09 Apr, 2016 control counseling Z30.9 ; Encounter for Depo-Provera contraception Z30.42 and Generalized anxiety disorder F41.1 [facility] [address] [place] [id number] [place] [address] [id number] Apr, Major depressive disorder, recurrent, moderate F33.1 and Impulse control disorder F63.9 [facility] [address] [place] [address] [place] [address] [id number] Apr, Oral contraceptive prescribed Z30.011 ; Generalized anxiety disorder F41.1 and Major depressive disorder with single episode, remission status unspecified F32.9 [facility] [address] [place], [place] [address] [id number] Apr, Major depressive disorder, recurrent, moderate F33.1 and Impulse control disorder F63.9 [facility] [address] [place], [place] [address] [phone] Mar, [facility] [id number] [place] [address] [id number] Mar, [facility] [address]00565100[place], [place] [address] Sep, [facility] [id number] [place] [address] 18 Sep, 2015 Irregular menses N92.6 and Oral contraceptive pill surveillance Z30.[address] [address] 18 Sep, 2015 Gastro-esophageal reflux disease without esophagitis K21.9 ; Generalized anxiety disorder F41.1 ; Diarrhea R19.7 ; Hematochezia K92.1 ; Menorrhagia with irregular cycle N92.1 and Abdominal pain, unspecified abdominal location R10.9 [place] [address] [address] 08 Jul, [address] [address] Jul, Oral contraceptive pill surveillance Z30.41 and Abdominal pain, unspecified abdominal location R10.[address] [address] Jul, Encounter for well child visit with abnormal findings Z00.121 ; Exercise counseling Z71.89 ; Encounter for immunization Z23 ; Dietary counseling Z71.3 ; High risk medication use Z79.899 and Generalized anxiety disorder F41.[address] [address] 14 Apr, 2015 [place] [id number] [place] [address] Jan, Constipation 564.00 ; GERD (gastroesophageal reflux disease) 530.81 ; Depression 311 and Anxiety 300.00 [place] [id number] [place] [phone] Nov, [address] [address] Nov, [place] [id number] [place] [address] Aug, [facility] [id number] [place] [address] [phone] Aug, [facility] [address] [id number] [phone] Aug, [facility] [address]65100[place], [place] [address] Aug, [facility] [id number], [place] [id number] Aug, [facility] [address]65[address], [place] [address] Aug, [facility] [address], [place] [address] Feb, [facility] [address] [place] [address] [id number] Feb, [facility] [address], [place] [address] Jan, [facility] [address]65100[place], [place] [address] Jan, [facility] [address] [place], [place] [address]B[place], [place] [phone] December, [facility] [address]65[address], [place] [address] December, IMMUNIZATIONS No Known Immunizations SOCIAL HISTORY Never Assessed REASON FOR VISIT EMR-[facility] PLAN OF CARE VITAL SIGNS MEDICATIONS Unknown Medications RESULTS No Results PROCEDURES No Known procedures INSTRUCTIONS MEDICATIONS ADMINISTERED No Known Medications MEDICAL (GENERAL) HISTORY Type Description Date Medical History indigestion problems Medical History menstrual problems Medical History anxiety Surgical History oral surgery Hospitalization History attempting to commit suicide 2013
--- OUTSIDE RECORDS SUMMARY | 2019-03-25 11:00 | XMS REPORT ---
Author Author Migration, Doctor Organization [facility] Address Unknown Phone Unavailable Care Team Providers Care Urology Physician Assistant Name Role Phone Migration, Doctor Unavailable Unavailable PROBLEMS Type Condition ICD9-CM Code [id number] Code Onset Dates Condition Status SNOMED Code Problem Dysuria 788.1 Active 40817711 Problem Excessive or frequent menstruation 626.2 Active 544588185 Problem Impulse control disorder F63.9 Active 47141194 Problem Abdominal pain, right upper quadrant R10.11 Active 719350402 Problem Major depressive disorder, recurrent, moderate F33.1 Active 949955661 Problem 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 Active 38255801 Problem Generalized anxiety disorder F41.1 Active 98540458 Problem Mastodynia N64.4 Active 01918722 Problem Abdominal pain, unspecified abdominal location R10.9 Active 49078716 Problem Oral contraceptive pill surveillance Z30.41 Active 876537937 ALLERGIES No Information ENCOUNTERS Encounter Location Date Diagnosis [facility] [id number] [place] [address] [id number] December, [facility] [id number] [place] [address] December, [facility] [id number] [phone] December, Dizziness R42 and Urinary tract infection without hematuria, site unspecified N39.0 [facility] [id number] [phone] Nov, [facility] [id number] [place] [address] [id number] Nov, [facility] [id number] [place] [address] [id number] Oct, [facility] [id number] [place] [address] [phone] Oct, [facility] [address] [id number] [id number] Sep, [facility] [address] [id number] [phone] Aug, [facility] [id number], [place] [phone] Aug, [facility] [address]65[address], [place] [address] Jul, Encounter for test, result unknown Z32.00 [facility] [address] [place], [place] [id number] [place] [phone] May, 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 [facility] [address] [place] [address] [place] [address] May, Genital ulcer, female N76.6 [facility] [address] [place] [address] [place] [phone] 17 May, 2018 Pelvic pain R10.2 [facility] [address] [place] [address] [place] [address] Mar, Urticaria L50.9 and Insect bite, subsequent encounter W57.XXXD [facility] [address] [place] [id number] [place] [address] [id number] Apr, control counseling Z30.9 ; Encounter for Depo-Provera contraception Z30.42 and Generalized anxiety disorder F41.1 [facility] [address] [place] [id number] [place] [address] [id number] Apr, Major depressive disorder, recurrent, moderate F33.1 and Impulse control disorder F63.9 [facility] [address] [place] [address] [phone] Apr, Oral contraceptive prescribed Z30.011 ; Generalized anxiety disorder F41.1 and Major depressive disorder with single episode, remission status unspecified F32.9 [facility] [address] [place] [address] [id number] Apr, Major depressive disorder, recurrent, moderate F33.1 and Impulse control disorder F63.9 [facility] [address] [id number] [id number] Mar, [facility] [address] [id number] [phone] Mar, [place] [address] [place] [address] Sep, [place] [address] [place] [address] Sep, Irregular menses N92.6 and Oral contraceptive pill surveillance Z30.41 [place] [id number] [address] Sep, Gastro-esophageal reflux disease without esophagitis K21.9 ; Generalized anxiety disorder F41.1 ; Diarrhea R19.7 ; Hematochezia K92.1 ; Menorrhagia with irregular cycle N92.1 and Abdominal pain, unspecified abdominal location R10.9 [place] [address] [phone] Jul, [place] [id number] [place] [phone] Jul, Oral contraceptive pill surveillance Z30.41 and Abdominal pain, unspecified abdominal location R10.9 [place] [address] [phone] Jul, Encounter for well child visit with abnormal findings Z00.121 ; Exercise counseling Z71.89 ; Encounter for immunization Z23 ; Dietary counseling Z71.3 ; High risk medication use Z79.899 and Generalized anxiety disorder F41.1 [place] [address] [phone] 14 Apr, 2015 [place] [address] [address] [phone] 15 Jan, 2015 Constipation 564.00 ; GERD (gastroesophageal reflux disease) 530.81 ; Depression 311 and Anxiety 300.00 [facility] [address] [id number], [place] [address] Nov, [facility] [id number] [phone] Nov, [facility] [id number] [place] [phone] Aug, [place] [id number] [place] [address] [phone] Aug, [place] [id number] [place] [address] [phone] Aug, [facility] [id number] [phone] Aug, [place] [id number] [place] [address] [phone] Aug, [facility] [id number] [place] [phone] Aug, [facility] [id number] [phone] Feb, [place] [id number] [place] [address] [phone] Feb, [place] [id number] [phone] Jan, [facility] [id number] [place] [phone] Jan, [place] [id number] [place] [address] [phone] December, [facility] [id number] [place] [phone] December, IMMUNIZATIONS No Known Immunizations SOCIAL HISTORY Never Assessed REASON FOR VISIT PLAN OF CARE VITAL SIGNS MEDICATIONS Unknown Medications RESULTS No Results PROCEDURES No Known procedures INSTRUCTIONS MEDICATIONS ADMINISTERED No Known Medications MEDICAL (GENERAL) HISTORY Type Description Date Medical History indigestion problems Medical History menstrual problems Medical History anxiety Surgical History oral surgery Hospitalization History attempting to commit suicide 2013
[2019-03-25] MEDS ORDERED: SUFENTA 0.6MCG/ML BUPIVA 0.125 100 ML ONE (11:56)
--- NOTE | 2019-03-25 12:29 | History & Physical-OB ---
OB - Chief Complaint & HPI Date/Time Date of Admission: Date of Admission: Mar 25, 2019 at 09:42 Date seen by a Provider: Mar 25, 2019 Time Seen by a Provider: 12:15 Chief Complaint/History OB-Reason for Admission/Chief: Onset of Labor Hx : 2 Hx Para: 1 Expected Date of Delivery: Apr 06, 2019 Gestational Age in Weeks: 38 Gestational Age in Days: 2 Admission Nurse Assessment Rev: Yes History of Labs B pos Antibody neg RPR NR HBsAg NR HIV NR GC neg GBS neg Allergies and Home Medications Allergies Coded Allergies: amoxicillin (Verified Allergy, Unknown, 05/22/15) penicillin (Verified Allergy, Unknown, 05/22/15) Home Medications Cephalexin 500 Mg Capsule, 500 MG PO QID Prescribed by: BAKARI HERNANDEZ on 02/12/19 193 Patient Home Medication List Home Medication List Reviewed: Yes OB - History Hx of Present Care: Yes Ultrasounds: Normal mid trimester US Obstetrical Complications: None Medical Complications: None Delivery History Hx Blood Disorders: No Patient Past Medical History Tobacco Use OB - Admission Exam Physical Exam HEENT: NCAT Heart: Rhythm Normal Lungs: Clear Abdomen: Gravid Extremities: Normal Reflexes: Normal Cervical Dilatation: 4cm Effacement: 75% Station: -1 Membranes: Intact Heart Rate: 140's Accelerations: Accelerations Present Decelerations: No Decelerations Short Term Variability: Present Pole Shaver Helper Variability: Average (6-25) Contractions on Admission: 6-10 Minutes Apart Labs Laboratory Tests Test 03/25/19 09:40 Range/Units White Blood Count 8.5 4.3-11.0 10^3/uL Red Blood Count 3.61 L 4.35-5.85 10^6/uL Hemoglobin 10.2 L 11.5-16.0 G/DL Hematocrit 31 L 35-52 % Mean Corpuscular Volume 87 80-99 FL Mean Corpuscular Hemoglobin 28 25-34 PG Mean Corpuscular Hemoglobin Concent 33 32-36 G/DL Red Cell Distribution Width 13.5 10.0-14.5 % Platelet Count 285 130-400 10^3/uL Mean Platelet Volume 10.0 7.4-10.4 FL Neutrophils (%) (Auto) 58 42-75 % Lymphocytes (%) (Auto) 38 12-44 % Monocytes (%) (Auto) 3 0-12 % Eosinophils (%) (Auto) 1 0-10 % Basophils (%) (Auto) 0 0-10 % Neutrophils # (Auto) 4.9 1.8-7.8 X 10^3 Lymphocytes # (Auto) 3.2 1.0-4.0 X 10^3 Monocytes # (Auto) 0.3 0.0-1.0 X 10^3 Eosinophils # (Auto) 0.1 0.0-0.3 10^3/uL Basophils # (Auto) 0.0 0.0-0.1 10^3/uL Urine Color YELLOW Urine Clarity CLEAR Urine pH 6.5 5-9 Urine Specific [place] 1.005 L 1.016-1.022 Urine Protein NEGATIVE NEGATIVE Urine Glucose (UA) NEGATIVE NEGATIVE Urine Ketones NEGATIVE NEGATIVE Urine Nitrite NEGATIVE NEGATIVE Urine Bilirubin NEGATIVE NEGATIVE Urine Urobilinogen NORMAL NORMAL MG/DL Urine Leukocyte Esterase 3+ H NEGATIVE Urine RBC (Auto) NEGATIVE NEGATIVE Urine RBC 0-2 /HPF Urine WBC >100 H /HPF Urine Squamous Epithelial Cells 10-25 H /HPF Urine Crystals NONE /LPF Urine Bacteria FEW H /HPF Urine Casts NONE /LPF Urine Mucus NEGATIVE /LPF Urine Trichomonas FEW H /HPF Urine Culture Indicated CULTURE PENDING OB - Assessment/Plan/Diagnosis Assessment Assessment: active labor Admission Dx 18 yo @ 38.2 Active labor GBS neg Admission Status: Inpatient Order (span 2 midnights) Reason for Inpatient Admission: Active labor at term Plan Plan: Expectant Management DM ROGERS DO Mar 25, 2019 12:29
[2019-03-25] MEDS ORDERED: OXYTOCIN/NORMAL SALINE 500 ML IV SCH (13:04)
[2019-03-25] MEDS ORDERED: LACTATED RINGERS 1,000 ML IV SCH (13:04)
[2019-03-25] MEDS ORDERED: EPIDURAL (SUFENTA 0.6MCG/ML BUPIVA 0.125%) 100 ML BAG EPI SCH (13:15)
[2019-03-25] MEDS ORDERED: NALOXONE 0.4 MG/ML 1 ML (NARCAN) VIAL IV PRN ×2 (13:15)
[2019-03-25] MEDS ORDERED: ONDANSETRON 4 MG/2 ML (SDV) Z0FRAN IV PRN (13:15)
[2019-03-25] MEDS ORDERED: METOCLOPRAMIDE INJ 10 MG/2 ML (REGLAN) IV PRN (13:15)
[2019-03-25] MEDS ORDERED: diphenhydrAMINE 50 MG/ML INJ (BENADRYL) IV PRN (13:15)
[2019-03-25] MEDS ORDERED: CATHETER FLUSH 10 ML SYR IV SCH ×2 (14:00→22:00)
[2019-03-25] MEDS ORDERED: LIDOCAINE/EPI 2% 1:200,00 (XYLOCAINE) 10 ML VIAL ONE (18:22)
[2019-03-25] MEDS: OXYTOCIN/NORMAL SALINE 500 ML IV SCH ×2 (18:48→19:19)
[2019-03-25] MEDS ORDERED: TETANUS,DIPTH,PERTUSS P/F (BOOSTRIX) 0.5 ML VIAL IM ONE (19:00)
[2019-03-25] MEDS ORDERED: MEASLES,MUMPS,RUBELLA 1 EA INJ SQ ONE (19:00)
[2019-03-25] MEDS ORDERED: WITCH HAZEL(TUCKS) 40 EA JAR TOP PRN (19:00)
[2019-03-25] MEDS ORDERED: BENZOCAINE/MENTHOL (DERMOPLAST) 56 ML CAN TP PRN (19:00)
[2019-03-25] MEDS ORDERED: IBUPROFEN 600 MG (MOTRIN) TAB PO ONE (19:19)
[2019-03-25] MEDS: IBUPROFEN 600 MG (MOTRIN) TAB PO SCH (19:27)
--- NOTE | 2019-03-25 20:34 | OB Labor & Delivery Record ---
L&D History Date of Service Date of Service: Mar 25, 2019 History Expected Date of Delivery: Apr 06, 2019 Gestational Age in Weeks: 38 Hx : 2 Hx Para: 1 Complications Events: Routine care Operative Indications (Cesarea: N/A-Vaginal Delivery Intrapartal Events: None L&D Stage1 Stage One Onset of Labor - Date: Mar 25, 2019 Monitors and Tracing Monitor Mode: Internal Heart Rate: 125 Monitor Accelerations: None Station: -1 Manufacturing Quality Inspector Variability: Average (6-10) Short Term Variability: Present Presentation: Vertex Vital Signs VS - Last 72 Hours, by Label 03/25/19 03/25/19 03/25/19 03/25/19 12:25 12:30 12:35 12:39 Pulse 71 72 79 70 Resp 18 18 18 18 B/P (MAP) 137/64 (88) 116/74 (88) 118/54 (75) 105/62 (76) Pulse Ox 92 100 100 100 O2 Delivery Room Air Room Air Room Air Room Air 03/25/19 03/25/19 03/25/19 03/25/19 12:45 12:48 12:52 12:55 Pulse 58 58 62 58 Resp 18 18 18 18 B/P (MAP) 100/61 (74) 105/71 (82) 107/60 (76) 106/57 (73) Pulse Ox 100 100 99 O2 Delivery Room Air Room Air Room Air Room Air 03/25/19 03/25/19 03/25/19 03/25/19 12:58 13:00 13:03 13:06 Temp 97.1 Pulse 63 61 60 63 Resp 18 18 18 18 B/P (MAP) 108/58 (75) 106/56 (73) 104/60 (75) 111/70 (84) Pulse Ox 100 100 100 100 O2 Delivery Room Air Room Air Room Air Room Air 03/25/19 03/25/19 03/25/19 03/25/19 13:09 13:16 13:19 13:21 Pulse 57 73 65 65 Resp 18 18 18 18 B/P (MAP) 112/71 (85) 107/75 (86) 109/62 (78) 106/62 (77) Pulse Ox 100 93 99 O2 Delivery Room Air Room Air Room Air Room Air 03/25/19 03/25/19 03/25/1903/25/19 13:24 13:42 13:57 14:12 Pulse 67 66 62 75 Resp 18 18 18 18 B/P (MAP) 102/61 (75) 106/58 (74) 103/62 (76) 109/66 (80) Pulse Ox 98 99 99 98 O2 Delivery Room Air Room Air Room Air Room Air 03/25/19 03/25/19 03/25/19 03/25/19 14:27 14:42 15:00 15:13 Temp 96.4 Pulse 60 63 56 56 Resp 18 18 18 18 B/P (MAP) 106/64 (78) 103/63 (76) 105/56 (72) 98/60 (73) Pulse Ox 98 97 O2 Delivery Room Air Room Air Room Air Room Air 03/25/19 03/25/19 03/25/19 03/25/19 15:28 15:43 15:58 16:13 Pulse 59 60 61 57 Resp 18 18 18 18 B/P (MAP) 107/57 (74) 98/58 (71) 103/57 (72) 104/60 (75) O2 Delivery Room Air Room Air Room Air Room Air 03/25/19 03/25/19 03/25/19 03/25/19 16:28 16:42 16:58 17:12 Temp 97.2 Pulse 68 61 73 64 Resp 18 18 18 18 B/P (MAP) 97/57 (70) 102/56 (71) 103/65 (78) 110/64 (79) O2 Delivery Room Air Room Air Room Air Room Air 03/25/19 03/25/19 03/25/19 03/25/19 17:28 17:50 17:55 18:00 Pulse 94 73 64 68 Resp 18 18 18 18 B/P (MAP) 112/69 (83) 113/74 (87) 105/66 (79) 119/56 (77) O2 Delivery Room Air Room Air Room Air Room Air 03/25/19 03/25/19 03/25/19 03/25/19 18:15 18:20 18:25 19:01 Temp 96.8 Pulse 57 73 64 72 Resp 18 18 18 18 B/P (MAP) 88/53 (65) 81/51 (61) 81/49 (60) 97/68 (78) O2 Delivery Room Air Room Air Room Air Room Air 03/25/19 19:15 Pulse 71 Resp 18 B/P (MAP) 99/64 (76) O2 Delivery Room Air Rupture of Membranes Spontaneous Ruture of Membrane: No Amniotic Membrane Rupture Time: 1242 Amniotic Membrane Fluid Desc.: Clear Amniotic Fluid Membrane Tests: Nitrazine Positive Vaginal Bleeding Description: Normal Show Induction/Anesthesia Epidural Cath Placement - Time: 1228 Progress/Notes Pitocin augmentation used to max dose of 10 mu L&D Stage2 Stage Two Stage II Date: Mar 25, 2019 Monitors and Tracing Monitor Mode: Internal Heart Rate: 125 Monitor Accelerations: Uniform Monitor Decelerations: Variable Manufacturing Quality Inspector Variability: Average (6-10) Short Term Variability: Present Position: Right Occiput Anterior Presentation: Vertex Cord Descript/Complications Cord Vessel Description: 3 Vessels Delivery Type Infant Delivery Method: Spontaneous Vaginal Anterior Shoulder: Right Episiotomy/Perineal Laceration Laceraction(s)/Extensions: Yes Episiotomy Description: Midline Degree (describe repair) midline episiotomy repaired using 3-0 and 2-0 vicryl in usual fashion Condition of Infant Delivery 1 minute Comment: 8 5 minute Comment: 9 Notes Live male infant weight 7lbs 4 oz Condition of Condition of Infant: Living Exam: No Observed Abnormalities Resuscitation Resuscitation: N/A - Spontaneous Resp L&D Stage3 Stage Three Stage III Date: Mar 25, 2019 Pictocin Pitocin Administration mu/min: 10 Pitocin ml/hr: 10 Pitocin Administration Comment: Pitocin increased per protocol Placenta Delivery Placenta Delivery: Spontaneous Delivery Summary Summary Estimated blood loss (mL): 300 Attending at delivery: Dm Rogers DO Condition of Delivery Examined: Cervix Examined, Uterus Explored Post Hemorrhage: No Condition of Mother stable Condition of (s) stable DM ROGERS DO Mar 25, 2019 20:33
--- NOTE | 2019-03-25 22:25 | NUR ---
Pt requesting to move to room at time. Pericare performed per this RN. New vpad and underwear in place. Gown changed. Pt assisted into wheelchair. belongings gathered. Pt transferred to room via wheelchair with this RN, OB RN, s.o., and infant at side. Oriented to new room. POC discussed, pt verbalized understanding. No questions or concerns voiced at time.
[2019-03-26 01:55] VITALS: BP 116/76
[2019-03-26] MEDS: IBUPROFEN 600 MG (MOTRIN) TAB PO SCH ×3 (01:58→20:03)
[2019-03-26] MEDS: HYDROcodone/APAP 5 MG/325 MG (LORTAB) TAB PO PRN ×2 (01:58→13:50)
[2019-03-26 05:17] LABS: BASOPHILS % (AUTO) 0 % (0-10); EOSINOPHILS # (AUTO) 0.1 10^3/uL (0.0-0.3); EOSINOPHILS % (AUTO) 1 % (0-10); HEMATOCRIT 28 % (35-52); HEMOGLOBIN 9.2 G/DL (11.5-16.0); LYMPHOCYTES # (AUTO) 2.6 X 10^3 (1.0-4.0); LYMPHOCYTES % (AUTO) 34 % (12-44); MEAN CORPUSCULAR HEMOGLOBIN 29 PG (25-34); MEAN CORPUSCULAR HGB CONC 33 G/DL (32-36); MEAN CORPUSCULAR VOLUME 88 FL (80-99); MONOCYTES # (AUTO) 0.3 X 10^3 (0.0-1.0); MONOCYTES % (AUTO) 4 % (0-12); NEUTROPHILS # (AUTO) 4.7 X 10^3 (1.8-7.8); NEUTROPHILS % (AUTO) 61 % (42-75); PLATELET COUNT 210 10^3/uL (130-400); RED CELL DISTRIBUTION WIDTH 13.2 % (10.0-14.5); WHITE BLOOD COUNT 7.6 10^3/uL (4.3-11.0)
[2019-03-26 05:50] VITALS: BP 113/65
--- NOTE | 2019-03-26 07:30 | Postpartum Progress Note ---
Note Note Day # 1 Subjective: Patient is without complaints. Ambulating, voiding. Tolerating a regular diet without nausea or vomiting. Normal lochia. Pain is well controlled with oral pain medications. Objective: Physical Exam: General - Alert and oriented, no apparent distress Abdomen - Soft, appropriately tender to palpation, non-distended, fundus firm at umbilicus Extremities - no edema, negative Marcel's bilaterally Assessment: PPD 1 NVD Acute blood loss anemia Plan: Routine care. Encourage breast feeding. Encourage ambulation. Ferrous sulfate supplementation. Plan for discharge tomorrow Vitals - Labs Vital Signs - I&O Vital Signs Date Time Temp Pulse Resp B/P (MAP) Pulse Ox O2 Delivery O2 Flow Rate FiO2 03/26/19 05:50 97.4 67 18 113/65 (81) 96 03/26/19 01:55 98.0 70 18 116/76 (89) 97 03/25/19 22:16 96.8 60 109/64 (79) 03/25/19 22:01 72 105/66 (79) 03/25/19 21:46 66 102/57 (72) 03/25/19 21:31 70 102/60 (74) 03/25/19 21:16 83 106/64 (78) 03/25/19 21:00 83 111/69 (83) 03/25/19 20:46 82 109/60 (76) 03/25/19 20:31 63 107/65 (79) 03/25/19 20:16 71 112/58 (76) 03/25/19 20:01 65 128/57 (80) 03/25/19 19:45 73 114/77 (89) 03/25/19 19:30 96.4 75 108/72 (84) Room Air 03/25/19 19:15 71 18 99/64 (76) Room Air 03/25/19 19:01 96.8 72 18 97/68 (78) Room Air 03/25/19 18:25 64 18 81/49 (60) Room Air 03/25/19 18:20 73 18 81/51 (61) Room Air 03/25/19 18:15 57 18 88/53 (65) Room Air 03/25/19 18:00 68 18 119/56 (77) Room Air 03/25/19 17:55 64 18 105/66 (79) Room Air 03/25/19 17:50 73 18 113/74 (87) Room Air 03/25/19 17:28 94 18 112/69 (83) Room Air 03/25/19 17:12 64 18 110/64 (79) Room Air 03/25/19 16:58 73 18 103/65 (78) Room Air 03/25/19 16:42 61 18 102/56 (71) Room Air 03/25/19 16:28 97.2 68 18 97/57 (70) Room Air 03/25/19 16:13 57 18 104/60 (75) Room Air 03/25/19 15:58 61 18 103/57 (72) Room Air 03/25/19 15:43 60 18 98/58 (71) Room Air 03/25/19 15:28 59 18 107/57 (74) Room Air 03/25/19 15:13 56 18 98/60 (73) Room Air 03/25/19 15:00 56 18 105/56 (72) Room Air 03/25/19 14:42 63 18 103/63 (76) 97 Room Air 03/25/19 14:27 96.4 60 18 106/64 (78) 98 Room Air 03/25/19 14:12 75 18 109/66 (80) 98 Room Air 03/25/19 13:57 62 18 103/62 (76) 99 Room Air 03/25/19 13:42 66 18 106/58 (74) 99 Room Air 03/25/19 13:24 67 18 102/61 (75) 98 Room Air 03/25/19 13:21 65 18 106/62 (77) 99 Room Air 03/25/19 13:19 65 18 109/62 (78) Room Air 03/25/19 13:16 73 18 107/75 (86) 93 Room Air 03/25/19 13:09 57 18 112/71 (85) 100 Room Air 03/25/19 13:06 63 18 111/70 (84) 100 Room Air 03/25/19 13:03 60 18 104/60 (75) 100 Room Air 03/25/19 13:00 61 18 106/56 (73) 100 Room Air 03/25/19 12:58 97.1 63 18 108/58 (75) 100 Room Air 03/25/19 12:55 58 18 106/57 (73) Room Air 03/25/19 12:52 62 18 107/60 (76) 99 Room Air 03/25/19 12:48 58 18 105/71 (82) 100 Room Air 03/25/19 12:45 58 18 100/61 (74) 100 Room Air 03/25/19 12:39 70 18 105/62 (76) 100 Room Air 03/25/19 12:35 79 18 118/54 (75) 100 Room Air 03/25/19 12:30 72 18 116/74 (88) 100 Room Air 03/25/19 12:25 71 18 137/64 (88) 92 Room Air I & O 03/26/19 07:00 Intake Total 2500 ml Balance 2500 ml Labs Laboratory Tests 03/25/19 09:40: White Blood Count 8.5, Red Blood Count 3.61L, Hemoglobin 10.2L, Hematocrit 31L, Mean Corpuscular Volume 87, Mean Corpuscular Hemoglobin 28, Mean Corpuscular Hemoglobin Concent 33, Red Cell Distribution Width 13.5, Platelet Count 285, Mean Platelet Volume 10.0, Neutrophils (%) (Auto) 58, Lymphocytes (%) (Auto) 38, Monocytes (%) (Auto) 3, Eosinophils (%) (Auto) 1, Basophils (%) (Auto) 0, Vijay trophils # (Auto) 4.9, Lymphocytes # (Auto) 3.2, Monocytes # (Auto) 0.3, Eosinophils # (Auto) 0.1, Basophils # (Auto) 0.0, Urine Color YELLOW, Urine Clarity CLEAR, Urine pH 6.5, Urine Specific [place] 1.005L, Urine Protein NEGATIVE, Urine Glucose (UA) NEGATIVE, Urine Ketones NEGATIVE, Urine Nitrite NEGATIVE, Urine Bilirubin NEGATIVE, Urine Urobilinogen NORMAL, Urine Leukocyte Esterase 3+H, Urine RBC (Auto) NEGATIVE, Urine RBC 0-2, Urine WBC >100H, Urine Squamous Epithelial Cells 10-25H, Urine Crystals NONE, Urine Bacteria FEWH, U rine Casts NONE, Urine Mucus NEGATIVE, Urine Trichomonas FEWH, Urine Culture Indicated CULTURE PENDING 03/26/19 05:10: White Blood Count 7.6, Red Blood Count 3.17L, Hemoglobin 9.2L, Hematocrit 28L, Mean Corpuscular Volume 88, Mean Corpuscular Hemoglobin 29, Mean Corpuscular Hemoglobin Concent 33, Red Cell Distribution Width 13.2, Platelet Count 210, Mean Platelet Volume 10.0, Neutrophils (%) (Auto) 61, Lymphocytes (%) (Auto) 34, Monocytes (%) (Auto) 4, Eosinophils (%) (Auto) 1, Basophils (%) (Auto) 0, Neutrophils # (Auto) 4.7, Lymphocytes # (Auto) 2.6, Monocytes # (Auto) 0.3, Eosinophils # (Auto) 0.1, Basophils # (Auto) 0.0 DM ROGERS DO Mar 26, 2019 07:30
--- NOTE | 2019-03-26 07:31 | Discharge Inst-Women's Service ---
Discharge Inst-Women's Serv Depart Medication/Instructions New, Converted or Re-Newed RX: RX on Chart Final Diagnosis PPD 2 NVD Problems Reviewed?: Yes Consults/Follow Up Additional Follow Up: Yes Orders/Referrals Dr. Rogers in 6 weeks Activity Activity: Activity as Tolerated Driving Instructions: No Driving for 1 Week NO SMOKING: NO SMOKING Nothing Inside Vagina: No Douching, No [place], No Tampons Diet Discharge Diet: No Restrictions Symptoms to Report to : Bleeding Excessive, Pain Increased, Fever Over 101 Degrees F, Vaginal Bleeding Increase, Questions/Concerns DM ROGERS DO Mar 26, 2019 07:31
[2019-03-26] MEDS ORDERED: IBUP-844 PO (07:33)
[2019-03-26] MEDS ORDERED: DOCU100C37 PO (07:33)
[2019-03-26] MEDS ORDERED: Benzocaine/Menthol TP (07:33)
[2019-03-26] MEDS ORDERED: ACHD5005 PO (07:33)
[2019-03-26 08:50] VITALS: BP 120/74
[2019-03-26] MEDS: PRENATAL VITAMIN 1 EA TAB PO SCH (08:58)
--- NOTE | 2019-03-26 10:50 | NUR ---
report received from JESUS Auguste. care assumed of pt.
--- NOTE | 2019-03-26 10:53 | Anesthesia-Regional Post-Op ---
Regional Patient Condition Mental Status: Alert, Oriented x3 Circulation: Same as Pre-Op Headache: Absent Sensation: Full Recovery Motor Block: Absent Post Op Complications Complications None Follow Up Care/Instructions Patient Instructions None needed. Anesthesia/Patient Condition Patient is doing well, no complaints, stable vital signs, no apparent adverse anesthesia problems. YUKO KING DO Mar 26, 2019 10:53
--- NOTE | 2019-03-26 13:16 | NUR ---
ambulating downstairs to gift shop. s/o and friend @ side.
[2019-03-26 13:54] VITALS: BP 108/66
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
--- NOTE | 2019-03-26 15:40 | NUR ---
report given to JESUS Green.
--- NOTE | 2019-03-26 17:25 | NUR ---
PT IN BED, HOLDING , VISITORS AT THE BEDSIDE. NO NEEDS VOICED.
[2019-03-26 20:00] VITALS: BP 92/57
[2019-03-26] MEDS: DOCUSATE SODIUM 100 MG (COLACE) CAP PO SCH ×2 (20:03→23:41)
[2019-03-27] MEDS: HYDROcodone/APAP 5 MG/325 MG (LORTAB) TAB PO PRN (00:07)
[2019-03-27 02:25] VITALS: BP 101/68
[2019-03-27] MEDS: IBUPROFEN 600 MG (MOTRIN) TAB PO SCH ×2 (02:25→08:50)
--- NOTE | 2019-03-27 07:45 | NUR ---
here to see pt. dismissal orders received.
--- NOTE | 2019-03-27 07:46 | Postpartum Progress Note ---
Note Note Day # 2 Subjective: Patient is without complaints. Ambulating, voiding. Tolerating a regular diet without nausea or vomiting. Normal lochia. Pain is well controlled with oral pain medications. Objective: Physical Exam: General - Alert and oriented, no apparent distress Abdomen - Soft, appropriately tender to palpation, non-distended, fundus firm at umbilicus Extremities - no edema, negative Marcel's bilaterally Assessment: PPD 1 NVD Acute blood loss anemia Plan: Routine care. Encourage breast feeding. Encourage ambulation. Ferrous sulfate supplementation. Plan for discharge today Vitals - Labs Vital Signs - I&O Vital Signs Date Time Temp Pulse Resp B/P (MAP) Pulse Ox O2 Delivery O2 Flow Rate FiO2 03/27/19 02:25 97.6 68 18 101/68 (79) 98 03/26/19 20:00 97.8 60 18 92/57 (69) 98 03/26/19 13:54 97.7 74 18 108/66 (80) 98 Room Air 03/26/19 09:00 98 Room Air 03/26/19 08:50 97.5 57 18 120/74 (89) 98 Room Air Labs Microbiology 03/25/19 Urine Culture - Final, Complete NO GROWTH DM RGOERS DO Mar 27, 2019 07:46
[2019-03-27] MEDS: DOCUSATE SODIUM 100 MG (COLACE) CAP PO SCH (08:51)
[2019-03-27] MEDS: PRENATAL VITAMIN 1 EA TAB PO SCH (08:51)
[2019-03-27 08:55] VITALS: BP 103/66
--- NOTE | 2019-03-27 08:55 | NUR ---
initial shift assessment completed, see interventions for further. POC reviewed, states understanding.
--- NOTE | 2019-03-27 11:02 | NUR ---
dismissal instructions given, verbalizes understanding. reviewed follow up appointment and dismissal Rx's. signature page signed, placed on chart.
--- NOTE | 2019-03-27 12:05 | NUR ---
pt dismissed to private vehicle via w/c with JESUS Pak and s/o and @ side. infant secured in rear facing car seat. pt stable upon dismissal.
== END 2019-03-27 12:05 | disposition home or self-care (01) | DRG 806 ==
LOC: WSo 09:33 → LDRP 09:33 → WSo 09:42 → LDRP 10:27
PROVIDERS: ADMIT Obstetrics & Gynecology; ATTEND Obstetrics & Gynecology
PROC: 10E0XZZ Delivery of Products of Conception, External Approach (ICD-10-PCS; principal; 2019-03-25)
PROC: 0W8NXZZ Division of Female Perineum, External Approach (ICD-10-PCS; 2019-03-25)
DX: O90.81 Anemia of the puerperium (principal); D62 Acute posthemorrhagic anemia; Z37.0 Single live birth; Z3A.38 38 weeks gestation of pregnancy
CPT/HCPCS: 36415; 81000; 85025; 86850; 86900; 86901; 87088; 99212

== ENCOUNTER 2019-11-07 15:18 | Emergency (ER) | payer BC, MEDICAID ==
[~2019-11-07] VITALS: Ht 165 cm; Wt 79.5 kg
[~2019-11-07 15:18] MED LIST changes: +ACHD5005 PO; +Benzocaine/Menthol TP; +DOCU100C37 PO; +IBUP-844 PO
[2019-11-07 15:54] LABS: BASOPHILS % (AUTO) 0 % (0-10); EOSINOPHILS # (AUTO) 0.2 10^3/uL (0.0-0.3); EOSINOPHILS % (AUTO) 2 % (0-10); HEMATOCRIT 39 % (35-52); HEMOGLOBIN 13.2 G/DL (11.5-16.0); LYMPHOCYTES # (AUTO) 2.2 X 10^3 (1.0-4.0); LYMPHOCYTES % (AUTO) 26 % (12-44); MEAN CORPUSCULAR HEMOGLOBIN 29 PG (25-34); MEAN CORPUSCULAR HGB CONC 34 G/DL (32-36); MEAN CORPUSCULAR VOLUME 85 FL (80-99); MEAN PLATELET VOLUME 10.2 FL (7.4-10.4); MONOCYTES # (AUTO) 0.3 X 10^3 (0.0-1.0); MONOCYTES % (AUTO) 4 % (0-12); NEUTROPHILS # (AUTO) 5.7 X 10^3 (1.8-7.8); NEUTROPHILS % (AUTO) 67 % (42-75); PLATELET COUNT 283 10^3/uL (130-400); RED CELL DISTRIBUTION WIDTH 12.1 % (10.0-14.5); WHITE BLOOD COUNT 8.4 10^3/uL (4.3-11.0)
--- NOTE | 2019-11-07 16:07 | ED GI ---
General Chief Complaint: Abdominal/GI Problems Stated Complaint: N/V Nursing Triage Note: PT PRESENTS TO ED VIA EMS ACCOMPANIED BY HER 2 MINOR CHILDREN. PT COMPLAINS OF N/V/D X 1 WEEK AND SOME COUGHING AND LOW GRADE TEMP. Sepsis Screen: Possible Sepsis Risk Source of Information: Patient, EMS Exam Limitations: No Limitations History of Present Illness Date Seen by Provider: Nov 07, 2019 Time Seen by Provider: 15:25 Initial Comments Here with report of nausea, vomiting and diarrhea as well as a low-grade temperature at home. She has had some cough. No recent travel history or significant sick contacts. She does have 2 children with her that were also brought in by EMS with similar nausea, vomiting and diarrhea. Mother is very scared that she's getting her children something more significant. She does have history of anxiety. She tried calling her doctor and the children's doctor and states she was told to come to the emergency department. No blood in her vomit or stool. She is able take fluids. She was quite anxious initially but calmed with evaluation and reassurance. She has not had her flu vaccination although the children have. Timing/Duration: 1 Week, Changing Over Time Severity/Quality: Mild, Cramping Location: Other (lower abdomen) Radiation: No Radiation Activities at Onset: None Modifying Factors: Improves With Resting Associated Symptoms: No Back Pain, No Chest Pain; Fever/Chills, Headache, Nausea/Vomiting; No Shortness of Air, No Weakness Allergies and Home Medications Allergies Coded Allergies: amoxicillin (Verified Allergy, Unknown, 05/22/15) penicillin (Verified Allergy, Unknown, 05/22/15) Home Medications Cephalexin 500 Mg Capsule, 500 MG PO QID Prescribed by: BAKARI HERNANDEZ on 02/12/191931 Docusate Sodium 100 Mg Capsule, 100 MG PO BID PRN for CONSTIPATION-1ST LINE Prescribed by: DM ROGERS on 03/26/19732 Hydrocodone Bit/Acetaminophen 1 Tab Tab, 1 TAB PO Q4H PRN for PAIN-MODERATE Prescribed by: DM ROGERS on 03/26/19732 Ibuprofen 600 Mg Tablet, 600 MG PO Q6HR Prescribed by: DM ROGERS on 03/26/19732 [Benzocaine/Menthol] 56 ML AEROSOL, 56 ML TP UD PRN for PAIN- SEE INSTRUCTIONS EXTERNAL USE ONLY Prescribed by: DM ROGERS on 03/26/19732 Patient Home Medication List Home Medication List Reviewed: Yes Review of Systems Review of Systems Constitutional: see HPI EENTM: Nose Congestion Respiratory: Cough; Denies Shortness of Air Cardiovascular: No Symptoms Reported Gastrointestinal: See HPI Genitourinary: No Symptoms Reported Musculoskeletal: no symptoms reported Skin: no symptoms reported Psychiatric/Neurological: See HPI, Headache; Denies Weakness Past Zbgovio-Qkcncg-Jhynkk Hx Past Med/Social Hx: Reviewed Nursing Past Med/Soc Hx Patient Social History Alcohol Use: Denies Use Recreational Drug Use: No Smoking Status: Current Everyday Smoker Type Used: Cigarettes Recent Foreign Travel: No Contact w/Someone Who Travel: No Recent Infectious Disease Expo: No Recent Hopitalizations: No Physical Abuse: No Sexual Abuse: No Mistreated: No Fear: No Immunizations Up To Date Tetanus Booster (TDap): Unknown PED Vaccines UTD: Yes Seasonal Allergies Seasonal Allergies: No Past Medical History Surgeries: No Respiratory: Yes Asthma Cardiac: No Neurological: No Reproductive Disorders: No Female Reproductive Disorders: Menstrual Problems Genitourinary: Yes Kidney Stones, UTI-Chronic Gastrointestinal: No Musculoskeletal: No Endocrine: No HEENT: No Cancer: No Psychosocial: Yes Anxiety, Depression Integumentary: No Blood Disorders: No Adverse Reaction/Blood Tranf: No (n/a) Family Medical History Reviewed Nursing Family Hx Alcoholism 19 FATHER Hypertension 19 FATHER 19 MOTHER No Pertinent Family Hx Physical Exam Vital Signs Vital Signs - First Documented 11/07/19 15:28 Temp 37.7 Pulse 100 Resp 20 B/P (MAP) 120/83 (95) Pulse Ox 98 Capillary Refill : Less Than 3 Seconds Height/Weight/BMI Height: 5'5.00" Weight: 174lbs. 0.5oz. 78.898690ym; 29.00 BMI Method:Estimated General Appearance: WD/WN, no apparent distress HEENT: PERRL/EOMI, pharynx normal Neck: full range of motion, supple Respiratory: lungs clear, normal breath sounds Cardiovascular: no murmur, tachycardia Gastrointestinal: non tender, soft Extremities: non-tender, normal inspection Back: normal inspection, no CVA tenderness, no vertebral tenderness Neurologic/Psychiatric: alert, oriented x 3 Skin: normal color, warm/dry Progress/Results/Core Measures Results/Orders Lab Results Laboratory Tests Test 11/07/19 15:47 11/07/19 15:54 Range/Units White Blood Count 8.4 4.3-11.0 10^3/uL Red Blood Count 4.60 4.35-5.85 10^6/uL Hemoglobin 13.2 11.5-16.0 G/DL Hematocrit 39 35-52 % Mean Corpuscular Volume 85 80-99 FL Mean Corpuscular Hemoglobin 29 25-34 PG Mean Corpuscular Hemoglobin Concent 34 32-36 G/DL Red Cell Distribution Width 12.1 10.0-14.5 % Platelet Count 283 130-400 10^3/uL Mean Platelet Volume 10.2 7.4-10.4 FL Neutrophils (%) (Auto) 67 42-75 % Lymphocytes (%) (Auto) 26 12-44 % Monocytes (%) (Auto) 4 0-12 % Eosinophils (%) (Auto) 2 0-10 % Basophils (%) (Auto) 0 0-10 % Neutrophils # (Auto) 5.7 1.8-7.8 X 10^3 Lymphocytes # (Auto) 2.2 1.0-4.0 X 10^3 Monocytes # (Auto) 0.3 0.0-1.0 X 10^3 Eosinophils # (Auto) 0.2 0.0-0.3 10^3/uL Basophils # (Auto) 0.0 0.0-0.1 10^3/uL Sodium Level 139 135-145 MMOL/L Potassium Level 3.8 3.6-5.0 MMOL/L Chloride Level 109 H 98-107 MMOL/L Carbon Dioxide Level 20 L 21-32 MMOL/L Anion Gap 10 5-14 MMOL/L Blood Urea Nitrogen 13 7-18 MG/DL Creatinine 0.86 0.60-1.30 MG/DL Estimat Glomerular Filtration Rate > 60 BUN/Creatinine Ratio 15 Glucose Level 97 70-105 MG/DL Calcium Level 8.8 8.5-10.1 MG/DL Corrected Calcium 8.8 8.5-10.1 MG/DL Total Bilirubin 0.4 0.1-1.0 MG/DL Aspartate Amino Transf (AST/SGOT) 13 5-34 U/L Alanine Aminotransferase (ALT/SGPT) 7 0-55 U/L Alkaline Phosphatase 56 40-136 U/L Total Protein 7.1 6.4-8.2 GM/DL Albumin 4.0 3.2-4.5 GM/DL Urine Color YELLOW Urine Clarity CLEAR Urine pH 7.0 5-9 Urine Specific [place] 1.020 1.016-1.022 Urine Protein NEGATIVE NEGATIVE Urine Glucose (UA) NEGATIVE NEGATIVE Urine Ketones NEGATIVE NEGATIVE Urine Nitrite NEGATIVE NEGATIVE Urine Bilirubin NEGATIVE NEGATIVE Urine Urobilinogen 0.2 < = 1.0 MG/DL Urine Leukocyte Esterase 2+ H NEGATIVE Urine RBC (Auto) NEGATIVE NEGATIVE Urine RBC NONE /HPF Urine WBC 5-10 H /HPF Urine Crystals PRESENT H /LPF Urine Amorphous Sediment MOD SHANIQUE URATES H /LPF Urine Bacteria TRACE /HPF Urine Casts NONE /LPF Urine Mucus NEGATIVE /LPF Urine Culture Indicated YES My Orders Orders - TANIA JOSUE MD Ketorolac Injection (Toradol Injection) (11/07/19 16:12) Influenza A And B Antigens (11/07/19 16:40) Ceftriaxone For Iv Use (Rocephin For I (11/07/19 17:15) Vital Signs/I&O 11/07/19 15:28 Temp 37.7 Pulse 100 Resp 20 B/P (MAP) 120/83 (95) Pulse Ox 98 Blood Pressure Mean: 95 Progress Progress Note : Progress Note Seen and evaluated. IV, labs and UA ordered. Influenza screen ordered. We will continue and complete 1 L normal saline IV bolus that was initiated by EMS. Monitor patient. We will go ahead and give Toradol 30 mg IV for the headache. Departure Impression Primary Impression: Diarrhea Qualified Codes: R19.7 - Diarrhea, unspecified Additional Impression: Urinary tract infection Qualified Codes: N30.00 - Acute cystitis without hematuria Disposition: 01 HOME, SELF-CARE Condition: Stable Departure-Patient Inst. Decision time for Depature: 17:10 Referrals: DM ROGERS DO (PCP/Family) Primary Care Physician Patient Instructions: Urinary Tract Infection, Adult (DC), Diarrhea in Adolescents and Adults Add. Discharge Instructions: All discharge instructions reviewed with patient and/or family. Voiced understanding. Take medications as directed. Follow-up with your DrJhonny in a few days for recheck. Return for worse pain, fever, vomiting, weakness, breathing problems or other concerns as needed. Clear liquid diet or light diet for next 24 hours and then advance as tolerated. Ensure that you drink plenty of fluids. Scripts Cephalexin (Cephalexin) 500 Mg Tablet 500 MG PO BID, #10 TAB 0 Refills Prov: TANIA JOSUE MD 11/07/19 TANIA JOSUE MD Nov 07, 2019 16:07
[2019-11-07 16:10] LABS: BILIRUBIN,URINE NEGATIVE (NEGATIVE); CLARITY,URINE CLEAR; COLOR,URINE YELLOW; GLUCOSE, URINE (UA) NEGATIVE (NEGATIVE); KETONES,URINE NEGATIVE (NEGATIVE); LEUKOCYTE ESTERASE ,URINE 2+ (NEGATIVE); NITRITE,URINE NEGATIVE (NEGATIVE); PROTEIN,URINE NEGATIVE (NEGATIVE)
[2019-11-07] MEDS ORDERED: KETOROLAC 30 MG/ML VIAL IVP STA (16:12)
[2019-11-07 16:17] LABS: ALANINE AMINOTRANSFERASE 7 U/L (0-55); ALKALINE PHOSPHATASE 56 U/L (40-136); BILIRUBIN,TOTAL 0.4 MG/DL (0.1-1.0); BUN/CREATININE RATIO 15; CALCIUM 8.8 MG/DL (8.5-10.1); CARBON DIOXIDE 20 MMOL/L (21-32); CHLORIDE 109 MMOL/L (98-107); CREATININE SERUM 0.86 MG/DL (0.60-1.30); GFR ESTIMATED > 60; GLUCOSE 97 MG/DL (70-105); POTASSIUM 3.8 MMOL/L (3.6-5.0); SODIUM 139 MMOL/L (135-145); TOTAL PROTEIN 7.1 GM/DL (6.4-8.2)
[2019-11-07 16:41] LABS: AMORPHOUS SEDIMENT,UR MOD AMOR URATES /LPF; BACTERIA,URINE TRACE /HPF
[2019-11-07] MEDS ORDERED: cefTRIAXone FOR IV USE 1,000 MG in WATER (STERILE) FOR INJECTION 10 ML IV ONE (17:15)
[2019-11-07] MEDS ORDERED: CEPH500T PO (17:27)
[2019-11-07 17:41] VITALS: BP 123/84
== END 2019-11-07 17:41 | disposition home or self-care (01) ==
LOC: EDUNIT# 15:18 → ER 15:19
DX: R19.7 Diarrhea, unspecified (principal); N39.0 Urinary tract infection, site not specified; F17.210 Nicotine dependence, cigarettes, uncomplicated; Z88.1 Allergy status to other antibiotic agents; Z88.0 Allergy status to penicillin; Z82.49 Family history of ischemic heart disease and other diseases of the circulatory system
CPT/HCPCS: 36415; 80053; 81000; 85025; 87088; 87804; 96374; 96375

== ENCOUNTER 2020-03-01 23:28 | Emergency (ER) | payer BC, MEDICAID ==
[~2020-03-01] VITALS: Ht 165 cm; Wt 80.0 kg
[~2020-03-01 23:28] MED LIST changes: +CEPH500T PO
[2020-03-01 23:40] VITALS: BP 126/86
--- NOTE | 2020-03-01 23:55 | NUR ---
COVID-19 SWAB COLLECTED AND KDHE PAPERWORK SENT TO LAB, PAPERWORK ALSO SENT TO GUEST ROOM ATTENDANT.
[2020-03-02] MEDS ORDERED: predniSONE 20 MG TAB ONE (00:01)
[2020-03-02] MEDS ORDERED: HYDROmorphone 2 MG/ML VIAL (DILAUDID) ONE (00:11)
[2020-03-02] MEDS ORDERED: predniSONE 20 MG TAB PO ONE (00:15)
--- NOTE | 2020-03-02 00:16 | ED Respiratory ---
General Chief Complaint: Respiratory Problems Stated Complaint: SOA,NAUSEA,DIARRHEA Nursing Triage Note: c/o cough, soa, nausea x3 days, sore throat Source: patient Exam Limitations: no limitations History of Present Illness Date Seen by Provider: Mar 01, 2020 Time Seen by Provider: 23:45 Initial Comments Here with report of cough and shortness of breath for the last couple of days. Has some upper respiratory stuff including sore throat and has had nausea but no vomiting. 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 Temperature was 99.1 on arrival. Denies specific COVID-19 contact that is uns ure. Does have history of asthma and that has similar presentation. She has used her inhaler with some success. Timing/Duration: constant, other (3 days) Severity: mild, moderate Prior Episodes/Possible Cause: occasional episodes Associated Symptoms: cough, nasal congestion, shortness of breath, sore throat, wheezing Allergies and Home Medications Allergies Coded Allergies: amoxicillin (Verified Allergy, Unknown, 05/22/15) penicillin (Verified Allergy, Unknown, 05/22/15) Patient Home Medication List Home Medication List Reviewed: Yes Review of Systems Review of Systems Constitutional: see HPI; No chills, No fever EENTM: nose congestion, throat pain Respiratory: cough, short of breath, wheezing Cardiovascular: no symptoms reported Gastrointestinal: nausea; No vomiting Genitourinary: no symptoms reported Musculoskeletal: no symptoms reported Psychiatric/Neurological: No Symptoms Reported Past Sfldvyo-Gbupet-Iyuiut Hx Past Med/Social Hx: Reviewed Nursing Past Med/Soc Hx Patient Social History Alcohol Use: Denies Use Recreational Drug Use: No Smoking Status: Current Everyday Smoker Type Used: Cigarettes Recent Foreign Travel: No Contact w/Someone Who Travel: No Recent Infectious Disease Expo: No Recent Hopitalizations: No Physical Abuse: No Sexual Abuse: No Mistreated: No Fear: No Immunizations Up To Date Tetanus Booster (TDap): Unknown PED Vaccines UTD: Yes Seasonal Allergies Seasonal Allergies: No Past Medical History Surgeries: No Respiratory: Yes Asthma Cardiac: No Neurological: No : No Reproductive Disorders: No Female Reproductive Disorders: Menstrual Problems Genitourinary: Yes Kidney Stones, UTI-Chronic Gastrointestinal: No Musculoskeletal: No Endocrine: No HEENT: No Cancer: No Psychosocial: Yes Anxiety, Depression Integumentary: No Blood Disorders: No Adverse Reaction/Blood Tranf: No (n/a) Family Medical History Reviewed Nursing Family Hx Alcoholism 19 FATHER Hypertension 19 FATHER 19 MOTHER No Pertinent Family Hx Physical Exam Vital Signs - First Documented 03/01/20 23:40 Temp 37.2 Pulse 89 Resp 18 B/P (MAP) 126/86 (99) Pulse Ox 99 O2 Delivery Room Air Capillary Refill : Less Than 3 Seconds Height: 5'5.00" Weight: 174lbs. 0.5oz. 78.378869xz; 29.00 BMI Method:Estimated General Appearance: WD/WN, no apparent distress HEENT: PERRL/EOMI, pharynx normal Neck: full range of motion, supple Respiratory: lungs clear, normal breath sounds Cardiovascular: regular rate, rhythm, no murmur Gastrointestinal: non tender, soft Neurologic/Psychiatric: alert, oriented x 3 Skin: normal color, warm/dry Progress/Results/Core Measures Suspected Sepsis Recent Fever Within 48 Hours: No Infection Criteria Present: None New/Unexplained Altered Menta: No Sepsis Screen: No Definite Risk SIRS Temperature: Pulse: 89 Respiratory Rate: 18 Blood Pressure 126 /86 Mean: 99 Results/Orders My Orders Orders - TANIA JOSUE MD Prednisone Tablet (Deltasone Tablet) (03/02/20 00:15) Prednisone Tablet (Deltasone Tablet) (03/02/20 00:01) Vital Signs/I&O 03/01/20 23:40 Temp 37.2 Pulse 89 Resp 18 B/P (MAP) 126/86 (99) Pulse Ox 99 O2 Delivery Room Air Capillary Refill : Less Than 3 Seconds Blood Pressure Mean: 99 Progress Note : Progress Note Seen and evaluated. COVID-19 screening swab initiated. Prednisone 40 mg by mouth. Discharged home with return precautions. Patient verbalize understanding instructions and agreement with plan. Departure Impression Primary Impression: Asthma Qualified Codes: J45.21 - Mild intermittent asthma with (acute) exacerbation Additional Impression: COVID-19 evaluation Disposition: HOME, SELF-CARE Condition: Stable Departure-Patient Inst. Decision time for Depature: 00:14 Referrals: [facility] (PCP/Family) Primary Care Physician Patient Instructions: Asthma, Adult (DC), Coronavirus Disease 2019 (COVID-19) (DC) Add. Discharge Instructions: All discharge instructions reviewed with patient and/or family. Voiced understanding. Drink plenty of fluids and get plenty of rest. You will need to remain on quarantine until test results are noted. If they are negative, you will need to be isolated for 3 days after symptoms resolve. If they are positive, the health department will call you and direct isolation timeframe. You may take ibuprofen 600 mg every 8 hours as needed for fever or pain. You may take Tylenol/acetaminophen 1000 mg every 8 hours as needed for fever.. Continue albuterol inhaler as prescribed. Take other medications as prescribed. Continue to wear mask especially around her child to prevent infection. Continue good handwashing especially prior to touching the child. Return for worse pain, fever, vomiting, weakness, breathing problems or other concerns as needed. TANIA JOSUE MD Mar 02, 2020 00:16
[2020-03-02] MEDS ORDERED: RT-ALBUINH INH (12:25)
== END 2020-03-02 00:21 | disposition home or self-care (01) ==
LOC: EDUNIT# 23:28 → ER 23:30
DX: J45.909 Unspecified asthma, uncomplicated (principal); F17.210 Nicotine dependence, cigarettes, uncomplicated; Z20.828 Contact with and (suspected) exposure to other viral communicable diseases; Z88.0 Allergy status to penicillin; Z82.49 Family history of ischemic heart disease and other diseases of the circulatory system
CPT/HCPCS: 99283; U0002; 87635

== ENCOUNTER 2020-06-05 23:59 | Emergency (ER) | payer BC, MEDICAID ==
[~2020-06-05] VITALS: Ht 165.1 cm; Wt 77.3 kg
[~2020-06-05 23:59] MED LIST changes: +RT-ALBUINH INH
[2020-06-06] MEDS ORDERED: predniSONE 20 MG TAB PO ONE (00:15)
[2020-06-06] MEDS ORDERED: diphenhydrAMINE 25 MG TAB (BENADRYL) PO ONE (00:15)
[2020-06-06] MEDS ORDERED: MOME45CR3 TP (00:18)
[2020-06-06] MEDS ORDERED: PRD20T PO (00:18)
--- NOTE | 2020-06-06 00:18 | ED Integumentary General ---
General Chief Complaint: Bite-Animal/Human/Insect Stated Complaint: BITES ALL OVER Nursing Triage Note: pt c/o bites to arms et leg this morning after staying at hotel. Source: patient History of Present Illness Date Seen by Provider: Jun 06, 2020 Time Seen by Provider: 00:07 Initial Comments PT ARRIVES VIA POV STATES SHE HAS BEEN STAYING AT THE [facility] S[facility]CE LAST NIGHT-STATES SHE MOVED TO A DIFFERENT ROOM TODAY STATES SHE WOKE UP THIS MORNING WITH "BITES" ON ARMS AND LEGS. STATES SHE PUT CORTISONE CREAM ON THEM WITHOUT IMPROVEMENT IN ITCHING. NO HISTORY OF SIMILAR PCP: [facility] Allergies and Home Medications Allergies Coded Allergies: amoxicillin (Verified Allergy, Unknown, 05/22/15) penicillin (Verified Allergy, Unknown, 05/22/15) Home Medications Albuterol Sulfate 1 Puff Puff, 2 PUFF INH Q4H PRN for WHEEZING 1 PUFF = 90 MCG Prescribed by: TAMARA FRAZIER on 03/02/20 1225 Mometasone Furoate 45 Gm Cream..g., 45 GM TP TID Prescribed by: LILLY CASTERJON on 06/06/2017 Prednisone 20 Mg Tab, 40 MG PO DAILY Prescribed by: LILLY CASTERJON on 06/06/2017 Patient Home Medication List Home Medication List Reviewed: Yes Review of Systems Review of Systems Constitutional: no symptoms reported EENTM: no symptoms reported Respiratory: no symptoms reported Cardiovascular: no symptoms reported Gastrointestinal: no symptoms reported Genitourinary: no symptoms reported : No LMP: May 15, 2020 (IUD IN [address]) Musculoskeletal: no symptoms reported Skin: pruritus, rash Psychiatric/Neurological: No Symptoms Reported Endocrine: No Symptoms Reported Hematologic/Lymphatic: No Symptoms Reported Past Vjtcxag-Wuffrx-Dvodii Hx Past Med/Social Hx: Reviewed and Corrections made Patient Social History Alcohol Use: Rarely Uses Recreational Drug Use: No Smoking Status: Current Everyday Smoker Type Used: Cigarettes Recent Foreign Travel: No Contact w/Someone Who Travel: No Recent Infectious Disease Expo: No Recent Hopitalizations: No Immunizations Up To Date Tetanus Booster (TDap): Unknown PED Vaccines UTD: Yes Seasonal Allergies Seasonal Allergies: No Past Medical History Surgeries: No Respiratory: Yes Asthma Cardiac: No Neurological: No Last Menstrual Period: May 16, 2020 Reproductive Disorders: Yes Female Reproductive Disorders: Menstrual 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 Genitourinary: Yes Kidney Stones, UTI-Chronic Gastrointestinal: No Musculoskeletal: No Endocrine: No HEENT: No Cancer: No Psychosocial: Yes Anxiety, Bipolar, Depression Integumentary: No Blood Disorders: No Adverse Reaction/Blood Tranf: No (n/a) Family Medical History Alcoholism 19 FATHER Hypertension 19 FATHER 19 MOTHER No Pertinent Family Hx Physical Exam Vital Signs Vital Signs - First Documented 06/06/20 00:13 Temp 35.9 Pulse 87 Resp 16 B/P (MAP) 126/79 (95) Pulse Ox 99 O2 Delivery Room Air Capillary Refill : Less Than 3 Seconds General Appearance: WD/WN, no apparent distress, obese HEENT: other (NO SWELLING TO FACE, LIPS, TONGUE OR ORAL MUCOSA) Cardiovascular: regular rate, rhythm Respiratory: normal breath sounds Extremities: normal range of motion, non-tender, normal capillary refill Neurologic/Psychiatric: triple valve mechanic II-XII nml as tested, no motor/sensory deficits, alert, oriented x 3 Skin: normal color, warm/dry, other (MULTIPLE AREAS WITH APPEARANCE OF INSECT BITES ON BOTH UPPER ARMS, RIGHT DORSAL WRIST, BILATERAL ANTERIOR LOWER LEGS. LEFT UPPER ARM/POSTERIOR ASPECT, JUST ABOVE ELBOW WITH APPROXIMATELY 10 CM AREA OF LOCAL REACTION. RIGHT UPPER ARM/ POSTERIOR-LATERAL ASPECT, NEAR SHOULDER WITH 5 CM SURROUNDING LOCAL REACTION. OTHER AREAS ARE SMALL RAISED ERYTHEMATOUS PAPULES 2-5 MM IN DIAMTER--AND ARE FEW IN NUMBER--2-3 ON DORSAL RIGHT WRIST, 3-5 ON BILATERAL LOWER LEGS/ANTERIOR ASPECT. ) Progress/Results/Core Measures Results/Orders My Orders Orders - LILLY CASTREJON DO Prednisone Tablet (Deltasone Tablet) (06/06/20 00:15) Diphenhydramine Tablet (Benadryl Tablet) (06/06/20 00:15) Medications Given in ED Current Medications Medications Dose Ordered Sig/Albin Route Start Time Stop Time Status Last Admin Dose Admin Diphenhydramine HCl 50 mg ONCE ONCE PO 06/06/20 00:15 06/06/20 00:18 DC 06/06/20 00:30 50 MG Prednisone 40 mg ONCE ONCE PO 06/06/20 00:15 06/06/20 00:18 DC 06/06/20 00:30 40 MG Vital Signs/I&O 06/06/20 06/06/20 00:13 00:38 Temp 35.9 35.9 Pulse 87 87 Resp 16 16 B/P (MAP) 126/79 (95) 126/79 (95) Pulse Ox 99 99 O2 Delivery Room Air Blood Pressure Mean: 95 Departure Impression Primary Impression: Insect bite of multiple sites with local reaction Disposition: HOME, SELF-CARE Condition: Stable Departure-Patient Inst. Referrals: [facility] (PCP/Family) Primary Care Physician Patient Instructions: Insect Bites and Stings (DC) Add. Discharge Instructions: TAKE BENADRYL 50 MG EVERY 4 HOURS NEEDED FOR ITCHING FOLLOW UP WITH [facility] IN 2-3 DAYS IF NO BETTER All discharge instructions reviewed with patient and/or family. Voiced understanding. Scripts Mometasone Furoate (Mometasone Furoate) 45 Gm Cream..g. 45 GM TP TID, #1 TUBE Prov: LILLY CASTREJON DO 06/06/20 Prednisone (Prednisone) 20 Mg Tab 40 MG PO DAILY, #6 TAB 0 Refills Prov: LILLY CASTREJON DO 06/06/20 LILLY CASTREJON DO Jun 06, 2020 00:18
[2020-06-06 00:38] VITALS: BP 126/79
== END 2020-06-06 00:30 | disposition home or self-care (01) ==
LOC: EDUNIT# 23:59 → ER 06-06 00:02
DX: S60.861A Insect bite (nonvenomous) of right wrist, initial encounter (principal); S80.862A Insect bite (nonvenomous), left lower leg, initial encounter; S80.861A Insect bite (nonvenomous), right lower leg, initial encounter; S40.262A Insect bite (nonvenomous) of left shoulder, initial encounter; E66.9 Obesity, unspecified; J45.909 Unspecified asthma, uncomplicated; F17.210 Nicotine dependence, cigarettes, uncomplicated; Z82.49 Family history of ischemic heart disease and other diseases of the circulatory system; Z79.52 Long term (current) use of systemic steroids; Z88.1 Allergy status to other antibiotic agents; Z88.0 Allergy status to penicillin; Z20.828 Contact with and (suspected) exposure to other viral communicable diseases; W57.XXXA Bitten or stung by nonvenomous insect and other nonvenomous arthropods, initial encounter
CPT/HCPCS: 99283

== ENCOUNTER 2020-08-12 17:08 | Emergency (ER) | payer BC, MEDICAID ==
[~2020-08-12] VITALS: Ht 165.1 cm; Wt 86.8 kg
[~2020-08-12 17:08] MED LIST changes: +MOME45CR3 TP; +PRD20T PO
[2020-08-12] MEDS ORDERED: CEPH-507 PO (17:51)
[2020-08-12] MEDS ORDERED: NAPR-1071 PO (17:51)
--- NOTE | 2020-08-12 17:52 | ED EENT ---
History of Present Illness General Chief Complaint: Dental Problems/Pain Stated Complaint: DENTAL PAIN Source: patient Exam Limitations: no limitations History of Present Illness Date Seen by Provider: Aug 12, 2020 Time Seen by Provider: 17:48 Initial Comments To ER with right lower dental pain for 2 weeks Timing/Duration: abrupt Severity: moderate Location: dental Associated Symptoms: denies symptoms Allergies and Home Medications Allergies Coded Allergies: amoxicillin (Verified Allergy, Unknown, 05/22/15) penicillin (Verified Allergy, Unknown, 05/22/15) Home Medications Albuterol Sulfate 1 Puff Puff, 2 PUFF INH Q4H PRN for WHEEZING 1 PUFF = 90 MCG Prescribed by: TAMARA FRAZIER on 03/02/20 1225 Mometasone Furoate 45 Gm Cream..g., 45 GM TP TID Prescribed by: LILLY CASTREJON on 06/06/20 001 Prednisone 20 Mg Tab, 40 MG PO DAILY Prescribed by: LILLY CASTREJON on 06/06/2017 Patient Home Medication List Home Medication List Reviewed: Yes Review of Systems Review of Systems Constitutional: see HPI Eyes: No Symptoms Reported Ears: No Symptoms Reported Nose: no symptoms reported Mouth: no symptoms reported Throat: no symptoms reported Respiratory: no symptoms reported Cardiovascular: no symptoms reported Musculoskeletal: no symptoms reported Past Afikifd-Eekdxy-Mvlocq Hx Patient Social History Type Used: Cigarettes Recent Foreign Travel: No Contact w/Someone Who Travel: No Recent Hopitalizations: No Immunizations Up To Date Tetanus Booster (TDap): Unknown PED Vaccines UTD: Yes Seasonal Allergies Seasonal Allergies: No Past Medical History Surgeries: No Respiratory: Yes Asthma Cardiac: No Neurological: No Reproductive Disorders: Yes Female Reproductive Disorders: Menstrual 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 0.5oz. [id number]; 28.00 BMI Method:Estimated General Appearance: WD/WN, no apparent distress Eyes: bilateral eye normal inspection, bilateral eye PERRL, bilateral eye EOMI Ears: bilateral ear auricle normal, bilateral ear canal normal, bilateral ear TM normal Mouth/Throat: No mandibular swelling Neck: non-tender, full range of motion Respiratory: no respiratory distress, no accessory muscle use Gastrointestinal: normal bowel sounds, non tender, soft Neurologic/Psychiatric: alert, normal mood/affect, oriented x 3 Skin: normal color, warm/dry Progress/Results/Core Measures Results/Orders My Orders Orders - LUIS A ULRICH APRN Lidocaine 2% Viscous 15 Ml (Xylocaine Vi (08/12/20 18:00) Ceftriaxone For Im Use (Rocephin For Im (08/12/20 18:00) Lidocaine 1% Inj 20 Ml (Xylocaine 1% Inj (08/12/20 18:00) Vital Signs/I&O 08/12/20 17:26 Temp 35.6 Pulse 82 Resp 16 B/P (MAP) 105/73 (84) Pulse Ox 96 O2 Delivery Room Air Blood Pressure Mean: 84 Departure Impression Primary Impression: Dental caries Disposition: 01 HOME, SELF-CARE Condition: Stable Departure-Patient Inst. Decision time for Depature: 17:49 Referrals: [facility] [place] Primary Care Physician Patient Instructions: Dental Pain (DC) Add. Discharge Instructions: 1. Antibiotics and pain medication as directed. Return to ER for any concerns. All discharge instructions reviewed with patient and/or family. Voiced understanding. Scripts Naproxen (Naprosyn) 500 Mg Tablet 500 MG PO BID PRN for PAIN-MILD (1-4), #30 TAB 0 Refills Prov: LUIS A ULRICH APRN 08/12/20 Cephalexin (Keflex) 500 Mg Capsule 500 MG PO TID, #14 CAP Prov: LUIS A ULRICH APRN 08/12/20 LUIS A ULRICH APRN Aug 12, 2020 17:52
[2020-08-12] MEDS ORDERED: cefTRIAXone 1,000 MG/2.86 ml vial (IM ONLY) IM SCH (18:00)
[2020-08-12] MEDS ORDERED: LIDOCAINE 2% VISCOUS 15 ML UDC PO ONE (18:00)
[2020-08-12] MEDS ORDERED: LIDOCAINE 1% INJ 20 ML 20 ML VIAL INJ ONE (18:00)
[2020-08-12 18:28] VITALS: BP 0/0
--- NOTE | 2020-08-12 18:28 | NUR ---
PT DISCHARGED TO HOME W/ RX ET INSTR BY [employer].
== END 2020-08-12 18:28 | disposition home or self-care (01) ==
LOC: EDUNIT# 17:08 → ER 17:12
DX: K02.9 Dental caries, unspecified (principal); J45.909 Unspecified asthma, uncomplicated; Z88.0 Allergy status to penicillin; Z88.1 Allergy status to other antibiotic agents; Z82.49 Family history of ischemic heart disease and other diseases of the circulatory system; Z79.52 Long term (current) use of systemic steroids
CPT/HCPCS: 99284

== ENCOUNTER 2020-08-14 11:18 | Emergency (ER) | payer BC, MEDICAID ==
[~2020-08-14] VITALS: Ht 165 cm; Wt 86.8 kg
[~2020-08-14 11:18] MED LIST changes: +NAPR-1071 PO
[2020-08-14] MEDS ORDERED: RX-HYDROCODONE/APAP 5/325 MG #4 TAB PK PO PRN (12:00)
[2020-08-14] MEDS ORDERED: ACHD5005 PO (12:03)
[2020-08-14] MEDS ORDERED: METR-145 PO (12:03)
--- NOTE | 2020-08-14 12:04 | ED EENT ---
History of Present Illness General Chief Complaint: Dental Problems/Pain Stated Complaint: TOOTH PAIN Source: patient Exam Limitations: no limitations History of Present Illness Date Seen by Provider: Aug 14, 2020 Time Seen by Provider: 12:01 Initial Comments To ER by private vehicle with reports of worsening of her right lower dental pain. I saw her a few days ago for this and prescribed Keflex and naproxen. Pain is not improving. Still no swelling but the pain has intensified. Timing/Duration: abrupt Severity: moderate Location: dental Associated Symptoms: denies symptoms Allergies and Home Medications Allergies Coded Allergies: amoxicillin (Verified Allergy, Unknown, 05/22/15) penicillin (Verified Allergy, Unknown, 05/22/15) Home Medications Albuterol Sulfate 1 Puff Puff, 2 PUFF INH Q4H PRN for WHEEZING 1 PUFF = 90 MCG Prescribed by: TAMARA FRAZIER on 03/02/20 1225 Cephalexin 500 Mg Capsule, 500 MG PO TID Prescribed by: LUIS A ULRICH on 08/12/20 175 Hydrocodone/Acetaminophen 1 Each Tablet, 1 EACH PO Q4H PRN for PAIN-MODERATE (5- 7) Prescribed by: LUIS A ULRICH on 08/14/20 1204 Metronidazole 500 Mg Tablet, 500 MG PO TID Prescribed by: LUIS A ULRICH on 08/14/20 1203 Mometasone Furoate 45 Gm Cream..g., 45 GM TP TID Prescribed by: LILLY CASTREJON on 06/06/2017 Naproxen 500 Mg Tablet, 500 MG PO BID PRN for PAIN-MILD (1-4) Prescribed by: LUIS A ULRICH on 08/12/20 1751 Prednisone 20 Mg Tab, 40 MG PO DAILY Prescribed by: LILLY CASTREJON on 06/06/2017 Patient Home Medication List Home Medication List Reviewed: Yes Review of Systems Review of Systems Constitutional: see HPI Eyes: No Symptoms Reported Ears: No Symptoms Reported Nose: no symptoms reported Mouth: see HPI Throat: no symptoms reported Respiratory: no symptoms reported Cardiovascular: no symptoms reported Musculoskeletal: no symptoms reported Past Ggvzprm-Mllcvw-Ycsexq Hx Patient Social History Type Used: Cigarettes Recent Foreign Travel: No Contact w/Someone Who Travel: No Recent Hopitalizations: No Immunizations Up To Date Tetanus Booster (TDap): Unknown PED Vaccines UTD: Yes Seasonal Allergies Seasonal Allergies: No Past Medical History Surgeries: No Respiratory: Yes Asthma Cardiac: No Neurological: No Reproductive Disorders: Yes Female Reproductive Disorders: 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 0.5oz. 78.187458ju; 31.00 BMI Method:Estimated General Appearance: WD/WN, no apparent distress Eyes: bilateral eye normal inspection, bilateral eye PERRL, bilateral eye EOMI Ears: bilateral ear auricle normal, bilateral ear canal normal, bilateral ear TM normal Mouth/Throat: No trismus; other (Tearful, no buccal swelling to suggest drainable abscess but there is a carious right lower molar.) Neck: non-tender, full range of motion; No lymphadenopathy (R), No lymphadenopathy (L) Respiratory: no respiratory distress, no accessory muscle use Neurologic/Psychiatric: alert, normal mood/affect, oriented x 3 Skin: normal color, warm/dry Progress/Results/Core Measures Results/Orders My Orders Orders - LUIS A ULRICH APRN Rx-Hydrocodone/Apap 5-325 Mg (Rx-Vicodin (08/14/20 12:00) Metronidazole Tablet (Flagyl Tablet) (08/14/20 12:15) Vital Signs/I&O 08/14/20 12:00 Temp 36.8 Pulse 94 Resp 18 B/P (MAP) 114/71 (85) Pulse Ox 99 Departure Communication (Admissions) Did a inferior alveolar nerve block on the right using 2 mL of 0.5% bupivacaine without epinephrine. Impression Primary Impression: Pain, dental Disposition: 01 HOME, SELF-CARE Condition: Stable Departure-Patient Inst. Decision time for Depature: 12:02 Referrals: [facility] (PCP/Family) Primary Care Physician Patient Instructions: Dental Pain ED Add. Discharge Instructions: 1. Add the second antibiotic called metronidazole as directed. Take the stronger pain medication as prescribed. Follow-up with your dentist as soon as possible. All discharge instructions reviewed with patient and/or family. Voiced unde rstanding. Scripts Hydrocodone/Acetaminophen (Hydrocodone-Acetamin 5-325 mg) 1 Each Tablet 1 EACH PO Q4H PRN for PAIN-MODERATE (5-7), #10 TAB Prov: LUI SA ULRICH APRN 08/14/20 Metronidazole (Metronidazole) 500 Mg Tablet 500 MG PO TID, #14 TAB 0 Refills Prov: LUIS A ULRICH APRN 08/14/20 LUIS A ULRICH APRN Aug 14, 2020 12:04
[2020-08-14 12:11] VITALS: BP 114/71
[2020-08-14] MEDS ORDERED: metroNIDAZOLE 500 MG (FLAGYL) TAB PO ONE (12:15)
== END 2020-08-14 12:12 | disposition home or self-care (01) ==
LOC: EDUNIT# 11:18 → ER 11:20
DX: K08.89 Other specified disorders of teeth and supporting structures (principal); J45.909 Unspecified asthma, uncomplicated; Z82.49 Family history of ischemic heart disease and other diseases of the circulatory system; Z88.0 Allergy status to penicillin; Z88.1 Allergy status to other antibiotic agents; Z79.52 Long term (current) use of systemic steroids
CPT/HCPCS: 99283

== ENCOUNTER 2021-07-18 11:44 | Emergency (ER) | payer BC, MEDICAID ==
[~2021-07-18 11:44] MED LIST changes: +METR-145 PO
--- NOTE | 2021-07-18 12:34 | ED General ---
General Chief Complaint: Cough/Cold/Flu Symptoms Stated Complaint: COUGHING,NAUSEA,SORE THROAT,COVID EXPOSURE Nursing Triage Note: Patient presents to the ED at 18 weeks gestation with c/o cough, nausea, and sore throat. Patient reports that she was recently exposed a neighbor who tested positive for COVID. Patient reports her symptoms began 3 days ago. Denies any diarrhea, fever, or vomiting. Source of Information: Patient History of Present Illness Date Seen by Provider: Jul 18, 2021 Time Seen by Provider: 11:48 Initial Comments 20-year-old female presenting with complaints of 3 days of cough, nausea and sore throat. She has not had any fever or chills. She is G3, P2 at 18 weeks and 5 days gestation. She has a neighbor who tested positive for Covid and has been coughing and her face and her children's face. She was concerned that they had contracted Covid from them since she started having symptoms after that. She denies any vaginal bleeding or spotting. She has had no vaginal discharge. She denies any pain or burning with urination. She was concerned and wanted herself and her 2 children to be checked for strep throat as well as Covid. Timing/Duration: 3-4 Days Severity: Moderate Associated Systoms: No Chest Pain; Cough; No Diaphoresis, No Fever/Chills, No Headaches, No Loss of Appetite, No Malaise; Nausea/Vomiting (nausea but no vomiting, unsure if the nausea is from or related to illness causing her cough); No Rash, No Seizure, No Shortness of Air, No Syncope, No Weakness Allergies and Home Medications Allergies Coded Allergies: amoxicillin (Verified Allergy, Unknown, 05/22/15) penicillin (Verified Allergy, Unknown, 05/22/15) Patient Home Medication List Home Medication List Reviewed: Yes Albuterol Sulfate (Ventolin Hfa) 1 Puff Puff, 2 PUFF INH Q4H PRN for WHEEZING Prescribed by: TAMARA FRAZIER on 03/02/20 1225 Cephalexin (Keflex) 500 Mg Capsule, 500 MG PO TID Prescribed by: LUIS A ULRICH on 08/12/20 1751 Hydrocodone/Acetaminophen (Hydrocodone-Acetamin 5-325 mg) 1 Each Tablet, 1 EACH PO Q4H PRN for PAIN-MODERATE (5-7) Prescribed by: LUIS A ULRICH on 08/14/20 1204 Metronidazole (Metronidazole) 500 Mg Tablet, 500 MG PO TID Prescribed by: LUIS A ULRICH on 08/14/20 1203 Mometasone Furoate (Mometasone Furoate) 45 Gm Cream..g., 45 GM TP TID Prescribed by: LILLY CASTREJON on 06/06/20 001 Naproxen (Naprosyn) 500 Mg Tablet, 500 MG PO BID PRN for PAIN-MILD (1-4) Prescribed by: LUIS A ULRICH on 08/12/20 175 Prednisone (Prednisone) 20 Mg Tab, 40 MG PO DAILY Prescribed by: LILLY CASTREJON on 06/06/20 001 Review of Systems Review of Systems Constitutional: No chills, No fever EENTM: nose congestion, throat pain; No epistaxis Respiratory: see HPI; No stridor, No wheezing Cardiovascular: No chest pain Gastrointestinal: No abdominal pain; nausea; No vomiting Genitourinary: No decreased output, No discharge, No dysuria, No frequency Musculoskeletal: no symptoms reported Skin: No rash Psychiatric/Neurological: Denies Headache Past Hbggyli-Izpwdt-Tcppmf Hx Patient Social History Tobacco Use?: No Use of E-Cig and/or Vaping dev: No Substance use?: No Alcohol Use?: No Pt feels they are or have been: No Immunizations Up To Date Tetanus Booster (TDap): Unknown PED Vaccines UTD: Yes First/Initial COVID19 Vaccinat: Not currently vaccinated Seasonal Allergies Seasonal Allergies: No Past Medical History Surgery/Hospitalization HX: Recent exposure to COVID Surgeries: No Respiratory: Yes Asthma Cardiac: No Neurological: No Reproductive Disorders: Yes Female Reproductive Disorders: 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 0.5oz. [id number]; 31.00 BMI Method:Estimated General Appearance: No Apparent Distress, WD/WN, Anxious HEENT: PERRL/EOMI, TMs Normal, Pharyngeal Erythema; No Photophobia, No Tonsillar Exudate, No Tonsillar Enlargement Neck: Full Range of Motion, Normal Inspection, Non Tender, Supple Respiratory: Chest Non Tender, Lungs Clear, Normal Breath Sounds, No Accessory Muscle Use, No Respiratory Distress Cardiovascular: Regular Rate, Rhythm, Normal Peripheral Pulses Gastrointestinal: Normal Bowel Sounds, No Pulsatile Mass, Non Tender, Soft, Other (gravid uterus) Rectal: Deferred Back: No CVA Tenderness Extremity: Normal Capillary Refill, Normal Inspection, No Pedal Edema Neurologic/Psychiatric: Alert, Oriented x3, 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 Norm as Tested Skin: Normal Color, Warm/Dry Progress/Results/Core Measures Suspected Sepsis SIRS Temperature: Pulse: 103 Respiratory Rate: 16 Blood Pressure 123 /79 Mean: 94 Results/Orders Lab Results Laboratory Tests Test 07/18/21 12:15 Range/Units Influenza Type A Antigen NEGATIVE NEGATIVE Influenza Type B Antigen NEGATIVE NEGATIVE Group A Streptococcus Screen NEGATIVE NEGATIVE My Orders Orders - MIREILLE JAQUEZ MD Rapid Strep A Screen (07/18/21 12:25) Influenza A & B Antigens (07/18/21 12:25) Covid 19 Inhouse Test (07/18/21 12:25) Heart Tones (07/18/21 12:27) Vital Signs/I&O 07/18/21 07/18/21 07/18/21 11:45 11:45 13:22 Temp 36.0 36.0 Pulse 103 89 Resp 16 16 B/P (MAP) 123/79 (94) 123/79 Pulse Ox 96 96 O2 Delivery Room Air Room Air Room Air Capillary Refill : Less Than 3 Seconds Blood Pressure Mean: 94 Progress Note #1: Progress Note With patient's exposure to Covid we will send off a swab to check for the lab. Advised patient that it does take at least 1 to 2 days to get those results. In the meantime she should isolate and quarantine until results are known. Continue to push fluids and rest. May use Benadryl and guaifenesin to help with cough and congestion. As she is currently will defer chest x-ray for now since she is not working hard to breathe and her oxygen saturation is okay. Progress Note #2: Progress Note Counseled patient on the negative strep and influenza swab. Covid swab is still pending. With her daughter being positive for RSV she certainly could also be suffering from a viral illness causing her symptoms. With her encourage patient to push fluids and rest. Follow-up through the OB clinic or primary clinic for continued concerns. Treat symptomatically with extra hydration and it would be safe for her to use Benadryl or guaifenesin such as Robitussin to help with cough and congestion. Departure Impression Primary Impression: Upper respiratory infection with cough and congestion Additional Impressions: Person under investigation for COVID-19 Incidental Acute sore throat Disposition: HOME, SELF-CARE Condition: Stable Departure-Patient Inst. Decision time for Depature: 13:05 Referrals: [facility] (PCP/Family) Primary Care Physician Patient Instructions: Sore Throat, Adult ED, Cough, Adult ED, COVID-19 ED Add. Discharge Instructions: Use humidifier at the bedside to help with congestion and cough. Continue to stay well hydrated and drink plenty of fluids. It would be safe to use Benadryl or plain Robitussin during to help with cough and congestion. For continued problems/concerns, check back with your regular provider or OB doctor. Remain in isolation and quarantine until you get results from the Covid test done today. You will get a call once the result is back and known. This could take 24 to 48 hours to get the result. All discharge instructions reviewed with patient and/or family. Voiced understan sandra. MIREILLE JAQUEZ MD Jul 18, 2021 12:34
[2021-07-18 13:22] VITALS: BP 123/79
== END 2021-07-18 13:42 | disposition home or self-care (01) ==
LOC: EDUNIT# 11:44 → ER FS 11:47
DX: J06.9 Acute upper respiratory infection, unspecified (principal); R09.81 Nasal congestion; J02.9 Acute pharyngitis, unspecified; J45.909 Unspecified asthma, uncomplicated; Z33.1 Pregnant state, incidental; Z20.822 Contact with and (suspected) exposure to COVID-19; Z79.52 Long term (current) use of systemic steroids
CPT/HCPCS: 87430; 87636; 87804